=== PATIENT | male | born 1970 | race Caucasian/White ===

== ENCOUNTER 2016-12-10 21:37 | Inpatient (IN) | payer MEDICARE, MEDICAID ==
[~2016-12-10] VITALS: Ht 167.6 cm; Wt 90.7 kg
[~2016-12-10 21:37] MED LIST: BENZ1TAB10 PO; DSS100 PO; FISH1CAP27 PO; GABA-533 PO; HYDR-4031 PO; MV-M1TAB2 PO; OMEP20 PO; QUET200T PO; SIMV-259 PO
[2016-12-10] MEDS ORDERED: LORazepam 2 MG TABLET PO PRN (22:00)
[2016-12-10] MEDS ORDERED: ZOLPIDEM TARTRATE 10 MG TABLET PO PRN (22:00)
[2016-12-10] MEDS ORDERED: QUEtiapine FUMARATE 100 MG TABLET PO PRN (22:00)
[2016-12-10] MEDS ORDERED: HALOPERIDOL 5 MG TABLET PO PRN (22:00)
[2016-12-10 22:36] VITALS: BP 108/78
[2016-12-10 23:49] VITALS: BP 110/68
[2016-12-11] MEDS ORDERED: PNEUMOCOCCAL VACCINE POLYVALENT 0.5 ML VIAL [PPSV23] IM ONE (03:15)
[2016-12-11 08:03] LABS: BASOPHILS % (AUTO) 0.2 % (0.0-2.0); EOSINOPHILS % (AUTO) 3.7 % (1.0-6.0); HEMATOCRIT 46.6 % (41-53); HEMOGLOBIN 15.1 g/dL (13.5-17.5); LYMPHOCYTES # (AUTO) 2.7 K/uL (1.0-4.8); LYMPHOCYTES % (AUTO) 26.2 % (22.0-44.0); MEAN CORPUSCULAR HEMOGLOBIN 28.7 pg (26.0-34.0); MEAN CORPUSCULAR HGB CONC 32.5 G/dL (31.0-37.0); MEAN CORPUSCULAR VOLUME 88 fL (80-100); MONOCYTES # (AUTO) 1.1 K/uL (0.1-1.0); MONOCYTES % (AUTO) 10.4 % (2.0-9.0); NEUTROPHILS # (AUTO) 6.1 K/uL (1.8-7.7); NEUTROPHILS % (AUTO) 59.5 % (40.0-70.0); PLATELET COUNT (AUTO) 307 K/uL (150-450); RED BLOOD CELL COUNT(AUTO) 5.26 MIL/uL (4.50-5.90); RED CELL DISTRIBUTION WIDTH 15.1 % (11.5-14.5); WHITE BLOOD COUNT (AUTO) 10.3 K/uL (4.5-11.0)
[2016-12-11 08:10] VITALS: BP 121/67
[2016-12-11 08:20] LABS: ALANINE AMINOTRANSFERASE 44 U/L (12-78); ALBUMIN 3.5 g/dL (3.4-5.0); ANION GAP 8 mmol/L (8-16); ASPARTATE AMINOTRANSFERASE 28 U/L (15-37); BILIRUBIN,TOTAL 0.3 mg/dL (0.1-1.0); CALCIUM, TOTAL 8.9 mg/dL (8.8-10.5); CARBON DIOXIDE 27 mmol/L (22-29); CHLORIDE 105 mmol/L (98-107); CREATININE 1.04 mg/dL (0.60-1.30); GLOMERULAR FILTR. RATE CALC > 60 mL/min (>60); POTASSIUM 4.7 mmol/L (3.5-5.1); SODIUM SERUM 140 mmol/L (136-145); TOTAL PROTEIN, SERUM 6.7 g/dL (6.4-8.2); UREA NITROGEN, BLOOD 17 mg/dL (7-18)
[2016-12-11] MEDS ORDERED: PETROLATUM,WHITE 71 GM JELLY TP PRN (09:00)
[2016-12-11] MEDS ORDERED: CloNIDine HCL 0.1 MG TABLET PO PRN (09:00)
[2016-12-11] MEDS ORDERED: MAG HYDROX/AL HYDROX/SIMETH ES 30 ML SUSPENSION UDCUP PO PRN (09:00)
[2016-12-11] MEDS ORDERED: ALBUTEROL SULFATE HFA 90 MCG/PUFF 8 GM INHALER IH PRN (09:00)
[2016-12-11] MEDS ORDERED: MAGNESIUM HYDROXIDE SUSPENSION 30 ML UDCUP PO PRN (09:00)
[2016-12-11] MEDS ORDERED: ACETAMINOPHEN 325 MG TABLET PO PRN (09:00)
[2016-12-11] MEDS ORDERED: LOPERAMIDE HCL 2 MG CAPSULE PO PRN (09:00)
[2016-12-11] MEDS ORDERED: BACITRACIN 28.4 GM OINTMENT TP PRN (09:00)
[2016-12-11] MEDS ORDERED: ONDANSETRON HCL 4 MG TABLET PO PRN (09:00)
[2016-12-11] MEDS ORDERED: BENZOCAINE/MENTHOL LOZENGE MM PRN (09:00)
[2016-12-11] MEDS: BENZTROPINE MESYLATE 1 MG TABLET PO SCH ×2 (09:36→20:14)
[2016-12-11] MEDS: FISH OIL/OMEGA-3 FATTY ACIDS 500 MG CAPSULE PO SCH (09:36)
[2016-12-11] MEDS: DOCUSATE SODIUM 250 MG CAPSULE PO SCH ×2 (09:36→16:27)
[2016-12-11] MEDS: GABAPENTIN 400 MG CAPSULE PO SCH ×4 (09:37→20:14)
[2016-12-11] MEDS: HydrOXYzine PAMOATE 25 MG CAPSULE PO SCH ×3 (09:37→20:13)
[2016-12-11] MEDS: MULTIVITAMINS WITH MINERALS, THERAPEUTIC TABLET PO SCH (09:37)
[2016-12-11 16:10] VITALS: BP 119/83
[2016-12-11] MEDS: IBUPROFEN 600 MG TABLET PO PRN (16:52)
[2016-12-11] MEDS: QUEtiapine FUMARATE 200 MG TABLET PO SCH (20:13)
[2016-12-12 01:19] VITALS: BP 121/79
[2016-12-12] MEDS: FISH OIL/OMEGA-3 FATTY ACIDS 500 MG CAPSULE PO SCH (08:36)
[2016-12-12] MEDS: BENZTROPINE MESYLATE 1 MG TABLET PO SCH ×2 (08:36→20:24)
[2016-12-12] MEDS: DOCUSATE SODIUM 250 MG CAPSULE PO SCH ×2 (08:36→17:07)
[2016-12-12] MEDS: HydrOXYzine PAMOATE 25 MG CAPSULE PO SCH ×3 (08:36→20:24)
[2016-12-12] MEDS: GABAPENTIN 400 MG CAPSULE PO SCH ×4 (08:36→20:24)
[2016-12-12] MEDS: MULTIVITAMINS WITH MINERALS, THERAPEUTIC TABLET PO SCH (08:36)
[2016-12-12 08:37] VITALS: BP 102/68
[2016-12-12] MEDS: IBUPROFEN 600 MG TABLET PO PRN ×2 (08:39→21:09)
[2016-12-12 16:13] VITALS: BP 106/63
[2016-12-12] MEDS: QUEtiapine FUMARATE 200 MG TABLET PO SCH (20:24)
[2016-12-12 21:09] VITALS: BP 110/66
[2016-12-13 06:34] VITALS: BP 104/62
[2016-12-13 08:28] VITALS: BP 117/68
[2016-12-13] MEDS: HydrOXYzine PAMOATE 25 MG CAPSULE PO SCH ×3 (09:32→20:38)
[2016-12-13] MEDS: MULTIVITAMINS WITH MINERALS, THERAPEUTIC TABLET PO SCH (09:32)
[2016-12-13] MEDS: FISH OIL/OMEGA-3 FATTY ACIDS 500 MG CAPSULE PO SCH (09:32)
[2016-12-13] MEDS: BENZTROPINE MESYLATE 1 MG TABLET PO SCH ×2 (09:32→20:38)
[2016-12-13] MEDS: DOCUSATE SODIUM 250 MG CAPSULE PO SCH ×2 (09:32→16:37)
[2016-12-13] MEDS: GABAPENTIN 400 MG CAPSULE PO SCH ×4 (09:35→20:38)
[2016-12-13] MEDS: IBUPROFEN 600 MG TABLET PO PRN ×2 (09:53→18:57)
[2016-12-13 09:56] LABS: APPEARANCE,URINE CLEAR (CLEAR); GLUCOSE, URINE (UA) NEGATIVE (NEGATIVE); KETONES,URINE NEGATIVE (NEGATIVE); LEUKOCYTE ESTERASE ,URINE NEGATIVE (NEGATIVE); OCCULT BLOOD,URINE NEGATIVE (NEGATIVE); PH,URINE 6.5 (5.0-8.0); PROTEIN,URINE NEGATIVE (NEGATIVE)
[2016-12-13 09:57] VITALS: BP 121/85
[2016-12-13 10:01] LABS: ADD UA MICROSCOPIC NO
[2016-12-13 16:00] VITALS: BP 119/76
[2016-12-13 18:53] VITALS: BP 124/66
[2016-12-13] MEDS: QUEtiapine FUMARATE 200 MG TABLET PO SCH (20:37)
[2016-12-14 02:29] VITALS: BP 102/71
[2016-12-14] MEDS: DOCUSATE SODIUM 250 MG CAPSULE PO SCH ×2 (08:38→16:27)
[2016-12-14] MEDS: MULTIVITAMINS WITH MINERALS, THERAPEUTIC TABLET PO SCH (08:38)
[2016-12-14] MEDS: BENZTROPINE MESYLATE 1 MG TABLET PO SCH ×2 (08:38→20:40)
[2016-12-14] MEDS: GABAPENTIN 400 MG CAPSULE PO SCH ×3 (08:38→17:07)
[2016-12-14] MEDS: HydrOXYzine PAMOATE 25 MG CAPSULE PO SCH ×3 (08:38→20:41)
[2016-12-14 08:45] VITALS: BP 118/79
[2016-12-14] MEDS: IBUPROFEN 600 MG TABLET PO PRN ×2 (09:01→20:22)
[2016-12-14] MEDS: FISH OIL/OMEGA-3 FATTY ACIDS 500 MG CAPSULE PO SCH (09:01)
[2016-12-14 16:23] VITALS: BP 118/86
[2016-12-14 20:15] VITALS: BP 122/83
[2016-12-14] MEDS: GABAPENTIN 300 MG CAPSULE PO SCH (20:41)
[2016-12-14] MEDS: QUEtiapine FUMARATE 200 MG TABLET PO SCH (20:41)
[2016-12-15 00:06] VITALS: BP 105/70
[2016-12-15] MEDS: GABAPENTIN 300 MG CAPSULE PO SCH ×4 (06:42→20:38)
[2016-12-15] MEDS: HydrOXYzine PAMOATE 25 MG CAPSULE PO SCH ×3 (07:54→20:38)
[2016-12-15] MEDS: MULTIVITAMINS WITH MINERALS, THERAPEUTIC TABLET PO SCH (07:54)
[2016-12-15] MEDS: DOCUSATE SODIUM 250 MG CAPSULE PO SCH ×2 (07:54→18:05)
[2016-12-15] MEDS: BENZTROPINE MESYLATE 1 MG TABLET PO SCH ×2 (07:54→20:39)
[2016-12-15] MEDS: FISH OIL/OMEGA-3 FATTY ACIDS 500 MG CAPSULE PO SCH (08:00)
[2016-12-15 08:13] VITALS: BP 123/84
[2016-12-15 16:00] VITALS: BP 120/86
[2016-12-15] MEDS: IBUPROFEN 600 MG TABLET PO PRN (20:20)
[2016-12-15 20:21] VITALS: BP 119/79
[2016-12-15] MEDS: QUEtiapine FUMARATE 200 MG TABLET PO SCH (20:38)
[2016-12-16 00:03] VITALS: BP 117/71
[2016-12-16] MEDS: GABAPENTIN 300 MG CAPSULE PO SCH ×4 (07:18→20:45)
[2016-12-16] MEDS: DOCUSATE SODIUM 250 MG CAPSULE PO SCH ×2 (08:06→17:10)
[2016-12-16] MEDS: BENZTROPINE MESYLATE 1 MG TABLET PO SCH ×2 (08:06→20:44)
[2016-12-16] MEDS: MULTIVITAMINS WITH MINERALS, THERAPEUTIC TABLET PO SCH (08:06)
[2016-12-16] MEDS: FISH OIL/OMEGA-3 FATTY ACIDS 500 MG CAPSULE PO SCH (08:06)
[2016-12-16] MEDS: HydrOXYzine PAMOATE 25 MG CAPSULE PO SCH ×3 (08:08→20:45)
[2016-12-16 09:07] VITALS: BP 127/98
[2016-12-16] MEDS: IBUPROFEN 600 MG TABLET PO PRN (10:07)
[2016-12-16 10:10] VITALS: BP 108/77
[2016-12-16 16:13] VITALS: BP 115/75
[2016-12-16] MEDS: QUEtiapine FUMARATE 200 MG TABLET PO SCH (20:45)
[2016-12-17 02:43] VITALS: BP 109/79
[2016-12-17] MEDS: IBUPROFEN 600 MG TABLET PO PRN ×3 (03:18→21:41)
[2016-12-17] MEDS: GABAPENTIN 300 MG CAPSULE PO SCH ×4 (06:46→20:41)
[2016-12-17] MEDS: FISH OIL/OMEGA-3 FATTY ACIDS 500 MG CAPSULE PO SCH (08:33)
[2016-12-17] MEDS: DOCUSATE SODIUM 250 MG CAPSULE PO SCH ×2 (08:33→17:12)
[2016-12-17] MEDS: BENZTROPINE MESYLATE 1 MG TABLET PO SCH ×2 (08:34→20:40)
[2016-12-17] MEDS: HydrOXYzine PAMOATE 25 MG CAPSULE PO SCH ×3 (08:34→20:41)
[2016-12-17] MEDS: MULTIVITAMINS WITH MINERALS, THERAPEUTIC TABLET PO SCH (08:34)
[2016-12-17 09:21] VITALS: BP 114/79
[2016-12-17 12:22] VITALS: BP 118/80
[2016-12-17 16:27] VITALS: BP 120/74
[2016-12-17] MEDS: QUEtiapine FUMARATE 200 MG TABLET PO SCH (20:41)
[2016-12-17 21:41] VITALS: BP 116/76
[2016-12-18 02:14] VITALS: BP 120/71
[2016-12-18] MEDS: GABAPENTIN 300 MG CAPSULE PO SCH ×4 (06:25→20:34)
[2016-12-18] MEDS: DOCUSATE SODIUM 250 MG CAPSULE PO SCH ×2 (08:18→16:28)
[2016-12-18] MEDS: MULTIVITAMINS WITH MINERALS, THERAPEUTIC TABLET PO SCH (08:18)
[2016-12-18] MEDS: QUEtiapine FUMARATE 100 MG TABLET PO SCH (08:18)
[2016-12-18] MEDS: HydrOXYzine PAMOATE 25 MG CAPSULE PO SCH ×3 (08:18→20:34)
[2016-12-18] MEDS: BENZTROPINE MESYLATE 1 MG TABLET PO SCH ×2 (08:18→20:34)
[2016-12-18] MEDS: FISH OIL/OMEGA-3 FATTY ACIDS 500 MG CAPSULE PO SCH (08:18)
[2016-12-18 08:22] VITALS: BP 118/79
[2016-12-18 16:14] VITALS: BP 123/72
[2016-12-18] MEDS: IBUPROFEN 600 MG TABLET PO PRN (16:29)
[2016-12-18] MEDS: QUEtiapine FUMARATE 200 MG TABLET PO SCH (20:34)
[2016-12-19 01:15] VITALS: BP 112/78
[2016-12-19] MEDS: IBUPROFEN 600 MG TABLET PO PRN ×2 (06:12→20:55)
[2016-12-19] MEDS: GABAPENTIN 300 MG CAPSULE PO SCH ×4 (06:46→20:16)
[2016-12-19 08:05] VITALS: BP 123/78
[2016-12-19] MEDS: MULTIVITAMINS WITH MINERALS, THERAPEUTIC TABLET PO SCH (08:59)
[2016-12-19] MEDS: HydrOXYzine PAMOATE 25 MG CAPSULE PO SCH ×3 (08:59→20:15)
[2016-12-19] MEDS: DOCUSATE SODIUM 250 MG CAPSULE PO SCH ×2 (08:59→16:15)
[2016-12-19] MEDS: BENZTROPINE MESYLATE 1 MG TABLET PO SCH ×2 (08:59→20:15)
[2016-12-19] MEDS: FISH OIL/OMEGA-3 FATTY ACIDS 500 MG CAPSULE PO SCH (09:00)
[2016-12-19] MEDS: QUEtiapine FUMARATE 100 MG TABLET PO SCH (09:10)
[2016-12-19 16:21] VITALS: BP 105/73
[2016-12-19] MEDS: QUEtiapine FUMARATE 200 MG TABLET PO SCH (20:15)
[2016-12-19 20:57] VITALS: BP 134/84
[2016-12-20 03:17] VITALS: BP 119/68
[2016-12-20] MEDS: GABAPENTIN 300 MG CAPSULE PO SCH (06:35)
[2016-12-20 08:14] VITALS: BP 120/76
[2016-12-20] MEDS: HydrOXYzine PAMOATE 25 MG CAPSULE PO SCH (08:31)
[2016-12-20] MEDS: BENZTROPINE MESYLATE 1 MG TABLET PO SCH (08:31)
[2016-12-20] MEDS: MULTIVITAMINS WITH MINERALS, THERAPEUTIC TABLET PO SCH (08:31)
[2016-12-20] MEDS: QUEtiapine FUMARATE 100 MG TABLET PO SCH (08:31)
[2016-12-20] MEDS: DOCUSATE SODIUM 250 MG CAPSULE PO SCH (08:31)
[2016-12-20] MEDS: FISH OIL/OMEGA-3 FATTY ACIDS 500 MG CAPSULE PO SCH (08:31)
[2016-12-20] MEDS ORDERED: QUET100T PO (08:46)
== END 2016-12-20 09:15 | disposition home or self-care (01) | DRG 885 ==
LOC: B2X 22:24 → EDSTATUS 22:53 → B2X 12-13 14:54
PROVIDERS: ADMIT Psychiatry & Neurology Psychiatry; ATTEND Psychiatry & Neurology Psychiatry
DX: F31.63 Bipolar disorder, current episode mixed, severe, without psychotic features (principal); R45.851 Suicidal ideations; F15.20 Other stimulant dependence, uncomplicated; J44.9 Chronic obstructive pulmonary disease, unspecified; K59.09 Other constipation; E66.9 Obesity, unspecified; F12.10 Cannabis abuse, uncomplicated; E78.5 Hyperlipidemia, unspecified; F41.9 Anxiety disorder, unspecified; F25.9 Schizoaffective disorder, unspecified; K21.9 Gastro-esophageal reflux disease without esophagitis; G47.00 Insomnia, unspecified; F17.210 Nicotine dependence, cigarettes, uncomplicated; Z71.6 Tobacco abuse counseling; Z71.51 Drug abuse counseling and surveillance of drug abuser; Z68.32 Body mass index [BMI] 32.0-32.9, adult; Z90.49 Acquired absence of other specified parts of digestive tract; Z80.0 Family history of malignant neoplasm of digestive organs; Z28.21 Immunization not carried out because of patient refusal
CPT/HCPCS: 80307; 82607; 82746

== ENCOUNTER 2016-12-27 12:43 | Inpatient (IN) | payer MEDICARE, MEDICAID ==
[~2016-12-27] VITALS: Ht 167.6 cm; Wt 93.8 kg
[~2016-12-27 12:43] MED LIST changes: -OMEP20 PO; +QUET100T PO; -SIMV-259 PO
[2016-12-27] MEDS ORDERED: DOCU250C91 PO (13:38)
[2016-12-27] MEDS ORDERED: GABA-531 PO (13:38)
[2016-12-27 16:04] VITALS: BP 118/86
[2016-12-27] MEDS: GABAPENTIN 300 MG CAPSULE PO SCH ×2 (16:30→20:38)
[2016-12-27] MEDS: HydrOXYzine PAMOATE 25 MG CAPSULE PO SCH ×2 (16:30→20:38)
[2016-12-27] MEDS: DOCUSATE SODIUM 250 MG CAPSULE PO SCH (16:30)
[2016-12-27] MEDS ORDERED: PNEUMOCOCCAL VACCINE POLYVALENT 0.5 ML VIAL [PPSV23] IM ONE (17:15)
[2016-12-27] MEDS ORDERED: IBUPROFEN 600 MG TABLET PO PRN (20:30)
[2016-12-27] MEDS: QUEtiapine FUMARATE 300 MG TABLET PO SCH (20:38)
[2016-12-27] MEDS: BENZTROPINE MESYLATE 1 MG TABLET PO SCH (20:38)
[2016-12-28 01:49] VITALS: BP 106/68
[2016-12-28 01:50] VITALS: BP 106/68
[2016-12-28] MEDS ORDERED: MAG HYDROX/AL HYDROX/SIMETH ES 30 ML SUSPENSION UDCUP PO PRN (08:00)
[2016-12-28] MEDS ORDERED: ACETAMINOPHEN 325 MG TABLET PO PRN (08:00)
[2016-12-28] MEDS ORDERED: CloNIDine HCL 0.1 MG TABLET PO PRN (08:00)
[2016-12-28] MEDS ORDERED: BACITRACIN 28.4 GM OINTMENT TP PRN (08:00)
[2016-12-28] MEDS ORDERED: BENZOCAINE/MENTHOL LOZENGE MM PRN (08:00)
[2016-12-28] MEDS ORDERED: PETROLATUM,WHITE 71 GM JELLY TP PRN (08:00)
[2016-12-28] MEDS ORDERED: ALBUTEROL SULFATE HFA 90 MCG/PUFF 8 GM INHALER IH PRN (08:00)
[2016-12-28] MEDS ORDERED: ONDANSETRON HCL 4 MG TABLET PO PRN (08:00)
[2016-12-28] MEDS ORDERED: LOPERAMIDE HCL 2 MG CAPSULE PO PRN (08:00)
[2016-12-28] MEDS ORDERED: MAGNESIUM HYDROXIDE SUSPENSION 30 ML UDCUP PO PRN (08:00)
[2016-12-28 08:14] VITALS: BP 111/69
[2016-12-28] MEDS: HydrOXYzine PAMOATE 25 MG CAPSULE PO SCH ×3 (09:25→20:42)
[2016-12-28] MEDS: GABAPENTIN 300 MG CAPSULE PO SCH ×4 (09:25→20:42)
[2016-12-28] MEDS: FISH OIL/OMEGA-3 FATTY ACIDS 500 MG CAPSULE PO SCH (09:25)
[2016-12-28] MEDS: DOCUSATE SODIUM 250 MG CAPSULE PO SCH ×2 (09:25→16:43)
[2016-12-28] MEDS: BENZTROPINE MESYLATE 1 MG TABLET PO SCH ×2 (09:29→20:42)
[2016-12-28] MEDS: MULTIVITAMINS WITH MINERALS, THERAPEUTIC TABLET PO SCH (09:29)
[2016-12-28] MEDS: OMEPRAZOLE 20 MG CAPSULE PO SCH (09:38)
[2016-12-28 16:00] VITALS: BP 120/75
[2016-12-28] MEDS: IBUPROFEN 600 MG TABLET PO PRN (16:09)
[2016-12-28] MEDS: QUEtiapine FUMARATE 300 MG TABLET PO SCH (21:00)
[2016-12-29 06:15] VITALS: BP 122/70
[2016-12-29] MEDS: IBUPROFEN 600 MG TABLET PO PRN ×2 (06:23→20:53)
[2016-12-29 08:14] VITALS: BP 109/65
[2016-12-29] MEDS: BENZTROPINE MESYLATE 1 MG TABLET PO SCH ×2 (09:08→20:45)
[2016-12-29] MEDS: GABAPENTIN 300 MG CAPSULE PO SCH ×4 (09:09→20:45)
[2016-12-29] MEDS: FISH OIL/OMEGA-3 FATTY ACIDS 500 MG CAPSULE PO SCH (09:09)
[2016-12-29] MEDS: OMEPRAZOLE 20 MG CAPSULE PO SCH (09:09)
[2016-12-29] MEDS: MULTIVITAMINS WITH MINERALS, THERAPEUTIC TABLET PO SCH (09:09)
[2016-12-29] MEDS: DOCUSATE SODIUM 250 MG CAPSULE PO SCH ×2 (09:09→16:39)
[2016-12-29] MEDS: HydrOXYzine PAMOATE 25 MG CAPSULE PO SCH ×3 (09:09→20:45)
[2016-12-29 16:19] VITALS: BP 107/62
[2016-12-29 20:53] VITALS: BP 120/75
[2016-12-29] MEDS: QUEtiapine FUMARATE 300 MG TABLET PO SCH (21:00)
[2016-12-29] MEDS: QUEtiapine FUMARATE 200 MG TABLET PO SCH (22:36)
[2016-12-30 06:23] VITALS: BP 110/70
[2016-12-30 08:15] VITALS: BP 114/83
[2016-12-30] MEDS: BENZTROPINE MESYLATE 1 MG TABLET PO SCH ×2 (09:20→20:47)
[2016-12-30] MEDS: DOCUSATE SODIUM 250 MG CAPSULE PO SCH ×2 (09:20→16:31)
[2016-12-30] MEDS: FISH OIL/OMEGA-3 FATTY ACIDS 500 MG CAPSULE PO SCH (09:20)
[2016-12-30] MEDS: OMEPRAZOLE 20 MG CAPSULE PO SCH (09:20)
[2016-12-30] MEDS: MULTIVITAMINS WITH MINERALS, THERAPEUTIC TABLET PO SCH (09:20)
[2016-12-30] MEDS: HydrOXYzine PAMOATE 25 MG CAPSULE PO SCH ×3 (09:21→20:47)
[2016-12-30] MEDS: GABAPENTIN 300 MG CAPSULE PO SCH ×4 (09:23→20:47)
[2016-12-30] MEDS: IBUPROFEN 600 MG TABLET PO PRN ×2 (10:08→22:11)
[2016-12-30 16:28] VITALS: BP 109/65
[2016-12-30] MEDS: QUEtiapine FUMARATE 200 MG TABLET PO SCH (20:47)
[2016-12-30] MEDS ORDERED: TOPIRAMATE 25 MG TABLET PO SCH (21:00)
[2016-12-30 22:11] VITALS: BP 128/78
[2016-12-31 00:15] VITALS: BP 113/66
[2016-12-31] MEDS: HydrOXYzine PAMOATE 25 MG CAPSULE PO SCH ×3 (08:12→21:27)
[2016-12-31] MEDS: DOCUSATE SODIUM 250 MG CAPSULE PO SCH ×2 (08:12→18:36)
[2016-12-31] MEDS: FISH OIL/OMEGA-3 FATTY ACIDS 500 MG CAPSULE PO SCH (08:12)
[2016-12-31] MEDS: MULTIVITAMINS WITH MINERALS, THERAPEUTIC TABLET PO SCH (08:12)
[2016-12-31] MEDS: BENZTROPINE MESYLATE 1 MG TABLET PO SCH ×2 (08:12→20:54)
[2016-12-31] MEDS: OMEPRAZOLE 20 MG CAPSULE PO SCH (08:12)
[2016-12-31] MEDS: GABAPENTIN 100 MG CAPSULE PO SCH ×2 (08:12→18:36)
[2016-12-31 08:16] VITALS: BP 115/68
[2016-12-31 09:19] VITALS: BP 118/68
[2016-12-31] MEDS: IBUPROFEN 600 MG TABLET PO PRN ×2 (09:19→22:56)
[2016-12-31 16:15] VITALS: BP 139/78
[2016-12-31] MEDS: QUEtiapine FUMARATE 200 MG TABLET PO SCH (20:54)
[2016-12-31] MEDS: TOPIRAMATE 25 MG TABLET PO SCH (21:27)
[2017-01-01 06:59] VITALS: BP 119/81
[2017-01-01] MEDS: BENZTROPINE MESYLATE 1 MG TABLET PO SCH ×2 (09:12→20:37)
[2017-01-01] MEDS: FISH OIL/OMEGA-3 FATTY ACIDS 500 MG CAPSULE PO SCH (09:12)
[2017-01-01] MEDS: HydrOXYzine PAMOATE 25 MG CAPSULE PO SCH ×3 (09:12→20:37)
[2017-01-01] MEDS: MULTIVITAMINS WITH MINERALS, THERAPEUTIC TABLET PO SCH (09:12)
[2017-01-01] MEDS: GABAPENTIN 100 MG CAPSULE PO SCH ×2 (09:12→16:36)
[2017-01-01] MEDS: DOCUSATE SODIUM 250 MG CAPSULE PO SCH ×2 (09:12→16:36)
[2017-01-01] MEDS: OMEPRAZOLE 20 MG CAPSULE PO SCH (09:13)
[2017-01-01 09:17] VITALS: BP 108/63
[2017-01-01] MEDS: IBUPROFEN 600 MG TABLET PO PRN ×2 (09:22→16:09)
[2017-01-01 16:04] VITALS: BP 114/87
[2017-01-01] MEDS: QUEtiapine FUMARATE 200 MG TABLET PO SCH (20:37)
[2017-01-01] MEDS: TOPIRAMATE 25 MG TABLET PO SCH (20:37)
[2017-01-02] MEDS: FISH OIL/OMEGA-3 FATTY ACIDS 500 MG CAPSULE PO SCH (08:59)
[2017-01-02] MEDS: GABAPENTIN 100 MG CAPSULE PO SCH ×2 (09:00→16:41)
[2017-01-02] MEDS: MULTIVITAMINS WITH MINERALS, THERAPEUTIC TABLET PO SCH (09:00)
[2017-01-02] MEDS: BENZTROPINE MESYLATE 1 MG TABLET PO SCH ×2 (09:00→20:48)
[2017-01-02] MEDS: HydrOXYzine PAMOATE 25 MG CAPSULE PO SCH ×3 (09:00→20:48)
[2017-01-02] MEDS: OMEPRAZOLE 20 MG CAPSULE PO SCH (09:00)
[2017-01-02] MEDS: DOCUSATE SODIUM 250 MG CAPSULE PO SCH ×2 (09:00→16:41)
[2017-01-02 09:02] VITALS: BP 103/71
[2017-01-02] MEDS: IBUPROFEN 600 MG TABLET PO PRN ×2 (09:02→16:11)
[2017-01-02 16:11] VITALS: BP 112/78
[2017-01-02] MEDS: QUEtiapine FUMARATE 200 MG TABLET PO SCH (20:48)
[2017-01-02] MEDS: TOPIRAMATE 25 MG TABLET PO SCH (20:48)
[2017-01-03 08:13] VITALS: BP 117/62
[2017-01-03] MEDS: MULTIVITAMINS WITH MINERALS, THERAPEUTIC TABLET PO SCH (09:04)
[2017-01-03] MEDS: HydrOXYzine PAMOATE 25 MG CAPSULE PO SCH ×3 (09:04→20:44)
[2017-01-03] MEDS: DOCUSATE SODIUM 250 MG CAPSULE PO SCH ×2 (09:04→16:52)
[2017-01-03] MEDS: FISH OIL/OMEGA-3 FATTY ACIDS 500 MG CAPSULE PO SCH (09:04)
[2017-01-03] MEDS: BENZTROPINE MESYLATE 1 MG TABLET PO SCH ×2 (09:04→20:44)
[2017-01-03] MEDS: OMEPRAZOLE 20 MG CAPSULE PO SCH (09:04)
[2017-01-03 16:18] VITALS: BP 111/64
[2017-01-03 19:49] VITALS: BP 125/70
[2017-01-03] MEDS: IBUPROFEN 600 MG TABLET PO PRN (19:49)
[2017-01-03] MEDS: QUEtiapine FUMARATE 200 MG TABLET PO SCH (20:44)
[2017-01-03] MEDS ORDERED: TOPIRAMATE 25 MG TABLET PO SCH (21:00)
[2017-01-03] MEDS ORDERED: OMEP20 PO (22:12)
[2017-01-03] MEDS ORDERED: TOPI25 PO (22:12)
[2017-01-03] MEDS ORDERED: OMEG-12 PO (22:12)
[2017-01-04 08:18] VITALS: BP 102/69
[2017-01-04] MEDS: HydrOXYzine PAMOATE 25 MG CAPSULE PO SCH (08:47)
[2017-01-04] MEDS: DOCUSATE SODIUM 250 MG CAPSULE PO SCH (08:47)
[2017-01-04] MEDS: MULTIVITAMINS WITH MINERALS, THERAPEUTIC TABLET PO SCH (08:47)
[2017-01-04] MEDS: FISH OIL/OMEGA-3 FATTY ACIDS 500 MG CAPSULE PO SCH (08:47)
[2017-01-04] MEDS: BENZTROPINE MESYLATE 1 MG TABLET PO SCH (08:47)
[2017-01-04] MEDS: OMEPRAZOLE 20 MG CAPSULE PO SCH (08:47)
== END 2017-01-04 09:45 | disposition home or self-care (01) | DRG 885 ==
LOC: B2X 13:18
PROVIDERS: ADMIT Psychiatry & Neurology Psychiatry; ATTEND Psychiatry & Neurology Psychiatry
DX: F31.63 Bipolar disorder, current episode mixed, severe, without psychotic features (principal); R45.851 Suicidal ideations; K59.00 Constipation, unspecified; R51 Headache; K21.9 Gastro-esophageal reflux disease without esophagitis; J44.9 Chronic obstructive pulmonary disease, unspecified; F12.90 Cannabis use, unspecified, uncomplicated; F17.200 Nicotine dependence, unspecified, uncomplicated; E66.9 Obesity, unspecified; F41.9 Anxiety disorder, unspecified; G47.00 Insomnia, unspecified; Z71.6 Tobacco abuse counseling; Z91.19 Patient's noncompliance with other medical treatment and regimen; Z79.899 Other long term (current) drug therapy; Z68.33 Body mass index [BMI] 33.0-33.9, adult; Z98.890 Other specified postprocedural states; Z91.030 Bee allergy status; Z91.018 Allergy to other foods; Z71.51 Drug abuse counseling and surveillance of drug abuser; Z28.21 Immunization not carried out because of patient refusal; Z80.0 Family history of malignant neoplasm of digestive organs
CPT/HCPCS: 87081

== ENCOUNTER 2017-03-01 14:19 | Inpatient (IN) | payer MEDICARE, MEDICAID ==
[~2017-03-01] VITALS: Ht 170.2 cm; Wt 85.3 kg
[~2017-03-01 14:19] MED LIST changes: +DOCU250C91 PO; -DSS100 PO; -FISH1CAP27 PO; -GABA-533 PO; -MV-M1TAB2 PO; +OMEG-12 PO; +OMEP20 PO; -QUET200T PO; +TOPI25 PO
[2017-03-01 14:40] VITALS: BP 109/52
[2017-03-01] MEDS ORDERED: ChlorproMAZINE HCL 100 MG TABLET PO PRN (14:45)
[2017-03-01] MEDS ORDERED: PNEUMOCOCCAL VACCINE POLYVALENT 0.5 ML VIAL [PPSV23] IM ONE (16:00)
[2017-03-01] MEDS: HydrOXYzine PAMOATE 25 MG CAPSULE PO SCH ×2 (16:49→21:07)
[2017-03-01 20:38] VITALS: BP 125/63
[2017-03-01] MEDS: BENZTROPINE MESYLATE 1 MG TABLET PO SCH (21:06)
[2017-03-01] MEDS: TOPIRAMATE 25 MG TABLET PO SCH (21:07)
[2017-03-01] MEDS ORDERED: BACITRACIN 28.4 GM OINTMENT TP PRN (21:30)
[2017-03-02 00:30] VITALS: BP 130/70
[2017-03-02 08:26] LABS: ALANINE AMINOTRANSFERASE 57 U/L (12-78); ALBUMIN 3.1 g/dL (3.4-5.0); ANION GAP 8 mmol/L (8-16); ASPARTATE AMINOTRANSFERASE 32 U/L (15-37); BILIRUBIN,TOTAL 0.2 mg/dL (0.1-1.0); CALCIUM, TOTAL 9.1 mg/dL (8.8-10.5); CARBON DIOXIDE 26 mmol/L (22-29); CHLORIDE 106 mmol/L (98-107); CREATININE 1.01 mg/dL (0.60-1.30); GLOMERULAR FILTR. RATE CALC > 60 mL/min (>60); POTASSIUM 3.8 mmol/L (3.5-5.1); SODIUM SERUM 140 mmol/L (136-145); TOTAL PROTEIN, SERUM 6.5 g/dL (6.4-8.2); UREA NITROGEN, BLOOD 16 mg/dL (7-18)
[2017-03-02 08:30] LABS: BASOPHILS % (AUTO) 0.3 % (0.0-2.0); EOSINOPHILS % (AUTO) 4.5 % (1.0-6.0); HEMATOCRIT 46.5 % (41-53); HEMOGLOBIN 14.7 g/dL (13.5-17.5); LYMPHOCYTES # (AUTO) 2.4 K/uL (1.0-4.8); LYMPHOCYTES % (AUTO) 30.9 % (22.0-44.0); MEAN CORPUSCULAR HEMOGLOBIN 28.6 pg (26.0-34.0); MEAN CORPUSCULAR HGB CONC 31.7 G/dL (31.0-37.0); MEAN CORPUSCULAR VOLUME 90 fL (80-100); MONOCYTES # (AUTO) 0.8 K/uL (0.1-1.0); MONOCYTES % (AUTO) 10.5 % (2.0-9.0); NEUTROPHILS # (AUTO) 4.2 K/uL (1.8-7.7); NEUTROPHILS % (AUTO) 53.8 % (40.0-70.0); PLATELET COUNT (AUTO) 317 K/uL (150-450); RED BLOOD CELL COUNT(AUTO) 5.15 MIL/uL (4.50-5.90); RED CELL DISTRIBUTION WIDTH 14.8 % (11.5-14.5); WHITE BLOOD COUNT (AUTO) 7.8 K/uL (4.5-11.0)
[2017-03-02 08:34] VITALS: BP 100/65
[2017-03-02] MEDS: OMEPRAZOLE 20 MG CAPSULE PO SCH (09:29)
[2017-03-02] MEDS: QUEtiapine FUMARATE 200 MG TABLET PO SCH (09:29)
[2017-03-02] MEDS: HydrOXYzine PAMOATE 25 MG CAPSULE PO SCH ×3 (09:29→20:23)
[2017-03-02] MEDS: FISH OIL/OMEGA-3 FATTY ACIDS 500 MG CAPSULE PO SCH (09:29)
[2017-03-02] MEDS: DOCUSATE SODIUM 250 MG CAPSULE PO SCH ×2 (09:29→17:25)
[2017-03-02] MEDS: BENZTROPINE MESYLATE 1 MG TABLET PO SCH ×2 (09:29→20:23)
[2017-03-02 16:26] VITALS: BP 118/75
[2017-03-02] MEDS: TOPIRAMATE 25 MG TABLET PO SCH (20:23)
[2017-03-03 08:19] VITALS: BP 102/67
[2017-03-03] MEDS: DOCUSATE SODIUM 250 MG CAPSULE PO SCH ×2 (08:40→17:04)
[2017-03-03] MEDS: FISH OIL/OMEGA-3 FATTY ACIDS 500 MG CAPSULE PO SCH (08:40)
[2017-03-03] MEDS: OMEPRAZOLE 20 MG CAPSULE PO SCH (08:40)
[2017-03-03] MEDS: QUEtiapine FUMARATE 200 MG TABLET PO SCH (08:40)
[2017-03-03] MEDS: HydrOXYzine PAMOATE 25 MG CAPSULE PO SCH ×3 (08:41→20:57)
[2017-03-03] MEDS: BENZTROPINE MESYLATE 1 MG TABLET PO SCH ×2 (08:41→20:57)
[2017-03-03 16:24] VITALS: BP 126/71
[2017-03-03] MEDS: TOPIRAMATE 25 MG TABLET PO SCH (20:57)
[2017-03-04] MEDS: OMEPRAZOLE 20 MG CAPSULE PO SCH (08:21)
[2017-03-04] MEDS: QUEtiapine FUMARATE 200 MG TABLET PO SCH (08:21)
[2017-03-04] MEDS: FISH OIL/OMEGA-3 FATTY ACIDS 500 MG CAPSULE PO SCH (08:21)
[2017-03-04] MEDS: DOCUSATE SODIUM 250 MG CAPSULE PO SCH ×2 (08:21→16:19)
[2017-03-04] MEDS: BENZTROPINE MESYLATE 1 MG TABLET PO SCH ×2 (08:21→20:21)
[2017-03-04] MEDS: HydrOXYzine PAMOATE 25 MG CAPSULE PO SCH ×3 (08:21→20:21)
[2017-03-04 08:38] VITALS: BP 106/63
[2017-03-04 16:17] VITALS: BP 112/66
[2017-03-04] MEDS: TOPIRAMATE 25 MG TABLET PO SCH (20:21)
[2017-03-05] MEDS: BENZTROPINE MESYLATE 1 MG TABLET PO SCH ×2 (08:07→20:39)
[2017-03-05] MEDS: HydrOXYzine PAMOATE 25 MG CAPSULE PO SCH ×3 (08:07→20:39)
[2017-03-05] MEDS: FISH OIL/OMEGA-3 FATTY ACIDS 500 MG CAPSULE PO SCH (08:07)
[2017-03-05] MEDS: OMEPRAZOLE 20 MG CAPSULE PO SCH (08:07)
[2017-03-05] MEDS: QUEtiapine FUMARATE 200 MG TABLET PO SCH (08:07)
[2017-03-05] MEDS: DOCUSATE SODIUM 250 MG CAPSULE PO SCH ×2 (08:08→16:12)
[2017-03-05] MEDS ORDERED: BENZOCAINE/MENTHOL LOZENGE MM PRN (08:45)
[2017-03-05 08:46] VITALS: BP 128/72
[2017-03-05] MEDS: LORazepam 1 MG TABLET PO PRN (16:13)
[2017-03-05 16:39] VITALS: BP 103/60
[2017-03-05] MEDS: TOPIRAMATE 25 MG TABLET PO SCH (20:39)
[2017-03-06 08:20] VITALS: BP 109/62
[2017-03-06] MEDS: DOCUSATE SODIUM 250 MG CAPSULE PO SCH ×2 (08:56→16:33)
[2017-03-06] MEDS: FISH OIL/OMEGA-3 FATTY ACIDS 500 MG CAPSULE PO SCH (08:56)
[2017-03-06] MEDS: OMEPRAZOLE 20 MG CAPSULE PO SCH (08:56)
[2017-03-06] MEDS: QUEtiapine FUMARATE 200 MG TABLET PO SCH (08:56)
[2017-03-06] MEDS: BENZTROPINE MESYLATE 1 MG TABLET PO SCH ×2 (09:09→20:22)
[2017-03-06] MEDS: HydrOXYzine PAMOATE 25 MG CAPSULE PO SCH ×3 (09:09→20:22)
[2017-03-06] MEDS: LORazepam 1 MG TABLET PO PRN (10:17)
[2017-03-06 16:00] VITALS: BP 113/71
[2017-03-06] MEDS: TOPIRAMATE 25 MG TABLET PO SCH (20:22)
[2017-03-07 08:09] LABS: APPEARANCE,URINE CLEAR (CLEAR); GLUCOSE, URINE (UA) NEGATIVE (NEGATIVE); KETONES,URINE NEGATIVE (NEGATIVE); LEUKOCYTE ESTERASE ,URINE NEGATIVE (NEGATIVE); OCCULT BLOOD,URINE NEGATIVE (NEGATIVE); PH,URINE 5.5 (5.0-8.0); PROTEIN,URINE NEGATIVE (NEGATIVE)
[2017-03-07 08:10] LABS: ADD UA MICROSCOPIC NO
[2017-03-07 08:12] VITALS: BP 117/62
[2017-03-07] MEDS: HydrOXYzine PAMOATE 25 MG CAPSULE PO SCH ×3 (08:49→21:05)
[2017-03-07] MEDS: DOCUSATE SODIUM 250 MG CAPSULE PO SCH ×2 (08:49→16:28)
[2017-03-07] MEDS: FISH OIL/OMEGA-3 FATTY ACIDS 500 MG CAPSULE PO SCH (08:49)
[2017-03-07] MEDS: QUEtiapine FUMARATE 200 MG TABLET PO SCH (08:49)
[2017-03-07] MEDS: BENZTROPINE MESYLATE 1 MG TABLET PO SCH ×2 (08:49→21:04)
[2017-03-07] MEDS: OMEPRAZOLE 20 MG CAPSULE PO SCH (08:49)
[2017-03-07] MEDS: MULTIVITAMINS WITH MINERALS, THERAPEUTIC TABLET PO SCH (08:51)
[2017-03-07 16:13] VITALS: BP 103/71
[2017-03-07] MEDS ORDERED: QUET200T PO (19:49)
[2017-03-07] MEDS: TOPIRAMATE 25 MG TABLET PO SCH (21:04)
[2017-03-07] MEDS: ZOLPIDEM TARTRATE 5 MG TABLET PO PRN (22:28)
[2017-03-08 06:58] VITALS: BP 110/68
[2017-03-08] MEDS: DOCUSATE SODIUM 250 MG CAPSULE PO SCH ×2 (08:25→16:10)
[2017-03-08] MEDS: FISH OIL/OMEGA-3 FATTY ACIDS 500 MG CAPSULE PO SCH (08:25)
[2017-03-08] MEDS: BENZTROPINE MESYLATE 1 MG TABLET PO SCH ×2 (08:25→20:19)
[2017-03-08] MEDS: HydrOXYzine PAMOATE 25 MG CAPSULE PO SCH ×3 (08:25→20:19)
[2017-03-08] MEDS: OMEPRAZOLE 20 MG CAPSULE PO SCH (08:25)
[2017-03-08] MEDS: MULTIVITAMINS WITH MINERALS, THERAPEUTIC TABLET PO SCH (08:26)
[2017-03-08 08:39] VITALS: BP 104/67
[2017-03-08 16:00] VITALS: BP 130/79
[2017-03-08] MEDS: TOPIRAMATE 25 MG TABLET PO SCH (20:19)
[2017-03-08] MEDS ORDERED: QUEtiapine FUMARATE 300 MG TABLET PO SCH (21:00)
[2017-03-08] MEDS: ZOLPIDEM TARTRATE 5 MG TABLET PO PRN (21:26)
[2017-03-09] MEDS ORDERED: QUET300T2 PO (04:56)
[2017-03-09] MEDS ORDERED: TOPI100 PO (04:56)
[2017-03-09] MEDS ORDERED: MV-M1TAB2 PO (04:56)
[2017-03-09 06:26] VITALS: BP 133/69
== END 2017-03-09 07:15 | disposition home or self-care (01) | DRG 885 ==
LOC: B2S 15:10
PROVIDERS: ADMIT Psychiatry & Neurology Psychiatry; ATTEND Psychiatry & Neurology Psychiatry
DX: F31.9 Bipolar disorder, unspecified (principal); R45.851 Suicidal ideations; F15.20 Other stimulant dependence, uncomplicated; K21.9 Gastro-esophageal reflux disease without esophagitis; K59.09 Other constipation; J44.9 Chronic obstructive pulmonary disease, unspecified; E78.5 Hyperlipidemia, unspecified; G47.00 Insomnia, unspecified; R53.83 Other fatigue; F17.200 Nicotine dependence, unspecified, uncomplicated; F22 Delusional disorders; F12.20 Cannabis dependence, uncomplicated; Z56.0 Unemployment, unspecified; Z91.030 Bee allergy status; Z91.02 Food additives allergy status; Z90.89 Acquired absence of other organs; Z71.6 Tobacco abuse counseling; Z71.51 Drug abuse counseling and surveillance of drug abuser; Z79.899 Other long term (current) drug therapy; Z91.19 Patient's noncompliance with other medical treatment and regimen; Z28.21 Immunization not carried out because of patient refusal; Z80.0 Family history of malignant neoplasm of digestive organs
CPT/HCPCS: 80307; 90471

== ENCOUNTER 2017-04-09 13:29 | Inpatient (IN) | payer MEDICARE, MEDICAID ==
[~2017-04-09] VITALS: Ht 167.6 cm; Wt 85.5 kg
[~2017-04-09 13:29] MED LIST changes: -HYDR-4031 PO; +MV-M1TAB2 PO; -QUET100T PO; +QUET300T2 PO; +TOPI100 PO; -TOPI25 PO
[2017-04-09 16:31] LABS: BASOPHILS % (AUTO) 0.4 % (0.0-2.0); EOSINOPHILS % (AUTO) 2.4 % (1.0-6.0); HEMATOCRIT 48.6 % (41-53); HEMOGLOBIN 16.3 g/dL (13.5-17.5); LYMPHOCYTES # (AUTO) 2.3 K/uL (1.0-4.8); LYMPHOCYTES % (AUTO) 25.8 % (22.0-44.0); MEAN CORPUSCULAR HEMOGLOBIN 29.8 pg (26.0-34.0); MEAN CORPUSCULAR HGB CONC 33.7 G/dL (31.0-37.0); MEAN CORPUSCULAR VOLUME 89 fL (80-100); MONOCYTES # (AUTO) 0.6 K/uL (0.1-1.0); MONOCYTES % (AUTO) 6.4 % (2.0-9.0); NEUTROPHILS # (AUTO) 5.7 K/uL (1.8-7.7); PLATELET COUNT (AUTO) 392 K/uL (150-450); RED BLOOD CELL COUNT(AUTO) 5.49 MIL/uL (4.50-5.90); RED CELL DISTRIBUTION WIDTH 14.2 % (11.5-14.5); WHITE BLOOD COUNT (AUTO) 8.7 K/uL (4.5-11.0)
[2017-04-09 16:38] LABS: ANION GAP 15 mmol/L (8-16); CALCIUM, TOTAL 8.9 mg/dL (8.8-10.5); CARBON DIOXIDE 22 mmol/L (22-29); CHLORIDE 104 mmol/L (98-107); CREATININE 1.28 mg/dL (0.60-1.30); GLOMERULAR FILTR. RATE CALC > 60 mL/min (>60); POTASSIUM 3.8 mmol/L (3.5-5.1); SODIUM SERUM 141 mmol/L (136-145); UREA NITROGEN, BLOOD 16 mg/dL (7-18)
[2017-04-09 16:57] LABS: ALBUMIN 4.2 g/dL (3.4-5.0); ASPARTATE AMINOTRANSFERASE 30 U/L (15-37); BILIRUBIN,TOTAL 0.3 mg/dL (0.1-1.0); TOTAL PROTEIN, SERUM 8.2 g/dL (6.4-8.2)
[2017-04-09 17:08] LABS: ALANINE AMINOTRANSFERASE 60 U/L (12-78)
[2017-04-09] MEDS ORDERED: LORazepam 2 MG TABLET PO PRN (17:45)
[2017-04-09] MEDS ORDERED: ZOLPIDEM TARTRATE 10 MG TABLET PO PRN (17:45)
[2017-04-09] MEDS ORDERED: QUEtiapine FUMARATE 100 MG TABLET PO PRN (17:45)
[2017-04-09 19:10] VITALS: BP 121/94
[2017-04-09] MEDS ORDERED: PNEUMOCOCCAL VACCINE POLYVALENT 0.5 ML VIAL [PPSV23] IM ONE (20:15)
[2017-04-09] MEDS ORDERED: QUEtiapine FUMARATE 200 MG TABLET PO SCH (21:00)
[2017-04-09] MEDS ORDERED: BENZTROPINE MESYLATE 0.5 MG TABLET PO ONE (21:15)
[2017-04-10 04:07] VITALS: BP 113/69
[2017-04-10 08:12] LABS: CHOL/HDL RATIO 4.7 (4.2-7.3)
[2017-04-10] MEDS ORDERED: CloNIDine HCL 0.1 MG TABLET PO PRN (08:15)
[2017-04-10] MEDS ORDERED: ACETAMINOPHEN 325 MG TABLET PO PRN (08:15)
[2017-04-10] MEDS ORDERED: LOPERAMIDE HCL 2 MG CAPSULE PO PRN (08:15)
[2017-04-10] MEDS ORDERED: IBUPROFEN 600 MG TABLET PO PRN (08:15)
[2017-04-10] MEDS ORDERED: MAG HYDROX/AL HYDROX/SIMETH ES 30 ML SUSPENSION UDCUP PO PRN (08:15)
[2017-04-10] MEDS ORDERED: BACITRACIN 28.4 GM OINTMENT TP PRN (08:15)
[2017-04-10] MEDS ORDERED: PETROLATUM,WHITE 71 GM JELLY TP PRN (08:15)
[2017-04-10] MEDS ORDERED: ALBUTEROL SULFATE HFA 90 MCG/PUFF 8 GM INHALER IH PRN (08:15)
[2017-04-10] MEDS ORDERED: BENZOCAINE/MENTHOL LOZENGE MM PRN (08:15)
[2017-04-10] MEDS ORDERED: ONDANSETRON HCL 4 MG TABLET PO PRN (08:15)
[2017-04-10] MEDS ORDERED: MAGNESIUM HYDROXIDE SUSPENSION 30 ML UDCUP PO PRN (08:15)
[2017-04-10 08:21] LABS: GLUCOSE, URINE (UA) NEGATIVE (NEGATIVE); KETONES,URINE NEGATIVE (NEGATIVE); LEUKOCYTE ESTERASE ,URINE NEGATIVE (NEGATIVE); OCCULT BLOOD,URINE NEGATIVE (NEGATIVE); PH,URINE 5.5 (5.0-8.0); PROTEIN,URINE NEGATIVE (NEGATIVE)
[2017-04-10 08:22] VITALS: BP 123/72
[2017-04-10 08:28] LABS: APPEARANCE,URINE CLEAR (CLEAR); RBC,URINE None Seen /HPF (0-2); WBC,URINE None Seen /HPF (0-5)
[2017-04-10] MEDS: MULTIVITAMINS WITH MINERALS, THERAPEUTIC TABLET PO SCH (08:28)
[2017-04-10] MEDS: OMEPRAZOLE 20 MG CAPSULE PO SCH (08:29)
[2017-04-10] MEDS: FISH OIL/OMEGA-3 FATTY ACIDS 500 MG CAPSULE PO SCH (08:29)
[2017-04-10] MEDS: DOCUSATE SODIUM 100 MG CAPSULE PO SCH (08:29)
[2017-04-10] MEDS ORDERED: BENZTROPINE MESYLATE 0.5 MG TABLET PO SCH ×2 (09:00)
[2017-04-10] MEDS ORDERED: LORATADINE 10 MG TABLET PO PRN (12:30)
[2017-04-10] MEDS: LORATADINE 10 MG TABLET PO PRN (14:43)
[2017-04-10] MEDS ORDERED: ROPINIRole HCL 0.25 MG TABLET PO SCH (16:00)
[2017-04-10 16:15] VITALS: BP 118/73
[2017-04-10] MEDS: MICONAZOLE NITRATE 2% 30 GM CREAM TP SCH (16:30)
[2017-04-10] MEDS: HydrOXYzine PAMOATE 25 MG CAPSULE PO SCH (18:37)
[2017-04-10] MEDS: SIMVASTATIN 10 MG TABLET PO SCH (20:36)
[2017-04-10] MEDS: BENZTROPINE MESYLATE 1 MG TABLET PO SCH (20:36)
[2017-04-10] MEDS: QUEtiapine FUMARATE 300 MG TABLET PO SCH (20:36)
[2017-04-11 01:47] VITALS: BP 109/61
[2017-04-11 08:42] VITALS: BP 111/69
[2017-04-11] MEDS: DOCUSATE SODIUM 100 MG CAPSULE PO SCH (09:17)
[2017-04-11] MEDS: MULTIVITAMINS WITH MINERALS, THERAPEUTIC TABLET PO SCH (09:17)
[2017-04-11] MEDS: FISH OIL/OMEGA-3 FATTY ACIDS 500 MG CAPSULE PO SCH (09:17)
[2017-04-11] MEDS: BENZTROPINE MESYLATE 1 MG TABLET PO SCH ×2 (09:17→20:32)
[2017-04-11] MEDS: OMEPRAZOLE 20 MG CAPSULE PO SCH (09:17)
[2017-04-11] MEDS: HydrOXYzine PAMOATE 25 MG CAPSULE PO SCH ×2 (09:17→16:34)
[2017-04-11] MEDS: MICONAZOLE NITRATE 2% 30 GM CREAM TP SCH ×2 (09:18→16:34)
[2017-04-11 16:06] VITALS: BP 114/74
[2017-04-11] MEDS: SIMVASTATIN 10 MG TABLET PO SCH (20:32)
[2017-04-11] MEDS: QUEtiapine FUMARATE 300 MG TABLET PO SCH (20:32)
[2017-04-12 00:03] VITALS: BP 106/64
[2017-04-12 08:00] VITALS: BP 108/71
[2017-04-12] MEDS: MICONAZOLE NITRATE 2% 30 GM CREAM TP SCH ×2 (09:00→16:40)
[2017-04-12] MEDS: FISH OIL/OMEGA-3 FATTY ACIDS 500 MG CAPSULE PO SCH (09:22)
[2017-04-12] MEDS: OMEPRAZOLE 20 MG CAPSULE PO SCH (09:22)
[2017-04-12] MEDS: DOCUSATE SODIUM 100 MG CAPSULE PO SCH (09:22)
[2017-04-12] MEDS: BENZTROPINE MESYLATE 1 MG TABLET PO SCH ×2 (09:22→20:36)
[2017-04-12] MEDS: MULTIVITAMINS WITH MINERALS, THERAPEUTIC TABLET PO SCH (09:22)
[2017-04-12] MEDS: HydrOXYzine PAMOATE 25 MG CAPSULE PO SCH ×2 (09:22→16:40)
[2017-04-12 16:00] VITALS: BP 115/67
[2017-04-12] MEDS: SIMVASTATIN 10 MG TABLET PO SCH (20:36)
[2017-04-12] MEDS: QUEtiapine FUMARATE 300 MG TABLET PO SCH (20:36)
[2017-04-13 00:59] VITALS: BP 122/81
[2017-04-13 08:06] VITALS: BP 105/70
[2017-04-13] MEDS: DOCUSATE SODIUM 100 MG CAPSULE PO SCH (08:46)
[2017-04-13] MEDS: BENZTROPINE MESYLATE 1 MG TABLET PO SCH ×2 (08:46→20:17)
[2017-04-13] MEDS: MULTIVITAMINS WITH MINERALS, THERAPEUTIC TABLET PO SCH (08:46)
[2017-04-13] MEDS: HydrOXYzine PAMOATE 25 MG CAPSULE PO SCH ×2 (08:46→16:13)
[2017-04-13] MEDS: FISH OIL/OMEGA-3 FATTY ACIDS 500 MG CAPSULE PO SCH (08:46)
[2017-04-13] MEDS: OMEPRAZOLE 20 MG CAPSULE PO SCH (08:46)
[2017-04-13] MEDS: MICONAZOLE NITRATE 2% 30 GM CREAM TP SCH ×2 (08:47→16:13)
[2017-04-13 16:10] VITALS: BP 112/72
[2017-04-13] MEDS: ROPINIRole HCL 1 MG TABLET PO SCH (20:17)
[2017-04-13] MEDS: SIMVASTATIN 10 MG TABLET PO SCH (20:17)
[2017-04-13] MEDS: QUEtiapine FUMARATE 300 MG TABLET PO SCH (20:17)
[2017-04-14 01:08] VITALS: BP 110/62
[2017-04-14 08:25] VITALS: BP 114/73
[2017-04-14] MEDS: DOCUSATE SODIUM 100 MG CAPSULE PO SCH (08:51)
[2017-04-14] MEDS: FISH OIL/OMEGA-3 FATTY ACIDS 500 MG CAPSULE PO SCH (08:51)
[2017-04-14] MEDS: BENZTROPINE MESYLATE 1 MG TABLET PO SCH ×2 (08:51→20:35)
[2017-04-14] MEDS: OMEPRAZOLE 20 MG CAPSULE PO SCH (08:51)
[2017-04-14] MEDS: MULTIVITAMINS WITH MINERALS, THERAPEUTIC TABLET PO SCH (08:51)
[2017-04-14] MEDS: HydrOXYzine PAMOATE 25 MG CAPSULE PO SCH ×2 (08:51→16:41)
[2017-04-14] MEDS: MICONAZOLE NITRATE 2% 30 GM CREAM TP SCH ×2 (08:53→16:42)
[2017-04-14] MEDS ORDERED: OMEG-116 PO (10:49)
[2017-04-14] MEDS ORDERED: QUET300T18 PO (10:49)
[2017-04-14] MEDS ORDERED: ROPI1TAB38 PO (10:49)
[2017-04-14] MEDS ORDERED: HYD25 PO (10:49)
[2017-04-14] MEDS ORDERED: NALT50 PO (10:49)
[2017-04-14] MEDS ORDERED: BENZ1TAB10 PO (10:49)
[2017-04-14 16:10] VITALS: BP 113/68
[2017-04-14] MEDS: LORATADINE 10 MG TABLET PO PRN (18:40)
[2017-04-14] MEDS: SIMVASTATIN 10 MG TABLET PO SCH (20:35)
[2017-04-14] MEDS: QUEtiapine FUMARATE 300 MG TABLET PO SCH (20:35)
[2017-04-14] MEDS: ROPINIRole HCL 1 MG TABLET PO SCH (20:35)
[2017-04-15 00:01] VITALS: BP 122/73
[2017-04-15] MEDS ORDERED: SIMV-259 PO (08:07)
[2017-04-15] MEDS: HydrOXYzine PAMOATE 25 MG CAPSULE PO SCH (08:07)
[2017-04-15] MEDS ORDERED: HYD25 PO (08:07)
[2017-04-15] MEDS ORDERED: ROPI1TAB11 PO (08:07)
[2017-04-15] MEDS ORDERED: NALT50 PO (08:07)
[2017-04-15] MEDS: MULTIVITAMINS WITH MINERALS, THERAPEUTIC TABLET PO SCH (08:07)
[2017-04-15] MEDS: DOCUSATE SODIUM 100 MG CAPSULE PO SCH (08:07)
[2017-04-15] MEDS ORDERED: LORA10TA7 PO (08:07)
[2017-04-15] MEDS: OMEPRAZOLE 20 MG CAPSULE PO SCH (08:07)
[2017-04-15] MEDS: BENZTROPINE MESYLATE 1 MG TABLET PO SCH (08:07)
[2017-04-15] MEDS: FISH OIL/OMEGA-3 FATTY ACIDS 500 MG CAPSULE PO SCH (08:07)
[2017-04-15] MEDS: MICONAZOLE NITRATE 2% 30 GM CREAM TP SCH (08:08)
[2017-04-15 08:25] VITALS: BP 109/76
[2017-04-15] MEDS ORDERED: NALTREXONE HCL 50 MG TABLET PO SCH (09:00)
== END 2017-04-15 09:35 | disposition home or self-care (01) | DRG 885 ==
LOC: EMS 13:33 → B2S 17:22 → B2X 19:02
PROVIDERS: ADMIT Psychiatry & Neurology Psychiatry; ATTEND Psychiatry & Neurology Psychiatry
DX: F31.63 Bipolar disorder, current episode mixed, severe, without psychotic features (principal); R45.851 Suicidal ideations; F41.9 Anxiety disorder, unspecified; K21.9 Gastro-esophageal reflux disease without esophagitis; J44.9 Chronic obstructive pulmonary disease, unspecified; Z72.0 Tobacco use; F15.10 Other stimulant abuse, uncomplicated; G47.00 Insomnia, unspecified; E78.5 Hyperlipidemia, unspecified; K59.00 Constipation, unspecified; G25.81 Restless legs syndrome; B35.6 Tinea cruris
CPT/HCPCS: 87081; 99285; G0480

== ENCOUNTER 2017-07-18 21:11 | Inpatient (IN) | payer MEDICARE, MEDICAID ==
[~2017-07-18] VITALS: Ht 165.1 cm; Wt 85.3 kg
[~2017-07-18 21:11] MED LIST changes: -DOCU250C91 PO; +HYD25 PO; -MV-M1TAB2 PO; +NALT50TA6 PO; +OMEG-116 PO; -OMEG-12 PO; -OMEP20 PO; +QUET200T29 PO; -QUET300T2 PO; +ROPI1TAB38 PO; -TOPI100 PO
[2017-07-18 22:02] LABS: BASOPHILS # (AUTO) 0.01 K/uL (0.00-0.20); BASOPHILS % (AUTO) 0.1 % (0.0-2.0); EOSINOPHILS # (AUTO) 0.44 K/uL (0.00-0.70); EOSINOPHILS % (AUTO) 3.89 % (1.0-6.0); HEMATOCRIT 46.7 % (41-53); HEMOGLOBIN 15.7 g/dL (13.5-17.5); LYMPHOCYTES # (AUTO) 2.9 K/uL (1.0-4.8); MEAN CORPUSCULAR HEMOGLOBIN 29.8 pg (26.0-34.0); MEAN CORPUSCULAR HGB CONC 33.6 G/dL (31.0-37.0); MEAN CORPUSCULAR VOLUME 89 fL (80-100); MONOCYTES # (AUTO) 0.9 K/uL (0.1-1.0); PLATELET COUNT (AUTO) 337 K/uL (150-450); RED BLOOD CELL COUNT(AUTO) 5.28 MIL/uL (4.50-5.90); RED CELL DISTRIBUTION WIDTH 14.3 % (11.5-14.5); WHITE BLOOD COUNT (AUTO) 11.2 K/uL (4.5-11.0)
[2017-07-18 22:13] LABS: CARBON DIOXIDE 29 mmol/L (22-29); CHLORIDE 104 mmol/L (98-107); POTASSIUM 4.2 mmol/L (3.5-5.1); SODIUM SERUM 139 mmol/L (136-145)
[2017-07-18 22:14] LABS: ANION GAP 6 mmol/L (8-16); CREATININE 1.02 mg/dL (0.60-1.30); GLOMERULAR FILTR. RATE CALC > 60 mL/min (>60); UREA NITROGEN, BLOOD 20 mg/dL (7-18)
[2017-07-18 22:21] LABS: ALANINE AMINOTRANSFERASE 67 U/L (12-78); ALBUMIN 3.8 g/dL (3.4-5.0); ASPARTATE AMINOTRANSFERASE 40 U/L (15-37); BILIRUBIN,TOTAL 0.3 mg/dL (0.1-1.0); TOTAL PROTEIN, SERUM 7.7 g/dL (6.4-8.2)
[2017-07-18] MEDS ORDERED: LORazepam 2 MG TABLET PO ONE (22:45)
[2017-07-19 01:14] LABS: APPEARANCE,URINE CLEAR (CLEAR); GLUCOSE, URINE (UA) NEGATIVE (NEGATIVE); KETONES,URINE NEGATIVE (NEGATIVE); LEUKOCYTE ESTERASE ,URINE NEGATIVE (NEGATIVE); OCCULT BLOOD,URINE NEGATIVE (NEGATIVE); PROTEIN,URINE NEGATIVE (NEGATIVE)
[2017-07-19 01:15] LABS: ADD UA MICROSCOPIC NO
[2017-07-19 01:16] LABS: CHOL/HDL RATIO 4.5 (4.2-7.3)
[2017-07-19 02:01] VITALS: BP 113/68
[2017-07-19] MEDS ORDERED: INFLUENZA VIRUS VACCINE QVS 2017-18 (3YR+)/PF 60 MCG/0.5 ML SYRINGE IM ONE (05:15)
[2017-07-19 08:41] VITALS: BP 107/61
[2017-07-19 16:48] VITALS: BP 113/77
[2017-07-20 08:33] VITALS: BP 109/62
[2017-07-20] MEDS: OMEGA-3/DHA/EPA/FISH OIL 500 MG CAPSULE PO SCH (09:12)
[2017-07-20] MEDS: VITAMIN E 400 UNITS CAPSULE PO SCH (09:12)
[2017-07-20] MEDS: QUEtiapine FUMARATE 100 MG TABLET PO PRN (09:30)
[2017-07-20] MEDS: LORazepam 2 MG TABLET PO PRN (09:30)
[2017-07-20 16:00] VITALS: BP 112/70
[2017-07-20] MEDS: QUEtiapine FUMARATE 200 MG TABLET PO SCH (20:55)
[2017-07-20] MEDS: BENZTROPINE MESYLATE 1 MG TABLET PO SCH (20:55)
[2017-07-21 08:04] VITALS: BP 104/65
[2017-07-21] MEDS: QUEtiapine FUMARATE 100 MG TABLET PO PRN (09:12)
[2017-07-21] MEDS: VITAMIN E 400 UNITS CAPSULE PO SCH (09:12)
[2017-07-21] MEDS: LORazepam 2 MG TABLET PO PRN ×2 (09:12→20:35)
[2017-07-21] MEDS: OMEGA-3/DHA/EPA/FISH OIL 500 MG CAPSULE PO SCH (09:12)
[2017-07-21 16:25] VITALS: BP 124/80
[2017-07-21] MEDS: QUEtiapine FUMARATE 200 MG TABLET PO SCH (20:35)
[2017-07-21] MEDS: BENZTROPINE MESYLATE 1 MG TABLET PO SCH (20:35)
[2017-07-21] MEDS: ZOLPIDEM TARTRATE 10 MG TABLET PO PRN (22:25)
[2017-07-22 08:11] VITALS: BP 102/61
[2017-07-22] MEDS: VITAMIN E 400 UNITS CAPSULE PO SCH (09:04)
[2017-07-22] MEDS: OMEGA-3/DHA/EPA/FISH OIL 500 MG CAPSULE PO SCH (09:04)
[2017-07-22 16:02] VITALS: BP 116/87
[2017-07-22] MEDS: QUEtiapine FUMARATE 200 MG TABLET PO SCH (20:26)
[2017-07-22] MEDS: BENZTROPINE MESYLATE 1 MG TABLET PO SCH (20:26)
[2017-07-22] MEDS: ZOLPIDEM TARTRATE 10 MG TABLET PO PRN (22:14)
[2017-07-23 07:22] VITALS: BP 118/69
[2017-07-23 08:39] VITALS: BP 114/62
[2017-07-23] MEDS: OMEGA-3/DHA/EPA/FISH OIL 500 MG CAPSULE PO SCH (09:38)
[2017-07-23] MEDS: LORazepam 2 MG TABLET PO PRN ×2 (09:38→20:25)
[2017-07-23] MEDS: VITAMIN E 400 UNITS CAPSULE PO SCH (09:38)
[2017-07-23 16:00] VITALS: BP 121/68
[2017-07-23] MEDS: BENZTROPINE MESYLATE 1 MG TABLET PO SCH (20:25)
[2017-07-23] MEDS: QUEtiapine FUMARATE 200 MG TABLET PO SCH (20:25)
[2017-07-23] MEDS: ZOLPIDEM TARTRATE 10 MG TABLET PO PRN (21:37)
[2017-07-24 06:13] VITALS: BP 133/72
[2017-07-24 08:00] VITALS: BP 117/72
[2017-07-24] MEDS: VITAMIN E 400 UNITS CAPSULE PO SCH (08:54)
[2017-07-24] MEDS: OMEGA-3/DHA/EPA/FISH OIL 500 MG CAPSULE PO SCH (08:54)
[2017-07-24] MEDS: HydrOXYzine PAMOATE 25 MG CAPSULE PO SCH ×3 (08:54→16:12)
[2017-07-24] MEDS: LORazepam 2 MG TABLET PO PRN (08:55)
[2017-07-24 16:40] VITALS: BP 120/81
[2017-07-24] MEDS: QUEtiapine FUMARATE 200 MG TABLET PO SCH ×2 (19:56→20:02)
[2017-07-24] MEDS: BENZTROPINE MESYLATE 1 MG TABLET PO SCH ×2 (19:56→20:02)
[2017-07-24] MEDS: ZOLPIDEM TARTRATE 10 MG TABLET PO PRN (22:30)
[2017-07-25 09:09] VITALS: BP 129/83
[2017-07-25] MEDS: HydrOXYzine PAMOATE 25 MG CAPSULE PO SCH ×3 (09:46→16:16)
[2017-07-25] MEDS: OMEGA-3/DHA/EPA/FISH OIL 500 MG CAPSULE PO SCH (09:46)
[2017-07-25] MEDS: VITAMIN E 400 UNITS CAPSULE PO SCH (09:46)
[2017-07-25 16:10] VITALS: BP 120/78
[2017-07-25] MEDS: QUEtiapine FUMARATE 200 MG TABLET PO SCH (20:22)
[2017-07-25] MEDS: BENZTROPINE MESYLATE 1 MG TABLET PO SCH (20:22)
[2017-07-26 01:29] VITALS: BP 122/89
[2017-07-26 08:09] LABS: BASOPHILS % (AUTO) 0.2 % (0.0-2.0); EOSINOPHILS % (AUTO) 5.5 % (1.0-6.0); HEMATOCRIT 47.1 % (41-53); HEMOGLOBIN 15.9 g/dL (13.5-17.5); LYMPHOCYTES # (AUTO) 3.1 K/uL (1.0-4.8); LYMPHOCYTES % (AUTO) 37.3 % (22.0-44.0); MEAN CORPUSCULAR HEMOGLOBIN 29.8 pg (26.0-34.0); MEAN CORPUSCULAR HGB CONC 33.8 G/dL (31.0-37.0); MEAN CORPUSCULAR VOLUME 88 fL (80-100); MONOCYTES # (AUTO) 0.8 K/uL (0.1-1.0); MONOCYTES % (AUTO) 9.6 % (2.0-9.0); NEUTROPHILS % (AUTO) 47.4 % (40.0-70.0); PLATELET COUNT (AUTO) 336 K/uL (150-450); RED BLOOD CELL COUNT(AUTO) 5.34 MIL/uL (4.50-5.90); RED CELL DISTRIBUTION WIDTH 14.2 % (11.5-14.5); WHITE BLOOD COUNT (AUTO) 8.4 K/uL (4.5-11.0)
[2017-07-26] MEDS: OMEGA-3/DHA/EPA/FISH OIL 500 MG CAPSULE PO SCH (08:27)
[2017-07-26] MEDS: VITAMIN E 400 UNITS CAPSULE PO SCH (08:28)
[2017-07-26] MEDS: HydrOXYzine PAMOATE 25 MG CAPSULE PO SCH ×3 (08:28→17:12)
[2017-07-26] MEDS: GABAPENTIN 300 MG CAPSULE PO SCH ×3 (08:28→17:12)
[2017-07-26 08:54] LABS: ALANINE AMINOTRANSFERASE 68 U/L (12-78); ALBUMIN 3.6 g/dL (3.4-5.0); ANION GAP 5 mmol/L (8-16); ASPARTATE AMINOTRANSFERASE 44 U/L (15-37); BILIRUBIN,TOTAL 0.5 mg/dL (0.1-1.0); CALCIUM, TOTAL 9.1 mg/dL (8.8-10.5); CARBON DIOXIDE 31 mmol/L (22-29); CHLORIDE 105 mmol/L (98-107); CREATINE KINASE MB 2.1 ng/mL (0-5); CREATINE KINASE, TOTAL 201 U/L (39-308); CREATININE 1.04 mg/dL (0.60-1.30); GLOMERULAR FILTR. RATE CALC > 60 mL/min (>60); POTASSIUM 4.3 mmol/L (3.5-5.1); SODIUM SERUM 141 mmol/L (136-145); TOTAL PROTEIN, SERUM 7.5 g/dL (6.4-8.2); UREA NITROGEN, BLOOD 22 mg/dL (7-18)
[2017-07-26] MEDS ORDERED: GABAPENTIN 400 MG CAPSULE PO SCH (09:00)
[2017-07-26 09:10] VITALS: BP 128/84
[2017-07-26 16:58] VITALS: BP 133/85
[2017-07-26] MEDS: DOCUSATE SODIUM 100 MG CAPSULE PO SCH (17:12)
[2017-07-26] MEDS: BENZTROPINE MESYLATE 1 MG TABLET PO SCH (20:30)
[2017-07-26] MEDS: QUEtiapine FUMARATE 200 MG TABLET PO SCH (20:30)
[2017-07-26] MEDS: GEMFIBROZIL 600 MG TABLET PO SCH (20:30)
[2017-07-27 09:09] VITALS: BP 104/59
[2017-07-27] MEDS: DOCUSATE SODIUM 100 MG CAPSULE PO SCH ×2 (09:27→17:02)
[2017-07-27] MEDS: GABAPENTIN 400 MG CAPSULE PO SCH ×3 (09:27→17:02)
[2017-07-27] MEDS: HydrOXYzine PAMOATE 25 MG CAPSULE PO SCH ×3 (09:27→17:02)
[2017-07-27] MEDS: VITAMIN E 400 UNITS CAPSULE PO SCH (09:27)
[2017-07-27] MEDS: MULTIVITAMINS, THERAPEUTIC TABLET PO SCH (09:28)
[2017-07-27] MEDS: OMEGA-3/DHA/EPA/FISH OIL 500 MG CAPSULE PO SCH (09:28)
[2017-07-27 16:59] VITALS: BP 113/72
[2017-07-27] MEDS: BENZTROPINE MESYLATE 1 MG TABLET PO SCH (20:50)
[2017-07-27] MEDS: GEMFIBROZIL 600 MG TABLET PO SCH (20:50)
[2017-07-27] MEDS: QUEtiapine FUMARATE 200 MG TABLET PO SCH (20:50)
[2017-07-28 01:33] VITALS: BP 119/81
[2017-07-28 08:32] VITALS: BP 124/80
[2017-07-28] MEDS ORDERED: VITA400C19 PO (09:07)
[2017-07-28] MEDS ORDERED: MULT1CAP32 PO (09:07)
[2017-07-28] MEDS ORDERED: GEMF600T3 PO (09:07)
[2017-07-28] MEDS ORDERED: DSS100 PO (09:07)
[2017-07-28] MEDS ORDERED: HYDR-4031 PO (09:07)
[2017-07-28] MEDS ORDERED: GABA-533 PO (09:07)
[2017-07-28] MEDS: HydrOXYzine PAMOATE 25 MG CAPSULE PO SCH (09:48)
[2017-07-28] MEDS: MULTIVITAMINS, THERAPEUTIC TABLET PO SCH (09:48)
[2017-07-28] MEDS: VITAMIN E 400 UNITS CAPSULE PO SCH (09:48)
[2017-07-28] MEDS: DOCUSATE SODIUM 100 MG CAPSULE PO SCH (09:48)
[2017-07-28] MEDS: OMEGA-3/DHA/EPA/FISH OIL 500 MG CAPSULE PO SCH (09:48)
[2017-07-28] MEDS: GABAPENTIN 400 MG CAPSULE PO SCH (09:48)
== END 2017-07-28 10:00 | disposition home or self-care (01) | DRG 885 ==
LOC: EMS 21:13 → B3A 07-19 01:00 → B2S 07-24 10:18
PROVIDERS: ADMIT Psychiatry & Neurology Psychiatry; ATTEND Psychiatry & Neurology Psychiatry
DX: F31.63 Bipolar disorder, current episode mixed, severe, without psychotic features (principal); F70 Mild intellectual disabilities; R45.851 Suicidal ideations; F15.20 Other stimulant dependence, uncomplicated; F20.9 Schizophrenia, unspecified; F41.9 Anxiety disorder, unspecified; J44.9 Chronic obstructive pulmonary disease, unspecified; F10.20 Alcohol dependence, uncomplicated; F17.210 Nicotine dependence, cigarettes, uncomplicated; K59.09 Other constipation; K21.9 Gastro-esophageal reflux disease without esophagitis; E78.5 Hyperlipidemia, unspecified; F12.20 Cannabis dependence, uncomplicated; G25.81 Restless legs syndrome; E55.9 Vitamin D deficiency, unspecified; G47.00 Insomnia, unspecified; R79.89 Other specified abnormal findings of blood chemistry; D72.829 Elevated white blood cell count, unspecified; E66.9 Obesity, unspecified; Z91.030 Bee allergy status; Z91.018 Allergy to other foods; Z79.899 Other long term (current) drug therapy; Z68.31 Body mass index [BMI] 31.0-31.9, adult; Z59.0 Homelessness; Z91.14 Patient's other noncompliance with medication regimen; Z81.8 Family history of other mental and behavioral disorders; Z81.1 Family history of alcohol abuse and dependence; Z80.0 Family history of malignant neoplasm of digestive organs; Z28.21 Immunization not carried out because of patient refusal
CPT/HCPCS: 83735; 87081; 90471; 99285; G0480

== ENCOUNTER 2017-09-06 11:20 | Inpatient (IN) | payer MEDICARE, MEDICAID ==
[~2017-09-06] VITALS: Ht 167.6 cm; Wt 85.3 kg
[~2017-09-06 11:20] MED LIST changes: +DSS100 PO; +GABA-533 PO; +GEMF600T3 PO; -HYD25 PO; +HYDR-4031 PO; +MULT1CAP32 PO; -NALT50TA6 PO; -ROPI1TAB38 PO; +VITA400C19 PO
[2017-09-06 12:29] VITALS: BP 112/79
[2017-09-06] MEDS ORDERED: PNEUMOCOCCAL VACCINE POLYVALENT 0.5 ML VIAL [PPSV23] IM ONE (15:00)
[2017-09-06] MEDS ORDERED: BENZ1TAB10 PO (15:47)
[2017-09-06] MEDS ORDERED: QUET200T PO (15:47)
[2017-09-06] MEDS ORDERED: OMEG-135 PO (15:47)
[2017-09-06 16:00] VITALS: BP 100/64
[2017-09-06] MEDS: DOCUSATE SODIUM 100 MG CAPSULE PO SCH (16:18)
[2017-09-06] MEDS ORDERED: GABAPENTIN 400 MG CAPSULE PO SCH (17:00)
[2017-09-06] MEDS ORDERED: HydrOXYzine PAMOATE 25 MG CAPSULE PO SCH (17:00)
[2017-09-06] MEDS ORDERED: ChlorproMAZINE HCL 100 MG TABLET PO PRN (18:15)
[2017-09-06] MEDS ORDERED: HydrOXYzine PAMOATE 50 MG CAPSULE PO PRN (18:15)
[2017-09-06] MEDS: QUEtiapine FUMARATE 200 MG TABLET PO SCH (20:32)
[2017-09-06] MEDS: BENZTROPINE MESYLATE 1 MG TABLET PO SCH (20:32)
[2017-09-06] MEDS: GEMFIBROZIL 600 MG TABLET PO SCH (20:32)
[2017-09-07 06:05] VITALS: BP 107/68
[2017-09-07 08:36] LABS: BASOPHILS # (AUTO) 0.03 K/uL (0.00-0.20); BASOPHILS % (AUTO) 0.4 % (0.0-2.0); EOSINOPHILS # (AUTO) 0.53 K/uL (0.00-0.70); EOSINOPHILS % (AUTO) 6.81 % (1.0-6.0); HEMATOCRIT 48.4 % (41-53); HEMOGLOBIN 16.2 g/dL (13.5-17.5); LYMPHOCYTES # (AUTO) 2.5 K/uL (1.0-4.8); LYMPHOCYTES % (AUTO) 32.3 % (22.0-44.0); MEAN CORPUSCULAR HEMOGLOBIN 29.4 pg (26.0-34.0); MEAN CORPUSCULAR HGB CONC 33.4 G/dL (31.0-37.0); MEAN CORPUSCULAR VOLUME 88 fL (80-100); MONOCYTES # (AUTO) 0.9 K/uL (0.1-1.0); NEUTROPHILS # (AUTO) 3.9 K/uL (1.8-7.7); NEUTROPHILS % (AUTO) 49.5 % (40.0-70.0); PLATELET COUNT (AUTO) 363 K/uL (150-450); RED BLOOD CELL COUNT(AUTO) 5.51 MIL/uL (4.50-5.90); WHITE BLOOD COUNT (AUTO) 7.8 K/uL (4.5-11.0)
[2017-09-07 08:54] LABS: ALANINE AMINOTRANSFERASE 58 U/L (12-78); ALBUMIN 3.5 g/dL (3.4-5.0); ANION GAP 6 mmol/L (8-16); ASPARTATE AMINOTRANSFERASE 37 U/L (15-37); BILIRUBIN,TOTAL 0.3 mg/dL (0.1-1.0); CALCIUM, TOTAL 9.1 mg/dL (8.8-10.5); CARBON DIOXIDE 30 mmol/L (22-29); CHLORIDE 102 mmol/L (98-107); CHOL/HDL RATIO 5.9 (4.2-7.3); CREATININE 1.21 mg/dL (0.60-1.30); GLOMERULAR FILTR. RATE CALC > 60 mL/min (>60); HEMOGLOBIN A1C 5.6 % (4.5-6.2); POTASSIUM 5.2 mmol/L (3.5-5.1); SODIUM SERUM 138 mmol/L (136-145); THYROID STIMULATING HORMONE 1.56 uIU/mL (0.36-3.74); TOTAL PROTEIN, SERUM 7.1 g/dL (6.4-8.2); UREA NITROGEN, BLOOD 23 mg/dL (7-18)
[2017-09-07 09:19] LABS: APPEARANCE,URINE CLEAR (CLEAR); GLUCOSE, URINE (UA) NEGATIVE (NEGATIVE); KETONES,URINE NEGATIVE (NEGATIVE); LEUKOCYTE ESTERASE ,URINE NEGATIVE (NEGATIVE); OCCULT BLOOD,URINE NEGATIVE (NEGATIVE); PROTEIN,URINE NEGATIVE (NEGATIVE)
[2017-09-07 09:31] VITALS: BP 47/78
[2017-09-07] MEDS: GABAPENTIN 400 MG CAPSULE PO SCH ×3 (09:59→17:05)
[2017-09-07] MEDS: DOCUSATE SODIUM 100 MG CAPSULE PO SCH ×2 (09:59→17:05)
[2017-09-07] MEDS: VITAMIN E 400 UNITS CAPSULE PO SCH (09:59)
[2017-09-07] MEDS: HydrOXYzine PAMOATE 25 MG CAPSULE PO SCH ×2 (10:00→17:05)
[2017-09-07] MEDS: OMEGA-3/DHA/EPA/FISH OIL 1,000 MG CAPSULE PO SCH (10:00)
[2017-09-07] MEDS: MULTIVITAMINS WITH MINERALS, THERAPEUTIC TABLET PO SCH (10:00)
[2017-09-07 10:17] LABS: CALCIUM OXALATE CRYSTALS,UR Few /LPF (None Seen); RBC,URINE None Seen /HPF (0-2); SQUAMOUS EPITHELIAL CELL,UR Rare /LPF (None Seen); WBC,URINE 0-2 /HPF (0-5)
[2017-09-07 16:16] VITALS: BP 116/81
[2017-09-07] MEDS: QUEtiapine FUMARATE 200 MG TABLET PO SCH (20:37)
[2017-09-07] MEDS: BENZTROPINE MESYLATE 1 MG TABLET PO SCH (20:37)
[2017-09-07] MEDS: GEMFIBROZIL 600 MG TABLET PO SCH (20:37)
[2017-09-08 06:15] VITALS: BP 105/62
[2017-09-08 08:26] VITALS: BP 117/81
[2017-09-08] MEDS: DOCUSATE SODIUM 100 MG CAPSULE PO SCH ×2 (08:41→16:17)
[2017-09-08] MEDS: VITAMIN E 400 UNITS CAPSULE PO SCH (08:42)
[2017-09-08] MEDS: HydrOXYzine PAMOATE 25 MG CAPSULE PO SCH ×2 (08:42→16:17)
[2017-09-08] MEDS: GABAPENTIN 400 MG CAPSULE PO SCH ×3 (08:42→16:17)
[2017-09-08] MEDS: MULTIVITAMINS WITH MINERALS, THERAPEUTIC TABLET PO SCH (08:42)
[2017-09-08] MEDS: OMEGA-3/DHA/EPA/FISH OIL 1,000 MG CAPSULE PO SCH (08:42)
[2017-09-08] MEDS: MULTIVITAMINS, THERAPEUTIC TABLET PO SCH (10:14)
[2017-09-08 16:11] VITALS: BP 107/82
[2017-09-08] MEDS: QUEtiapine FUMARATE 200 MG TABLET PO SCH (20:37)
[2017-09-08] MEDS: GEMFIBROZIL 600 MG TABLET PO SCH (20:37)
[2017-09-08] MEDS: BENZTROPINE MESYLATE 1 MG TABLET PO SCH (20:37)
[2017-09-09 06:19] VITALS: BP 110/68
[2017-09-09] MEDS: OMEGA-3/DHA/EPA/FISH OIL 1,000 MG CAPSULE PO SCH (08:58)
[2017-09-09] MEDS: HydrOXYzine PAMOATE 25 MG CAPSULE PO SCH ×2 (08:58→16:12)
[2017-09-09] MEDS: VITAMIN E 400 UNITS CAPSULE PO SCH (08:58)
[2017-09-09] MEDS: GABAPENTIN 400 MG CAPSULE PO SCH ×3 (08:58→16:12)
[2017-09-09] MEDS: DOCUSATE SODIUM 100 MG CAPSULE PO SCH ×2 (08:58→16:12)
[2017-09-09] MEDS: MULTIVITAMINS, THERAPEUTIC TABLET PO SCH (09:00)
[2017-09-09 09:14] VITALS: BP 121/71
[2017-09-09 17:05] VITALS: BP 121/83
[2017-09-09] MEDS: QUEtiapine FUMARATE 200 MG TABLET PO SCH (20:32)
[2017-09-09] MEDS: BENZTROPINE MESYLATE 1 MG TABLET PO SCH (20:32)
[2017-09-09] MEDS: ROSUVASTATIN CALCIUM 10 MG TABLET PO SCH (21:00)
[2017-09-10 06:46] VITALS: BP 110/65
[2017-09-10] MEDS: VITAMIN E 400 UNITS CAPSULE PO SCH (08:24)
[2017-09-10] MEDS: HydrOXYzine PAMOATE 25 MG CAPSULE PO SCH ×2 (08:24→16:12)
[2017-09-10] MEDS: MULTIVITAMINS, THERAPEUTIC TABLET PO SCH (08:24)
[2017-09-10] MEDS: GABAPENTIN 400 MG CAPSULE PO SCH ×3 (08:24→16:12)
[2017-09-10] MEDS: DOCUSATE SODIUM 100 MG CAPSULE PO SCH ×2 (08:24→16:12)
[2017-09-10] MEDS: OMEGA-3/DHA/EPA/FISH OIL 1,000 MG CAPSULE PO SCH (08:24)
[2017-09-10 09:17] VITALS: BP 116/77
[2017-09-10 17:43] VITALS: BP 120/68
[2017-09-10] MEDS: BENZTROPINE MESYLATE 1 MG TABLET PO SCH (20:09)
[2017-09-10] MEDS: ROSUVASTATIN CALCIUM 10 MG TABLET PO SCH (20:09)
[2017-09-10] MEDS: QUEtiapine FUMARATE 200 MG TABLET PO SCH (20:09)
[2017-09-11 06:32] VITALS: BP 103/62
[2017-09-11] MEDS: VITAMIN E 400 UNITS CAPSULE PO SCH (08:17)
[2017-09-11] MEDS: GABAPENTIN 400 MG CAPSULE PO SCH ×2 (08:17→12:11)
[2017-09-11] MEDS: OMEGA-3/DHA/EPA/FISH OIL 1,000 MG CAPSULE PO SCH (08:17)
[2017-09-11] MEDS: MULTIVITAMINS, THERAPEUTIC TABLET PO SCH (08:17)
[2017-09-11] MEDS: DOCUSATE SODIUM 100 MG CAPSULE PO SCH ×2 (08:17→16:31)
[2017-09-11] MEDS: HydrOXYzine PAMOATE 25 MG CAPSULE PO SCH ×2 (08:17→16:31)
[2017-09-11 08:58] VITALS: BP 111/68
[2017-09-11] MEDS: GABAPENTIN 300 MG CAPSULE PO SCH (16:31)
[2017-09-11 16:35] VITALS: BP 114/78
[2017-09-11] MEDS: QUEtiapine FUMARATE 200 MG TABLET PO SCH (20:07)
[2017-09-11] MEDS: BENZTROPINE MESYLATE 1 MG TABLET PO SCH (20:07)
[2017-09-11] MEDS: ROSUVASTATIN CALCIUM 10 MG TABLET PO SCH (20:07)
[2017-09-12 00:30] VITALS: BP 127/70
[2017-09-12 08:49] VITALS: BP 120/80
[2017-09-12] MEDS: DOCUSATE SODIUM 100 MG CAPSULE PO SCH ×2 (09:07→16:03)
[2017-09-12] MEDS: HydrOXYzine PAMOATE 25 MG CAPSULE PO SCH ×2 (09:07→16:04)
[2017-09-12] MEDS: VITAMIN E 400 UNITS CAPSULE PO SCH (09:07)
[2017-09-12] MEDS: OMEGA-3/DHA/EPA/FISH OIL 1,000 MG CAPSULE PO SCH (09:07)
[2017-09-12] MEDS: MULTIVITAMINS, THERAPEUTIC TABLET PO SCH (09:07)
[2017-09-12] MEDS: GABAPENTIN 300 MG CAPSULE PO SCH ×3 (09:07→16:03)
[2017-09-12 09:12] LABS: ALANINE AMINOTRANSFERASE 63 U/L (12-78); ALBUMIN 3.5 g/dL (3.4-5.0); ANION GAP 7 mmol/L (8-16); ASPARTATE AMINOTRANSFERASE 40 U/L (15-37); BILIRUBIN,TOTAL 0.4 mg/dL (0.1-1.0); CALCIUM, TOTAL 8.9 mg/dL (8.8-10.5); CARBON DIOXIDE 30 mmol/L (22-29); CHLORIDE 104 mmol/L (98-107); CREATINE KINASE MB 5.3 ng/mL (0-5); CREATINE KINASE, TOTAL 413 U/L (39-308); CREATININE 0.94 mg/dL (0.60-1.30); GLOMERULAR FILTR. RATE CALC > 60 mL/min (>60); POTASSIUM 4.1 mmol/L (3.5-5.1); SODIUM SERUM 141 mmol/L (136-145); TOTAL PROTEIN, SERUM 7.3 g/dL (6.4-8.2); UREA NITROGEN, BLOOD 16 mg/dL (7-18)
[2017-09-12 16:34] VITALS: BP 132/81
[2017-09-12] MEDS: ROSUVASTATIN CALCIUM 10 MG TABLET PO SCH (20:34)
[2017-09-12] MEDS: QUEtiapine FUMARATE 200 MG TABLET PO SCH (20:34)
[2017-09-12] MEDS: BENZTROPINE MESYLATE 1 MG TABLET PO SCH (20:34)
[2017-09-13 05:56] VITALS: BP 106/59
[2017-09-13 08:23] VITALS: BP 127/85
[2017-09-13] MEDS: OMEGA-3/DHA/EPA/FISH OIL 1,000 MG CAPSULE PO SCH (08:31)
[2017-09-13] MEDS: MULTIVITAMINS, THERAPEUTIC TABLET PO SCH (08:31)
[2017-09-13] MEDS: GABAPENTIN 300 MG CAPSULE PO SCH ×3 (08:31→16:51)
[2017-09-13] MEDS: DOCUSATE SODIUM 100 MG CAPSULE PO SCH ×2 (08:31→16:51)
[2017-09-13] MEDS: VITAMIN E 400 UNITS CAPSULE PO SCH (08:31)
[2017-09-13] MEDS: HydrOXYzine PAMOATE 25 MG CAPSULE PO SCH ×2 (08:31→16:51)
[2017-09-13 16:00] VITALS: BP 117/81
[2017-09-13] MEDS: BENZTROPINE MESYLATE 1 MG TABLET PO SCH (21:28)
[2017-09-13] MEDS: ROSUVASTATIN CALCIUM 10 MG TABLET PO SCH (21:29)
[2017-09-13] MEDS: QUEtiapine FUMARATE 200 MG TABLET PO SCH (21:29)
[2017-09-14] VITALS (8 sets, daily range): BP systolic 106–123; BP diastolic 60–89
[2017-09-14] MEDS: VITAMIN E 400 UNITS CAPSULE PO SCH (08:42)
[2017-09-14] MEDS: GABAPENTIN 300 MG CAPSULE PO SCH ×3 (08:42→16:06)
[2017-09-14] MEDS: OMEGA-3/DHA/EPA/FISH OIL 1,000 MG CAPSULE PO SCH (08:42)
[2017-09-14] MEDS: HydrOXYzine PAMOATE 25 MG CAPSULE PO SCH ×2 (08:42→16:06)
[2017-09-14] MEDS: DOCUSATE SODIUM 100 MG CAPSULE PO SCH ×2 (08:42→16:06)
[2017-09-14] MEDS: MULTIVITAMINS, THERAPEUTIC TABLET PO SCH (08:42)
[2017-09-14 09:31] LABS: CREATINE KINASE MB 1.8 ng/mL (0-5); CREATINE KINASE, TOTAL 216 U/L (39-308)
[2017-09-14] MEDS: BENZTROPINE MESYLATE 1 MG TABLET PO SCH (20:40)
[2017-09-14] MEDS: QUEtiapine FUMARATE 200 MG TABLET PO SCH (20:40)
[2017-09-14] MEDS: ROSUVASTATIN CALCIUM 10 MG TABLET PO SCH (20:40)
[2017-09-14] MEDS ORDERED: ACETAMINOPHEN 325 MG TABLET PO PRN (21:00)
[2017-09-14] MEDS ORDERED: IBUPROFEN 600 MG TABLET PO PRN (21:00)
[2017-09-15 00:01] VITALS: BP 100/66
[2017-09-15 00:55] VITALS: BP 100/66
[2017-09-15 01:00] VITALS: BP 104/68
[2017-09-15 08:00] VITALS: BP 143/86
[2017-09-15] MEDS: HydrOXYzine PAMOATE 25 MG CAPSULE PO SCH ×2 (09:14→16:03)
[2017-09-15] MEDS: VITAMIN E 400 UNITS CAPSULE PO SCH (09:14)
[2017-09-15] MEDS: OMEGA-3/DHA/EPA/FISH OIL 1,000 MG CAPSULE PO SCH (09:14)
[2017-09-15] MEDS: MULTIVITAMINS, THERAPEUTIC TABLET PO SCH (09:14)
[2017-09-15] MEDS: DOCUSATE SODIUM 100 MG CAPSULE PO SCH ×2 (09:15→16:03)
[2017-09-15] MEDS: GABAPENTIN 300 MG CAPSULE PO SCH ×3 (09:15→16:03)
[2017-09-15 16:00] VITALS: BP 126/83
[2017-09-15] MEDS: QUEtiapine FUMARATE 200 MG TABLET PO SCH (20:33)
[2017-09-15] MEDS: ROSUVASTATIN CALCIUM 10 MG TABLET PO SCH (20:33)
[2017-09-15] MEDS: BENZTROPINE MESYLATE 1 MG TABLET PO SCH (20:33)
[2017-09-16 01:22] VITALS: BP 100/64
[2017-09-16 08:50] VITALS: BP 111/50
[2017-09-16] MEDS: MULTIVITAMINS, THERAPEUTIC TABLET PO SCH (08:52)
[2017-09-16] MEDS: HydrOXYzine PAMOATE 25 MG CAPSULE PO SCH ×2 (08:52→16:02)
[2017-09-16] MEDS: DOCUSATE SODIUM 100 MG CAPSULE PO SCH ×2 (08:52→16:02)
[2017-09-16] MEDS: GABAPENTIN 300 MG CAPSULE PO SCH ×3 (08:52→16:02)
[2017-09-16] MEDS: VITAMIN E 400 UNITS CAPSULE PO SCH (08:52)
[2017-09-16] MEDS: OMEGA-3/DHA/EPA/FISH OIL 1,000 MG CAPSULE PO SCH (08:53)
[2017-09-16 09:53] VITALS: BP 122/84
[2017-09-16 16:00] VITALS: BP 118/83
[2017-09-16] MEDS: ROSUVASTATIN CALCIUM 10 MG TABLET PO SCH (20:52)
[2017-09-16] MEDS: BENZTROPINE MESYLATE 1 MG TABLET PO SCH (20:52)
[2017-09-16] MEDS: QUEtiapine FUMARATE 200 MG TABLET PO SCH (20:52)
[2017-09-17 00:44] VITALS: BP 106/67
[2017-09-17 08:43] VITALS: BP 114/68
[2017-09-17] MEDS: VITAMIN E 400 UNITS CAPSULE PO SCH (09:24)
[2017-09-17] MEDS: OMEGA-3/DHA/EPA/FISH OIL 1,000 MG CAPSULE PO SCH (09:25)
[2017-09-17] MEDS: GABAPENTIN 300 MG CAPSULE PO SCH ×3 (09:25→16:07)
[2017-09-17] MEDS: DOCUSATE SODIUM 100 MG CAPSULE PO SCH ×2 (09:25→16:07)
[2017-09-17] MEDS: HydrOXYzine PAMOATE 25 MG CAPSULE PO SCH ×2 (09:25→16:07)
[2017-09-17] MEDS: MULTIVITAMINS, THERAPEUTIC TABLET PO SCH (09:25)
[2017-09-17 16:00] VITALS: BP 124/90
[2017-09-17] MEDS: QUEtiapine FUMARATE 200 MG TABLET PO SCH (20:01)
[2017-09-17] MEDS: ROSUVASTATIN CALCIUM 10 MG TABLET PO SCH (20:01)
[2017-09-17] MEDS: BENZTROPINE MESYLATE 1 MG TABLET PO SCH (20:01)
[2017-09-18 01:15] VITALS: BP 110/70
[2017-09-18 09:03] VITALS: BP 113/64
[2017-09-18] MEDS: GABAPENTIN 300 MG CAPSULE PO SCH ×3 (09:17→16:10)
[2017-09-18] MEDS: HydrOXYzine PAMOATE 25 MG CAPSULE PO SCH ×2 (09:17→16:10)
[2017-09-18] MEDS: VITAMIN E 400 UNITS CAPSULE PO SCH (09:17)
[2017-09-18] MEDS: OMEGA-3/DHA/EPA/FISH OIL 1,000 MG CAPSULE PO SCH (09:17)
[2017-09-18] MEDS: MULTIVITAMINS, THERAPEUTIC TABLET PO SCH (09:17)
[2017-09-18] MEDS: DOCUSATE SODIUM 100 MG CAPSULE PO SCH ×2 (09:17→16:10)
[2017-09-18 10:22] VITALS: BP 113/64
[2017-09-18 17:28] VITALS: BP 127/90
[2017-09-18] MEDS: QUEtiapine FUMARATE 200 MG TABLET PO SCH (20:27)
[2017-09-18] MEDS: ROSUVASTATIN CALCIUM 10 MG TABLET PO SCH (20:27)
[2017-09-18] MEDS: BENZTROPINE MESYLATE 1 MG TABLET PO SCH (20:27)
[2017-09-18] MEDS: ZOLPIDEM TARTRATE 10 MG TABLET PO PRN (22:10)
[2017-09-19 06:34] VITALS: BP 130/71
[2017-09-19] MEDS: VITAMIN E 400 UNITS CAPSULE PO SCH (08:41)
[2017-09-19] MEDS: HydrOXYzine PAMOATE 25 MG CAPSULE PO SCH ×2 (08:41→16:08)
[2017-09-19] MEDS: GABAPENTIN 300 MG CAPSULE PO SCH ×3 (08:41→16:08)
[2017-09-19] MEDS: OMEGA-3/DHA/EPA/FISH OIL 1,000 MG CAPSULE PO SCH (08:41)
[2017-09-19] MEDS: MULTIVITAMINS, THERAPEUTIC TABLET PO SCH (08:41)
[2017-09-19] MEDS: DOCUSATE SODIUM 100 MG CAPSULE PO SCH ×2 (08:42→16:08)
[2017-09-19 10:14] VITALS: BP 123/81
[2017-09-19 14:12] VITALS: BP 123/81
[2017-09-19 16:19] VITALS: BP 122/77
[2017-09-19] MEDS: ROSUVASTATIN CALCIUM 10 MG TABLET PO SCH (20:35)
[2017-09-19] MEDS: BENZTROPINE MESYLATE 1 MG TABLET PO SCH (20:35)
[2017-09-19] MEDS: QUEtiapine FUMARATE 200 MG TABLET PO SCH (20:35)
[2017-09-20 00:30] VITALS: BP 107/80
[2017-09-20 07:20] VITALS: BP 128/78
[2017-09-20 08:55] VITALS: BP 114/85
[2017-09-20] MEDS: GABAPENTIN 300 MG CAPSULE PO SCH ×3 (09:16→16:21)
[2017-09-20] MEDS: DOCUSATE SODIUM 100 MG CAPSULE PO SCH ×2 (09:16→16:21)
[2017-09-20] MEDS: OMEGA-3/DHA/EPA/FISH OIL 1,000 MG CAPSULE PO SCH (09:16)
[2017-09-20] MEDS: HydrOXYzine PAMOATE 25 MG CAPSULE PO SCH ×2 (09:16→16:21)
[2017-09-20] MEDS: MULTIVITAMINS, THERAPEUTIC TABLET PO SCH (09:16)
[2017-09-20] MEDS: VITAMIN E 400 UNITS CAPSULE PO SCH (09:17)
[2017-09-20 16:30] VITALS: BP 126/87
[2017-09-20] MEDS: BENZTROPINE MESYLATE 1 MG TABLET PO SCH (20:17)
[2017-09-20] MEDS: QUEtiapine FUMARATE 200 MG TABLET PO SCH (20:17)
[2017-09-20] MEDS: ROSUVASTATIN CALCIUM 10 MG TABLET PO SCH (20:17)
[2017-09-20] MEDS: ZOLPIDEM TARTRATE 10 MG TABLET PO PRN (20:56)
[2017-09-21 00:45] VITALS: BP 110/73
[2017-09-21] MEDS ORDERED: ROSU10 PO (08:08)
[2017-09-21] MEDS: GABAPENTIN 300 MG CAPSULE PO SCH ×2 (08:14→12:47)
[2017-09-21] MEDS: HydrOXYzine PAMOATE 25 MG CAPSULE PO SCH (08:14)
[2017-09-21] MEDS: OMEGA-3/DHA/EPA/FISH OIL 1,000 MG CAPSULE PO SCH (08:14)
[2017-09-21] MEDS: MULTIVITAMINS, THERAPEUTIC TABLET PO SCH (08:14)
[2017-09-21] MEDS: DOCUSATE SODIUM 100 MG CAPSULE PO SCH (08:14)
[2017-09-21] MEDS: VITAMIN E 400 UNITS CAPSULE PO SCH (08:15)
[2017-09-21 08:53] VITALS: BP 128/91
== END 2017-09-21 13:00 | DRG 885 ==
LOC: B2S 13:44
PROVIDERS: ADMIT Psychiatry & Neurology Psychiatry; ATTEND Psychiatry & Neurology Psychiatry
DX: F31.63 Bipolar disorder, current episode mixed, severe, without psychotic features (principal); R45.851 Suicidal ideations; E87.5 Hyperkalemia; M62.82 Rhabdomyolysis; E78.5 Hyperlipidemia, unspecified; R79.89 Other specified abnormal findings of blood chemistry; X58.XXXA Exposure to other specified factors, initial encounter; Z28.21 Immunization not carried out because of patient refusal; Z56.0 Unemployment, unspecified; J44.9 Chronic obstructive pulmonary disease, unspecified; K21.9 Gastro-esophageal reflux disease without esophagitis; K59.09 Other constipation; E66.9 Obesity, unspecified; F12.90 Cannabis use, unspecified, uncomplicated; F41.9 Anxiety disorder, unspecified; F17.200 Nicotine dependence, unspecified, uncomplicated; G25.81 Restless legs syndrome; G47.00 Insomnia, unspecified; S80.01XA Contusion of right knee, initial encounter; Z80.0 Family history of malignant neoplasm of digestive organs; Z91.14 Patient's other noncompliance with medication regimen; Z91.19 Patient's noncompliance with other medical treatment and regimen; Z79.899 Other long term (current) drug therapy; Y93.89 Activity, other specified; Y92.89 Other specified places as the place of occurrence of the external cause; Y99.8 Other external cause status
CPT/HCPCS: 80307; 83036; 83735; 84439; 84443; 87081

== ENCOUNTER 2017-12-13 22:56 | Inpatient (IN) | payer MEDICARE, MEDICAID ==
[~2017-12-13] VITALS: Ht 167.6 cm; Wt 83.6 kg
[~2017-12-13 22:56] MED LIST changes: -GEMF600T3 PO; -OMEG-116 PO; +OMEG-135 PO; +OMEP20 PO; +QUET200T PO; -QUET200T29 PO; +ROSU10 PO
[2017-12-13] MEDS ORDERED: HydrOXYzine PAMOATE 25 MG CAPSULE PO PRN (23:15)
[2017-12-13] MEDS ORDERED: ZOLPIDEM TARTRATE 10 MG TABLET PO PRN (23:15)
[2017-12-13] MEDS ORDERED: QUEtiapine FUMARATE 100 MG TABLET PO PRN (23:15)
[2017-12-13 23:40] VITALS: BP 112/77
[2017-12-13] MEDS ORDERED: PNEUMOCOCCAL VACCINE POLYVALENT 0.5 ML VIAL [PPSV23] IM ONE (23:45)
[2017-12-14 00:40] VITALS: BP 130/70
[2017-12-14 08:31] LABS: BASOPHILS % (AUTO) 0.2 % (0.0-2.0); EOSINOPHILS % (AUTO) 4.7 % (1.0-6.0); HEMATOCRIT 44.8 % (41-53); HEMOGLOBIN 15.1 g/dL (13.5-17.5); LYMPHOCYTES # (AUTO) 3.6 K/uL (1.0-4.8); LYMPHOCYTES % (AUTO) 31.9 % (22.0-44.0); MEAN CORPUSCULAR HEMOGLOBIN 29.4 pg (26.0-34.0); MEAN CORPUSCULAR HGB CONC 33.8 G/dL (31.0-37.0); MEAN CORPUSCULAR VOLUME 87 fL (80-100); MONOCYTES # (AUTO) 1.2 K/uL (0.1-1.0); MONOCYTES % (AUTO) 10.3 % (2.0-9.0); NEUTROPHILS % (AUTO) 52.9 % (40.0-70.0); PLATELET COUNT (AUTO) 323 K/uL (150-450); RED BLOOD CELL COUNT(AUTO) 5.14 MIL/uL (4.50-5.90); RED CELL DISTRIBUTION WIDTH 13.8 % (11.5-14.5)
[2017-12-14 08:35] VITALS: BP 120/78
[2017-12-14] MEDS: HydrOXYzine PAMOATE 25 MG CAPSULE PO SCH ×3 (08:42→16:37)
[2017-12-14 08:43] LABS: HEMOGLOBIN A1C 5.6 % (4.5-6.2)
[2017-12-14] MEDS: BENZTROPINE MESYLATE 1 MG TABLET PO SCH ×2 (08:43→20:34)
[2017-12-14] MEDS: GABAPENTIN 300 MG CAPSULE PO SCH ×3 (08:43→16:37)
[2017-12-14 09:15] LABS: ALANINE AMINOTRANSFERASE 59 U/L (12-78); ALBUMIN 3.5 g/dL (3.4-5.0); ALKALINE PHOSPHATASE 85 U/L (46-116); ANION GAP 7 mmol/L (8-16); ASPARTATE AMINOTRANSFERASE 33 U/L (15-37); BILIRUBIN,TOTAL 0.2 mg/dL (0.1-1.0); CALCIUM, TOTAL 8.7 mg/dL (8.8-10.5); CARBON DIOXIDE 29 mmol/L (22-29); CHLORIDE 104 mmol/L (98-107); CHOL/HDL RATIO 2.9 (4.2-7.3); CHOLESTEROL 138 mg/dL (131-200); CREATININE 0.89 mg/dL (0.60-1.30); FREE T4 (FREE THYROXINE) 0.82 ng/dL (0.76-1.46); GLOMERULAR FILTR. RATE CALC > 60 mL/min (>60); GLUCOSE,RANDOM 90 mg/dL (70-110); HDL CHOLESTEROL 47 mg/dL (40-60); LDL CHOL (CALC.) 71 mg/dL (0-130); POTASSIUM 4.7 mmol/L (3.5-5.1); SODIUM SERUM 140 mmol/L (136-145); THYROID STIMULATING HORMONE 2.17 uIU/mL (0.36-3.74); TOTAL PROTEIN, SERUM 6.6 g/dL (6.4-8.2); TRIGLYCERIDES 100 mg/dL (15-150); UREA NITROGEN, BLOOD 16 mg/dL (7-18)
[2017-12-14 16:07] VITALS: BP 104/60
[2017-12-14] MEDS: DOCUSATE SODIUM 100 MG CAPSULE PO SCH (16:37)
[2017-12-14] MEDS: ROSUVASTATIN CALCIUM 10 MG TABLET PO SCH (20:34)
[2017-12-14] MEDS: QUEtiapine FUMARATE 200 MG TABLET PO SCH (20:34)
[2017-12-15 00:01] VITALS: BP 110/63
[2017-12-15] MEDS: DOCUSATE SODIUM 100 MG CAPSULE PO SCH ×2 (08:30→16:34)
[2017-12-15] MEDS: HydrOXYzine PAMOATE 25 MG CAPSULE PO SCH ×3 (08:30→16:34)
[2017-12-15] MEDS: BENZTROPINE MESYLATE 1 MG TABLET PO SCH ×2 (08:30→20:39)
[2017-12-15] MEDS: OMEPRAZOLE 20 MG CAPSULE PO SCH (08:30)
[2017-12-15] MEDS: GABAPENTIN 300 MG CAPSULE PO SCH ×3 (08:30→16:35)
[2017-12-15 08:57] LABS: AMPHET/METH SCREEN,URINE NEGATIVE (NEGATIVE); BARBITURATE SCREEN, URINE NEGATIVE (NEGATIVE); BENZODIAZEPINES SCREEN,URINE NEGATIVE (NEGATIVE); CANNABINOID SCREEN,URINE POSITIVE (NEGATIVE); COCAINE SCREEN,URINE NEGATIVE (NEGATIVE); METHADONE SCREEN, URINE NEGATIVE (NEGATIVE); OPIATE SCREEN,URINE NEGATIVE (NEGATIVE)
[2017-12-15 09:01] LABS: PHENCYCLIDINE SCREEN,URINE NEGATIVE (NEGATIVE)
[2017-12-15 09:18] LABS: APPEARANCE,URINE CLEAR (CLEAR); BILIRUBIN,URINE NEGATIVE (NEGATIVE); GLUCOSE, URINE (UA) NEGATIVE (NEGATIVE); KETONES,URINE NEGATIVE (NEGATIVE); LEUKOCYTE ESTERASE ,URINE NEGATIVE (NEGATIVE); NITRATE,URINE NEGATIVE (NEGATIVE); OCCULT BLOOD,URINE NEGATIVE (NEGATIVE); PROTEIN,URINE NEGATIVE (NEGATIVE); UROBILINOGEN,URINE 0.2 mg/dL (<=1.0)
[2017-12-15 09:23] VITALS: BP 118/79
[2017-12-15 16:08] VITALS: BP 109/65
[2017-12-15] MEDS: ROSUVASTATIN CALCIUM 10 MG TABLET PO SCH (20:39)
[2017-12-15] MEDS: QUEtiapine FUMARATE 200 MG TABLET PO SCH (20:39)
[2017-12-16 00:09] VITALS: BP 118/70
[2017-12-16 08:37] VITALS: BP 102/60
[2017-12-16] MEDS: GABAPENTIN 300 MG CAPSULE PO SCH ×3 (08:54→16:56)
[2017-12-16] MEDS: DOCUSATE SODIUM 100 MG CAPSULE PO SCH ×2 (08:54→16:56)
[2017-12-16] MEDS: BENZTROPINE MESYLATE 1 MG TABLET PO SCH ×2 (08:54→20:25)
[2017-12-16] MEDS: HydrOXYzine PAMOATE 25 MG CAPSULE PO SCH ×3 (08:55→16:56)
[2017-12-16] MEDS: OMEPRAZOLE 20 MG CAPSULE PO SCH (08:55)
[2017-12-16 16:12] VITALS: BP 128/76
[2017-12-16] MEDS: ROSUVASTATIN CALCIUM 10 MG TABLET PO SCH (20:25)
[2017-12-16] MEDS: QUEtiapine FUMARATE 200 MG TABLET PO SCH (20:25)
[2017-12-17 06:33] VITALS: BP 105/65
[2017-12-17 08:27] VITALS: BP 107/65
[2017-12-17] MEDS: GABAPENTIN 300 MG CAPSULE PO SCH ×3 (08:39→16:41)
[2017-12-17] MEDS: BENZTROPINE MESYLATE 1 MG TABLET PO SCH ×2 (08:39→20:39)
[2017-12-17] MEDS: HydrOXYzine PAMOATE 25 MG CAPSULE PO SCH ×3 (08:39→16:41)
[2017-12-17] MEDS: DOCUSATE SODIUM 100 MG CAPSULE PO SCH ×2 (08:39→16:41)
[2017-12-17] MEDS: MULTIVITAMINS, THERAPEUTIC TABLET PO SCH (08:39)
[2017-12-17] MEDS: OMEPRAZOLE 20 MG CAPSULE PO SCH (08:39)
[2017-12-17] MEDS: VITAMIN E 400 UNITS CAPSULE PO SCH (08:40)
[2017-12-17 16:28] VITALS: BP 111/71
[2017-12-17] MEDS: QUEtiapine FUMARATE 200 MG TABLET PO SCH (20:39)
[2017-12-17] MEDS: ROSUVASTATIN CALCIUM 10 MG TABLET PO SCH (20:39)
[2017-12-18] VITALS: BP 119/75
[2017-12-18 08:31] VITALS: BP 117/75
[2017-12-18] MEDS: HydrOXYzine PAMOATE 25 MG CAPSULE PO SCH ×3 (08:39→16:37)
[2017-12-18] MEDS: OMEPRAZOLE 20 MG CAPSULE PO SCH (08:39)
[2017-12-18] MEDS: DOCUSATE SODIUM 100 MG CAPSULE PO SCH ×2 (08:39→16:37)
[2017-12-18] MEDS: QUEtiapine FUMARATE 25 MG TABLET PO SCH ×2 (08:39→16:53)
[2017-12-18] MEDS: GABAPENTIN 300 MG CAPSULE PO SCH ×3 (08:39→16:38)
[2017-12-18] MEDS: BENZTROPINE MESYLATE 1 MG TABLET PO SCH ×2 (08:39→20:34)
[2017-12-18] MEDS: MULTIVITAMINS, THERAPEUTIC TABLET PO SCH (08:39)
[2017-12-18] MEDS: VITAMIN E 400 UNITS CAPSULE PO SCH (08:39)
[2017-12-18 16:35] VITALS: BP 126/71
[2017-12-18] MEDS: QUEtiapine FUMARATE 200 MG TABLET PO SCH (20:34)
[2017-12-18] MEDS: ROSUVASTATIN CALCIUM 10 MG TABLET PO SCH (20:34)
[2017-12-19] VITALS: BP 119/77
[2017-12-19] MEDS ORDERED: QUET25TA PO (03:57)
[2017-12-19] MEDS: HydrOXYzine PAMOATE 25 MG CAPSULE PO SCH (08:34)
[2017-12-19] MEDS: GABAPENTIN 300 MG CAPSULE PO SCH (08:34)
[2017-12-19] MEDS: BENZTROPINE MESYLATE 1 MG TABLET PO SCH (08:34)
[2017-12-19] MEDS: OMEPRAZOLE 20 MG CAPSULE PO SCH (08:34)
[2017-12-19] MEDS: MULTIVITAMINS, THERAPEUTIC TABLET PO SCH (08:34)
[2017-12-19] MEDS: QUEtiapine FUMARATE 25 MG TABLET PO SCH (08:34)
[2017-12-19] MEDS: DOCUSATE SODIUM 100 MG CAPSULE PO SCH (08:34)
[2017-12-19] MEDS: VITAMIN E 400 UNITS CAPSULE PO SCH (08:35)
[2017-12-19 08:39] VITALS: BP 107/72
== END 2017-12-19 10:15 | disposition home or self-care (01) | DRG 885 ==
LOC: B2X 23:18 → EDSTATUS 23:22
PROVIDERS: ADMIT Psychiatry & Neurology Psychiatry; ATTEND Psychiatry & Neurology Psychiatry
DX: F31.63 Bipolar disorder, current episode mixed, severe, without psychotic features (principal); F79 Unspecified intellectual disabilities; R45.851 Suicidal ideations; D72.828 Other elevated white blood cell count; E78.5 Hyperlipidemia, unspecified; F12.10 Cannabis abuse, uncomplicated; F41.9 Anxiety disorder, unspecified; J44.9 Chronic obstructive pulmonary disease, unspecified; K21.9 Gastro-esophageal reflux disease without esophagitis; K59.00 Constipation, unspecified; Z87.891 Personal history of nicotine dependence; Z81.8 Family history of other mental and behavioral disorders
CPT/HCPCS: 80307; 83036; 84439; 84443; 90471

== ENCOUNTER 2017-12-22 17:59 | Inpatient (IN) | payer MEDICARE, MEDICAID ==
[~2017-12-22] VITALS: Ht 170.2 cm; Wt 79.4 kg
[~2017-12-22 17:59] MED LIST changes: -OMEG-135 PO; +QUET25TA PO
[2017-12-22] MEDS ORDERED: LORazepam 2 MG TABLET PO PRN (18:45)
[2017-12-22] MEDS ORDERED: ZOLPIDEM TARTRATE 10 MG TABLET PO PRN (18:45)
[2017-12-22] MEDS ORDERED: QUEtiapine FUMARATE 100 MG TABLET PO PRN (18:45)
[2017-12-22 19:15] VITALS: BP 127/90
[2017-12-22] MEDS: GABAPENTIN 300 MG CAPSULE PO SCH (19:41)
[2017-12-22] MEDS: BENZTROPINE MESYLATE 1 MG TABLET PO SCH (20:45)
[2017-12-22] MEDS: QUEtiapine FUMARATE 200 MG TABLET PO SCH (20:45)
[2017-12-22] MEDS: ROSUVASTATIN CALCIUM 10 MG TABLET PO SCH (21:40)
[2017-12-23] VITALS: BP 132/73
[2017-12-23] MEDS: QUEtiapine FUMARATE 25 MG TABLET PO SCH ×2 (08:21→16:41)
[2017-12-23] MEDS: GABAPENTIN 300 MG CAPSULE PO SCH ×3 (08:21→16:41)
[2017-12-23] MEDS: MULTIVITAMINS, THERAPEUTIC TABLET PO SCH (08:21)
[2017-12-23] MEDS: BENZTROPINE MESYLATE 1 MG TABLET PO SCH ×2 (08:21→20:30)
[2017-12-23] MEDS: OMEPRAZOLE 20 MG CAPSULE PO SCH (08:21)
[2017-12-23] MEDS: DOCUSATE SODIUM 100 MG CAPSULE PO SCH ×2 (08:21→16:41)
[2017-12-23 08:28] LABS: BASOPHILS % (AUTO) 0.2 % (0.0-2.0); HEMATOCRIT 45.6 % (41-53); HEMOGLOBIN 15.8 g/dL (13.5-17.5); LYMPHOCYTES # (AUTO) 3.1 K/uL (1.0-4.8); LYMPHOCYTES % (AUTO) 31.8 % (22.0-44.0); MEAN CORPUSCULAR HGB CONC 34.6 G/dL (31.0-37.0); MEAN CORPUSCULAR VOLUME 87 fL (80-100); MONOCYTES # (AUTO) 0.8 K/uL (0.1-1.0); MONOCYTES % (AUTO) 8.5 % (2.0-9.0); NEUTROPHILS # (AUTO) 5.4 K/uL (1.8-7.7); NEUTROPHILS % (AUTO) 54.5 % (40.0-70.0); PLATELET COUNT (AUTO) 339 K/uL (150-450); RED BLOOD CELL COUNT(AUTO) 5.26 MIL/uL (4.50-5.90); RED CELL DISTRIBUTION WIDTH 13.8 % (11.5-14.5)
[2017-12-23 08:39] VITALS: BP 109/68
[2017-12-23 08:43] LABS: HEMOGLOBIN A1C 5.2 % (4.5-6.2)
[2017-12-23 09:08] LABS: ALANINE AMINOTRANSFERASE 64 U/L (12-78); ALBUMIN 3.5 g/dL (3.4-5.0); ALKALINE PHOSPHATASE 90 U/L (46-116); ANION GAP 9 mmol/L (8-16); ASPARTATE AMINOTRANSFERASE 35 U/L (15-37); BILIRUBIN,TOTAL 0.3 mg/dL (0.1-1.0); CALCIUM, TOTAL 9.1 mg/dL (8.8-10.5); CARBON DIOXIDE 28 mmol/L (22-29); CHLORIDE 103 mmol/L (98-107); CHOL/HDL RATIO 3.5 (4.2-7.3); CHOLESTEROL 166 mg/dL (131-200); CREATININE 0.94 mg/dL (0.60-1.30); FREE T4 (FREE THYROXINE) 0.74 ng/dL (0.76-1.46); GLOMERULAR FILTR. RATE CALC > 60 mL/min (>60); GLUCOSE,RANDOM 88 mg/dL (70-110); HDL CHOLESTEROL 47 mg/dL (40-60); LDL CHOL (CALC.) 90 mg/dL (0-130); POTASSIUM 4.4 mmol/L (3.5-5.1); SODIUM SERUM 140 mmol/L (136-145); THYROID STIMULATING HORMONE 2.13 uIU/mL (0.36-3.74); TOTAL PROTEIN, SERUM 6.7 g/dL (6.4-8.2); TRIGLYCERIDES 145 mg/dL (15-150); UREA NITROGEN, BLOOD 20 mg/dL (7-18)
[2017-12-23 10:04] LABS: APPEARANCE,URINE CLEAR (CLEAR); BILIRUBIN,URINE NEGATIVE (NEGATIVE); GLUCOSE, URINE (UA) NEGATIVE (NEGATIVE); KETONES,URINE NEGATIVE (NEGATIVE); LEUKOCYTE ESTERASE ,URINE NEGATIVE (NEGATIVE); NITRATE,URINE NEGATIVE (NEGATIVE); OCCULT BLOOD,URINE NEGATIVE (NEGATIVE); PH,URINE 5.5 (5.0-8.0); PROTEIN,URINE NEGATIVE (NEGATIVE); UROBILINOGEN,URINE 0.2 mg/dL (<=1.0)
[2017-12-23 10:38] LABS: AMPHET/METH SCREEN,URINE NEGATIVE (NEGATIVE); BARBITURATE SCREEN, URINE NEGATIVE (NEGATIVE); BENZODIAZEPINES SCREEN,URINE NEGATIVE (NEGATIVE); CANNABINOID SCREEN,URINE POSITIVE (NEGATIVE); COCAINE SCREEN,URINE NEGATIVE (NEGATIVE); METHADONE SCREEN, URINE NEGATIVE (NEGATIVE); OPIATE SCREEN,URINE NEGATIVE (NEGATIVE)
[2017-12-23 10:39] LABS: PHENCYCLIDINE SCREEN,URINE NEGATIVE (NEGATIVE)
[2017-12-23 17:50] VITALS: BP 119/84
[2017-12-23] MEDS: VITAMIN E 400 UNITS CAPSULE PO SCH ×2 (20:30→21:20)
[2017-12-23] MEDS: ROSUVASTATIN CALCIUM 10 MG TABLET PO SCH (20:30)
[2017-12-23] MEDS: QUEtiapine FUMARATE 200 MG TABLET PO SCH (20:30)
[2017-12-24 00:59] VITALS: BP 117/61
[2017-12-24] MEDS: BENZTROPINE MESYLATE 1 MG TABLET PO SCH ×2 (08:20→20:10)
[2017-12-24] MEDS: VITAMIN E 400 UNITS CAPSULE PO SCH (08:20)
[2017-12-24] MEDS: OMEPRAZOLE 20 MG CAPSULE PO SCH (08:20)
[2017-12-24] MEDS: GABAPENTIN 300 MG CAPSULE PO SCH ×3 (08:20→17:05)
[2017-12-24] MEDS: QUEtiapine FUMARATE 25 MG TABLET PO SCH ×2 (08:20→17:05)
[2017-12-24] MEDS: MULTIVITAMINS, THERAPEUTIC TABLET PO SCH (08:20)
[2017-12-24] MEDS: DOCUSATE SODIUM 100 MG CAPSULE PO SCH ×2 (08:20→17:05)
[2017-12-24 08:26] VITALS: BP 106/60
[2017-12-24 16:09] VITALS: BP 100/63
[2017-12-24] MEDS: ROSUVASTATIN CALCIUM 10 MG TABLET PO SCH (20:11)
[2017-12-24] MEDS: QUEtiapine FUMARATE 200 MG TABLET PO SCH (20:11)
[2017-12-25 00:05] VITALS: BP 118/74
[2017-12-25 08:33] VITALS: BP 100/61
[2017-12-25] MEDS: DOCUSATE SODIUM 100 MG CAPSULE PO SCH ×2 (09:13→16:52)
[2017-12-25] MEDS: BENZTROPINE MESYLATE 1 MG TABLET PO SCH ×2 (09:13→20:35)
[2017-12-25] MEDS: MULTIVITAMINS, THERAPEUTIC TABLET PO SCH (09:13)
[2017-12-25] MEDS: OMEPRAZOLE 20 MG CAPSULE PO SCH (09:13)
[2017-12-25] MEDS: GABAPENTIN 300 MG CAPSULE PO SCH ×3 (09:13→16:52)
[2017-12-25] MEDS: QUEtiapine FUMARATE 25 MG TABLET PO SCH ×2 (09:13→16:52)
[2017-12-25] MEDS: VITAMIN E 400 UNITS CAPSULE PO SCH (09:14)
[2017-12-25 16:00] VITALS: BP 139/88
[2017-12-25] MEDS: ROSUVASTATIN CALCIUM 10 MG TABLET PO SCH (20:35)
[2017-12-25] MEDS: QUEtiapine FUMARATE 200 MG TABLET PO SCH (20:35)
[2017-12-26 01:44] VITALS: BP 125/60
[2017-12-26] MEDS: OMEPRAZOLE 20 MG CAPSULE PO SCH (08:03)
[2017-12-26] MEDS: DOCUSATE SODIUM 100 MG CAPSULE PO SCH ×2 (08:04→16:33)
[2017-12-26] MEDS: BENZTROPINE MESYLATE 1 MG TABLET PO SCH ×2 (08:04→20:31)
[2017-12-26] MEDS: GABAPENTIN 300 MG CAPSULE PO SCH ×3 (08:04→16:33)
[2017-12-26] MEDS: MULTIVITAMINS, THERAPEUTIC TABLET PO SCH (08:04)
[2017-12-26] MEDS: QUEtiapine FUMARATE 25 MG TABLET PO SCH ×2 (08:04→16:33)
[2017-12-26] MEDS: VITAMIN E 400 UNITS CAPSULE PO SCH (08:04)
[2017-12-26 08:24] VITALS: BP 103/60
[2017-12-26 16:14] VITALS: BP 117/68
[2017-12-26] MEDS: QUEtiapine FUMARATE 200 MG TABLET PO SCH (20:31)
[2017-12-26] MEDS: ROSUVASTATIN CALCIUM 10 MG TABLET PO SCH (20:31)
[2017-12-27 00:40] VITALS: BP 101/65
[2017-12-27 08:29] VITALS: BP 128/69
[2017-12-27] MEDS: GABAPENTIN 300 MG CAPSULE PO SCH ×3 (08:47→16:43)
[2017-12-27] MEDS: DOCUSATE SODIUM 100 MG CAPSULE PO SCH ×2 (08:47→16:42)
[2017-12-27] MEDS: MULTIVITAMINS, THERAPEUTIC TABLET PO SCH (08:47)
[2017-12-27] MEDS: BENZTROPINE MESYLATE 1 MG TABLET PO SCH ×2 (08:47→20:32)
[2017-12-27] MEDS: VITAMIN E 400 UNITS CAPSULE PO SCH (08:48)
[2017-12-27] MEDS: OMEPRAZOLE 20 MG CAPSULE PO SCH (08:48)
[2017-12-27] MEDS: QUEtiapine FUMARATE 25 MG TABLET PO SCH ×2 (08:48→16:42)
[2017-12-27 16:11] VITALS: BP 123/72
[2017-12-27] MEDS: QUEtiapine FUMARATE 200 MG TABLET PO SCH (20:32)
[2017-12-27] MEDS: ROSUVASTATIN CALCIUM 10 MG TABLET PO SCH (20:32)
[2017-12-28 06:12] VITALS: BP 110/73
[2017-12-28] MEDS: VITAMIN E 400 UNITS CAPSULE PO SCH (08:03)
[2017-12-28] MEDS: MULTIVITAMINS, THERAPEUTIC TABLET PO SCH (08:04)
[2017-12-28] MEDS: OMEPRAZOLE 20 MG CAPSULE PO SCH (08:04)
[2017-12-28] MEDS: DOCUSATE SODIUM 100 MG CAPSULE PO SCH (08:04)
[2017-12-28] MEDS: GABAPENTIN 300 MG CAPSULE PO SCH (08:04)
[2017-12-28] MEDS: BENZTROPINE MESYLATE 1 MG TABLET PO SCH (08:04)
[2017-12-28] MEDS: QUEtiapine FUMARATE 25 MG TABLET PO SCH (08:04)
[2017-12-28 08:48] VITALS: BP 113/72
== END 2017-12-28 09:55 | disposition home or self-care (01) | DRG 885 ==
LOC: B2X 18:49
PROVIDERS: ADMIT Psychiatry & Neurology Psychiatry; ATTEND Psychiatry & Neurology Psychiatry
DX: F31.63 Bipolar disorder, current episode mixed, severe, without psychotic features (principal); R45.851 Suicidal ideations; Z91.14 Patient's other noncompliance with medication regimen; E78.00 Pure hypercholesterolemia, unspecified; E78.5 Hyperlipidemia, unspecified; F12.20 Cannabis dependence, uncomplicated; F41.9 Anxiety disorder, unspecified; J44.9 Chronic obstructive pulmonary disease, unspecified; K21.9 Gastro-esophageal reflux disease without esophagitis; K59.00 Constipation, unspecified; Z80.0 Family history of malignant neoplasm of digestive organs; Z81.8 Family history of other mental and behavioral disorders; Z87.891 Personal history of nicotine dependence; Z91.030 Bee allergy status; Z91.018 Allergy to other foods
CPT/HCPCS: 80307; 83036; 84439; 84443; 87081

== ENCOUNTER 2017-12-31 14:22 | Inpatient (IN) | payer MEDICARE, MEDICAID ==
[~2017-12-31] VITALS: Ht 170.2 cm; Wt 81.2 kg
[~2017-12-31 14:22] MED LIST changes: -HYDR-4031 PO
[2017-12-31] MEDS ORDERED: ONDANSETRON HCL 4 MG TABLET PO ONE (15:30)
[2017-12-31 15:57] LABS: BASOPHILS % (AUTO) 0.2 % (0.0-2.0); EOSINOPHILS % (AUTO) 0.6 % (1.0-6.0); HEMATOCRIT 47.9 % (41-53); HEMOGLOBIN 16.4 g/dL (13.5-17.5); LYMPHOCYTES # (AUTO) 2.3 K/uL (1.0-4.8); LYMPHOCYTES % (AUTO) 20.9 % (22.0-44.0); MEAN CORPUSCULAR HEMOGLOBIN 29.6 pg (26.0-34.0); MEAN CORPUSCULAR HGB CONC 34.2 G/dL (31.0-37.0); MEAN CORPUSCULAR VOLUME 87 fL (80-100); MONOCYTES # (AUTO) 1.1 K/uL (0.1-1.0); MONOCYTES % (AUTO) 9.7 % (2.0-9.0); NEUTROPHILS # (AUTO) 7.6 K/uL (1.8-7.7); NEUTROPHILS % (AUTO) 68.6 % (40.0-70.0); PLATELET COUNT (AUTO) 339 K/uL (150-450); RED BLOOD CELL COUNT(AUTO) 5.53 MIL/uL (4.50-5.90); RED CELL DISTRIBUTION WIDTH 14.2 % (11.5-14.5)
[2017-12-31] MEDS ORDERED: ZOLPIDEM TARTRATE 10 MG TABLET PO PRN (16:00)
[2017-12-31] MEDS ORDERED: QUEtiapine FUMARATE 100 MG TABLET PO PRN (16:00)
[2017-12-31] MEDS ORDERED: LORazepam 2 MG TABLET PO PRN (16:00)
[2017-12-31 16:12] LABS: ANION GAP 8 mmol/L (8-16); CALCIUM, TOTAL 9.9 mg/dL (8.8-10.5); CARBON DIOXIDE 31 mmol/L (22-29); CHLORIDE 102 mmol/L (98-107); CREATININE 0.86 mg/dL (0.60-1.30); GLOMERULAR FILTR. RATE CALC > 60 mL/min (>60); GLUCOSE,RANDOM 107 mg/dL (70-110); POTASSIUM 4.2 mmol/L (3.5-5.1); SODIUM SERUM 141 mmol/L (136-145); UREA NITROGEN, BLOOD 14 mg/dL (7-18)
[2017-12-31 16:26] LABS: ALANINE AMINOTRANSFERASE 47 U/L (12-78); ALBUMIN 4.3 g/dL (3.4-5.0); ALKALINE PHOSPHATASE 102 U/L (46-116); ASPARTATE AMINOTRANSFERASE 32 U/L (15-37); BILIRUBIN,TOTAL 0.7 mg/dL (0.1-1.0); CHOL/HDL RATIO 2.8 (4.2-7.3); CHOLESTEROL 189 mg/dL (131-200); FREE T4 (FREE THYROXINE) 1.28 ng/dL (0.76-1.46); HDL CHOLESTEROL 67 mg/dL (40-60); LDL CHOL (CALC.) 113 mg/dL (0-130); THYROID STIMULATING HORMONE 1.18 uIU/mL (0.36-3.74); TOTAL PROTEIN, SERUM 8.4 g/dL (6.4-8.2); TRIGLYCERIDES 45 mg/dL (15-150)
[2017-12-31] MEDS: QUEtiapine FUMARATE 25 MG TABLET PO SCH ×2 (17:00→18:33)
[2017-12-31 18:06] VITALS: BP 137/91
[2017-12-31] MEDS ORDERED: INFLUENZA VIRUS VACCINE QVS 2017-18 (3YR+)/PF 60 MCG/0.5 ML SYRINGE IM ONE (18:15)
[2017-12-31] MEDS ORDERED: PNEUMOCOCCAL VACCINE POLYVALENT 0.5 ML VIAL [PPSV23] IM ONE (18:15)
[2017-12-31] MEDS: GABAPENTIN 300 MG CAPSULE PO SCH ×2 (18:29→18:33)
[2017-12-31] MEDS: ROSUVASTATIN CALCIUM 10 MG TABLET PO SCH (21:25)
[2017-12-31] MEDS: BENZTROPINE MESYLATE 1 MG TABLET PO SCH (21:25)
[2017-12-31] MEDS: QUEtiapine FUMARATE 200 MG TABLET PO SCH (21:25)
[2018-01-01 00:21] VITALS: BP 109/63
[2018-01-01 08:26] VITALS: BP 104/61
[2018-01-01] MEDS: GABAPENTIN 300 MG CAPSULE PO SCH ×3 (08:52→16:29)
[2018-01-01] MEDS: QUEtiapine FUMARATE 25 MG TABLET PO SCH ×2 (08:52→16:29)
[2018-01-01] MEDS: DOCUSATE SODIUM 100 MG CAPSULE PO SCH ×2 (08:52→16:29)
[2018-01-01] MEDS: MULTIVITAMINS WITH MINERALS, THERAPEUTIC TABLET PO SCH (08:52)
[2018-01-01] MEDS: OMEPRAZOLE 20 MG CAPSULE PO SCH (08:52)
[2018-01-01] MEDS: OMEGA-3/DHA/EPA/FISH OIL 1,000 MG CAPSULE PO SCH (08:52)
[2018-01-01] MEDS: BENZTROPINE MESYLATE 1 MG TABLET PO SCH ×2 (08:52→20:37)
[2018-01-01] MEDS: VITAMIN E 400 UNITS CAPSULE PO SCH (08:53)
[2018-01-01] MEDS ORDERED: MULTIVITAMINS WITH IRON TABLET PO SCH (09:00)
[2018-01-01] MEDS ORDERED: DOCUSATE SODIUM 250 MG CAPSULE PO SCH (09:00)
[2018-01-01 09:10] LABS: AMPHET/METH SCREEN,URINE POSITIVE (NEGATIVE); APPEARANCE,URINE CLOUDY (CLEAR); BARBITURATE SCREEN, URINE NEGATIVE (NEGATIVE); BENZODIAZEPINES SCREEN,URINE NEGATIVE (NEGATIVE); BILIRUBIN,URINE NEGATIVE (NEGATIVE); CANNABINOID SCREEN,URINE POSITIVE (NEGATIVE); COCAINE SCREEN,URINE NEGATIVE (NEGATIVE); GLUCOSE, URINE (UA) NEGATIVE (NEGATIVE); KETONES,URINE 40 mg/dL (NEGATIVE); LEUKOCYTE ESTERASE ,URINE SMALL (NEGATIVE); METHADONE SCREEN, URINE NEGATIVE (NEGATIVE); NITRATE,URINE NEGATIVE (NEGATIVE); OCCULT BLOOD,URINE NEGATIVE (NEGATIVE); OPIATE SCREEN,URINE NEGATIVE (NEGATIVE); PROTEIN,URINE POS 1+ (NEGATIVE)
[2018-01-01 09:12] LABS: PHENCYCLIDINE SCREEN,URINE NEGATIVE (NEGATIVE)
[2018-01-01 10:18] LABS: RBC,URINE None Seen /HPF (0-2)
[2018-01-01 10:19] LABS: BACTERIA,URINE Few /HPF (None Seen)
[2018-01-01 10:20] LABS: AMORPHOUS SEDIMENT,UR Moderate /LPF (None Seen); SQUAMOUS EPITHELIAL CELL,UR Rare /LPF (None Seen)
[2018-01-01 16:07] VITALS: BP 108/72
[2018-01-01] MEDS: QUEtiapine FUMARATE 200 MG TABLET PO SCH (20:37)
[2018-01-01] MEDS: ROSUVASTATIN CALCIUM 10 MG TABLET PO SCH (20:37)
[2018-01-02 05:52] VITALS: BP 102/68
[2018-01-02] MEDS: QUEtiapine FUMARATE 25 MG TABLET PO SCH ×2 (08:23→16:53)
[2018-01-02] MEDS: VITAMIN E 400 UNITS CAPSULE PO SCH (08:23)
[2018-01-02] MEDS: MULTIVITAMINS WITH MINERALS, THERAPEUTIC TABLET PO SCH (08:23)
[2018-01-02] MEDS: DOCUSATE SODIUM 100 MG CAPSULE PO SCH ×2 (08:23→16:53)
[2018-01-02] MEDS: OMEPRAZOLE 20 MG CAPSULE PO SCH (08:23)
[2018-01-02] MEDS: BENZTROPINE MESYLATE 1 MG TABLET PO SCH ×2 (08:23→21:24)
[2018-01-02] MEDS: GABAPENTIN 300 MG CAPSULE PO SCH ×3 (08:23→16:53)
[2018-01-02] MEDS: OMEGA-3/DHA/EPA/FISH OIL 1,000 MG CAPSULE PO SCH (08:23)
[2018-01-02 08:52] VITALS: BP 100/64
[2018-01-02 16:26] VITALS: BP 135/85
[2018-01-02] MEDS: QUEtiapine FUMARATE 200 MG TABLET PO SCH (21:24)
[2018-01-02] MEDS: ROSUVASTATIN CALCIUM 10 MG TABLET PO SCH (21:24)
[2018-01-03 00:10] VITALS: BP 118/75
[2018-01-03] MEDS: MULTIVITAMINS WITH MINERALS, THERAPEUTIC TABLET PO SCH (08:35)
[2018-01-03] MEDS: OMEGA-3/DHA/EPA/FISH OIL 1,000 MG CAPSULE PO SCH (08:35)
[2018-01-03] MEDS: VITAMIN E 400 UNITS CAPSULE PO SCH (08:35)
[2018-01-03] MEDS: GABAPENTIN 300 MG CAPSULE PO SCH ×3 (08:35→16:40)
[2018-01-03] MEDS: QUEtiapine FUMARATE 25 MG TABLET PO SCH ×2 (08:35→16:40)
[2018-01-03] MEDS: OMEPRAZOLE 20 MG CAPSULE PO SCH (08:35)
[2018-01-03] MEDS: BENZTROPINE MESYLATE 1 MG TABLET PO SCH ×2 (08:35→20:35)
[2018-01-03] MEDS: DOCUSATE SODIUM 100 MG CAPSULE PO SCH ×2 (08:35→16:39)
[2018-01-03 08:40] VITALS: BP 105/66
[2018-01-03 16:16] VITALS: BP 115/83
[2018-01-03] MEDS: ROSUVASTATIN CALCIUM 10 MG TABLET PO SCH (20:35)
[2018-01-03] MEDS: QUEtiapine FUMARATE 200 MG TABLET PO SCH (20:35)
[2018-01-04 01:42] VITALS: BP 139/65
[2018-01-04 08:16] VITALS: BP 100/55
[2018-01-04] MEDS: BENZTROPINE MESYLATE 1 MG TABLET PO SCH ×2 (08:57→20:36)
[2018-01-04] MEDS: OMEGA-3/DHA/EPA/FISH OIL 1,000 MG CAPSULE PO SCH (08:57)
[2018-01-04] MEDS: OMEPRAZOLE 20 MG CAPSULE PO SCH (08:57)
[2018-01-04] MEDS: GABAPENTIN 300 MG CAPSULE PO SCH ×3 (08:57→16:29)
[2018-01-04] MEDS: MULTIVITAMINS WITH MINERALS, THERAPEUTIC TABLET PO SCH (08:57)
[2018-01-04] MEDS: DOCUSATE SODIUM 100 MG CAPSULE PO SCH ×2 (08:57→16:29)
[2018-01-04] MEDS: CIPROFLOXACIN HCL 250 MG TABLET PO SCH (08:57)
[2018-01-04] MEDS: QUEtiapine FUMARATE 25 MG TABLET PO SCH ×2 (08:57→16:29)
[2018-01-04] MEDS: VITAMIN E 400 UNITS CAPSULE PO SCH (09:00)
[2018-01-04] MEDS ORDERED: CIPR-279 PO (13:03)
[2018-01-04 16:30] VITALS: BP 121/73
[2018-01-04] MEDS: QUEtiapine FUMARATE 200 MG TABLET PO SCH (20:36)
[2018-01-04] MEDS: ROSUVASTATIN CALCIUM 10 MG TABLET PO SCH (20:36)
[2018-01-05 02:04] VITALS: BP 127/72
[2018-01-05 08:00] VITALS: BP 120/73
[2018-01-05 08:08] LABS: BASOPHILS % (AUTO) 0.2 % (0.0-2.0); EOSINOPHILS % (AUTO) 6.7 % (1.0-6.0); HEMATOCRIT 45.5 % (41-53); HEMOGLOBIN 15.7 g/dL (13.5-17.5); LYMPHOCYTES % (AUTO) 32.3 % (22.0-44.0); MEAN CORPUSCULAR HEMOGLOBIN 29.9 pg (26.0-34.0); MEAN CORPUSCULAR HGB CONC 34.5 G/dL (31.0-37.0); MEAN CORPUSCULAR VOLUME 87 fL (80-100); MONOCYTES # (AUTO) 0.9 K/uL (0.1-1.0); MONOCYTES % (AUTO) 9.3 % (2.0-9.0); NEUTROPHILS # (AUTO) 4.8 K/uL (1.8-7.7); NEUTROPHILS % (AUTO) 51.5 % (40.0-70.0); PLATELET COUNT (AUTO) 332 K/uL (150-450); RED BLOOD CELL COUNT(AUTO) 5.26 MIL/uL (4.50-5.90); RED CELL DISTRIBUTION WIDTH 13.4 % (11.5-14.5)
[2018-01-05] MEDS: CIPROFLOXACIN HCL 250 MG TABLET PO SCH (08:30)
[2018-01-05] MEDS: DOCUSATE SODIUM 100 MG CAPSULE PO SCH ×2 (08:30→16:41)
[2018-01-05] MEDS: GABAPENTIN 300 MG CAPSULE PO SCH ×3 (08:30→16:41)
[2018-01-05] MEDS: OMEGA-3/DHA/EPA/FISH OIL 1,000 MG CAPSULE PO SCH (08:30)
[2018-01-05] MEDS: QUEtiapine FUMARATE 25 MG TABLET PO SCH ×2 (08:30→16:41)
[2018-01-05] MEDS: BENZTROPINE MESYLATE 1 MG TABLET PO SCH ×2 (08:30→20:37)
[2018-01-05] MEDS: MULTIVITAMINS WITH MINERALS, THERAPEUTIC TABLET PO SCH (08:30)
[2018-01-05] MEDS: VITAMIN E 400 UNITS CAPSULE PO SCH (08:30)
[2018-01-05] MEDS: OMEPRAZOLE 20 MG CAPSULE PO SCH (08:32)
[2018-01-05 16:20] VITALS: BP 132/83
[2018-01-05] MEDS: ROSUVASTATIN CALCIUM 10 MG TABLET PO SCH (20:37)
[2018-01-05] MEDS: QUEtiapine FUMARATE 200 MG TABLET PO SCH (20:37)
[2018-01-06 01:03] VITALS: BP 116/72
[2018-01-06] MEDS: MULTIVITAMINS WITH MINERALS, THERAPEUTIC TABLET PO SCH (08:22)
[2018-01-06] MEDS: GABAPENTIN 300 MG CAPSULE PO SCH ×2 (08:22→12:21)
[2018-01-06] MEDS: BENZTROPINE MESYLATE 1 MG TABLET PO SCH (08:22)
[2018-01-06] MEDS: OMEGA-3/DHA/EPA/FISH OIL 1,000 MG CAPSULE PO SCH (08:22)
[2018-01-06] MEDS: OMEPRAZOLE 20 MG CAPSULE PO SCH (08:22)
[2018-01-06] MEDS: DOCUSATE SODIUM 100 MG CAPSULE PO SCH (08:22)
[2018-01-06] MEDS: QUEtiapine FUMARATE 25 MG TABLET PO SCH (08:22)
[2018-01-06] MEDS: CIPROFLOXACIN HCL 250 MG TABLET PO SCH (08:23)
[2018-01-06] MEDS: VITAMIN E 400 UNITS CAPSULE PO SCH (08:23)
[2018-01-06 08:46] VITALS: BP 110/71
[2018-01-06 09:15] LABS: BASOPHILS % (AUTO) 0.1 % (0.0-2.0); EOSINOPHILS % (AUTO) 7.6 % (1.0-6.0); HEMATOCRIT 46.1 % (41-53); HEMOGLOBIN 15.9 g/dL (13.5-17.5); LYMPHOCYTES # (AUTO) 3.2 K/uL (1.0-4.8); LYMPHOCYTES % (AUTO) 35.5 % (22.0-44.0); MEAN CORPUSCULAR HEMOGLOBIN 30.2 pg (26.0-34.0); MEAN CORPUSCULAR HGB CONC 34.5 G/dL (31.0-37.0); MEAN CORPUSCULAR VOLUME 88 fL (80-100); MONOCYTES # (AUTO) 0.8 K/uL (0.1-1.0); MONOCYTES % (AUTO) 9.4 % (2.0-9.0); NEUTROPHILS # (AUTO) 4.2 K/uL (1.8-7.7); NEUTROPHILS % (AUTO) 47.4 % (40.0-70.0); PLATELET COUNT (AUTO) 331 K/uL (150-450); RED BLOOD CELL COUNT(AUTO) 5.26 MIL/uL (4.50-5.90); RED CELL DISTRIBUTION WIDTH 13.9 % (11.5-14.5)
[2018-01-06] MEDS ORDERED: OMEG-135 PO (13:02)
== END 2018-01-06 13:25 | disposition home or self-care (01) | DRG 885 ==
LOC: EMS 14:24 → B2X 16:44
PROVIDERS: ADMIT Psychiatry & Neurology Psychiatry; ATTEND Psychiatry & Neurology Psychiatry
DX: F31.64 Bipolar disorder, current episode mixed, severe, with psychotic features (principal); R45.851 Suicidal ideations; R45.850 Homicidal ideations; N39.0 Urinary tract infection, site not specified; F70 Mild intellectual disabilities; E55.9 Vitamin D deficiency, unspecified; E78.5 Hyperlipidemia, unspecified; F15.10 Other stimulant abuse, uncomplicated; F41.9 Anxiety disorder, unspecified; J44.9 Chronic obstructive pulmonary disease, unspecified; K21.9 Gastro-esophageal reflux disease without esophagitis; F17.210 Nicotine dependence, cigarettes, uncomplicated; E66.9 Obesity, unspecified; F10.20 Alcohol dependence, uncomplicated; F12.20 Cannabis dependence, uncomplicated; G47.00 Insomnia, unspecified; K59.09 Other constipation; Z59.0 Homelessness; Z79.899 Other long term (current) drug therapy; Z91.14 Patient's other noncompliance with medication regimen; Z91.19 Patient's noncompliance with other medical treatment and regimen; Z68.28 Body mass index [BMI] 28.0-28.9, adult; Z91.030 Bee allergy status
CPT/HCPCS: 80307; 84439; 84443; 87081; 99285; G0480; Q0162

== ENCOUNTER 2018-01-26 19:46 | Inpatient (IN) | payer MEDICARE, MEDICAID ==
[~2018-01-26] VITALS: Ht 167.6 cm; Wt 83.9 kg
[~2018-01-26 19:46] MED LIST changes: +CIPR-279 PO; +OMEG-135 PO
[2018-01-26] MEDS ORDERED: LORazepam 1 MG TABLET PO PRN (22:00)
[2018-01-26] MEDS ORDERED: QUEtiapine FUMARATE 100 MG TABLET PO PRN (22:00)
[2018-01-26 23:11] VITALS: BP 124/72
[2018-01-27 00:30] VITALS: BP 137/78
[2018-01-27] MEDS: HydrOXYzine PAMOATE 25 MG CAPSULE PO SCH ×2 (08:13→16:04)
[2018-01-27] MEDS: GABAPENTIN 400 MG CAPSULE PO SCH ×3 (08:13→16:04)
[2018-01-27 08:21] VITALS: BP 131/62
[2018-01-27 08:29] LABS: BASOPHILS % (AUTO) 0.3 % (0.0-2.0); EOSINOPHILS % (AUTO) 6.7 % (1.0-6.0); HEMATOCRIT 46.6 % (41-53); LYMPHOCYTES # (AUTO) 3.2 K/uL (1.0-4.8); MEAN CORPUSCULAR HEMOGLOBIN 30.2 pg (26.0-34.0); MEAN CORPUSCULAR HGB CONC 34.3 G/dL (31.0-37.0); MEAN CORPUSCULAR VOLUME 88 fL (80-100); MONOCYTES # (AUTO) 0.8 K/uL (0.1-1.0); NEUTROPHILS # (AUTO) 3.9 K/uL (1.8-7.7); PLATELET COUNT (AUTO) 325 K/uL (150-450); RED CELL DISTRIBUTION WIDTH 13.9 % (11.5-14.5)
[2018-01-27 09:13] LABS: APPEARANCE,URINE CLOUDY (CLEAR); BILIRUBIN,URINE NEGATIVE (NEGATIVE); GLUCOSE, URINE (UA) NEGATIVE (NEGATIVE); KETONES,URINE NEGATIVE (NEGATIVE); LEUKOCYTE ESTERASE ,URINE NEGATIVE (NEGATIVE); NITRATE,URINE NEGATIVE (NEGATIVE); OCCULT BLOOD,URINE NEGATIVE (NEGATIVE); PH,URINE 6.5 (5.0-8.0); PROTEIN,URINE NEGATIVE (NEGATIVE); UROBILINOGEN,URINE 0.2 mg/dL (<=1.0)
[2018-01-27 09:14] LABS: HEMOGLOBIN A1C 5.5 % (4.5-6.2)
[2018-01-27 09:30] LABS: ALANINE AMINOTRANSFERASE 45 U/L (12-78); ALBUMIN 3.6 g/dL (3.4-5.0); ALKALINE PHOSPHATASE 83 U/L (46-116); ANION GAP 7 mmol/L (8-16); ASPARTATE AMINOTRANSFERASE 25 U/L (15-37); BILIRUBIN,TOTAL 0.2 mg/dL (0.1-1.0); CALCIUM, TOTAL 9.2 mg/dL (8.8-10.5); CARBON DIOXIDE 28 mmol/L (22-29); CHLORIDE 104 mmol/L (98-107); CHOL/HDL RATIO 2.7 (4.2-7.3); CHOLESTEROL 129 mg/dL (131-200); CREATININE 0.92 mg/dL (0.60-1.30); FREE T4 (FREE THYROXINE) 0.88 ng/dL (0.76-1.46); GLOMERULAR FILTR. RATE CALC > 60 mL/min (>60); GLUCOSE,RANDOM 90 mg/dL (70-110); HDL CHOLESTEROL 48 mg/dL (40-60); LDL CHOL (CALC.) 61 mg/dL (0-130); POTASSIUM 4.8 mmol/L (3.5-5.1); SODIUM SERUM 139 mmol/L (136-145); THYROID STIMULATING HORMONE 1.14 uIU/mL (0.36-3.74); TOTAL PROTEIN, SERUM 6.8 g/dL (6.4-8.2); TRIGLYCERIDES 101 mg/dL (15-150); UREA NITROGEN, BLOOD 19 mg/dL (7-18)
[2018-01-27 09:45] LABS: RBC,URINE None Seen /HPF (0-2)
[2018-01-27 09:46] LABS: BACTERIA,URINE Few /HPF (None Seen); WBC,URINE 0-2 /HPF (0-5)
[2018-01-27 09:49] LABS: AMORPHOUS SEDIMENT,UR Moderate /LPF (None Seen); SQUAMOUS EPITHELIAL CELL,UR None Seen /LPF (None Seen)
[2018-01-27] MEDS: DOCUSATE SODIUM 100 MG CAPSULE PO SCH (16:04)
[2018-01-27 16:13] VITALS: BP 120/60
[2018-01-27] MEDS: BENZTROPINE MESYLATE 1 MG TABLET PO SCH (21:27)
[2018-01-27] MEDS: ROSUVASTATIN CALCIUM 10 MG TABLET PO SCH (21:27)
[2018-01-27] MEDS: QUEtiapine FUMARATE 100 MG TABLET PO SCH (21:27)
[2018-01-28 01:27] VITALS: BP 118/76
[2018-01-28 08:36] VITALS: BP 108/60
[2018-01-28] MEDS: DOCUSATE SODIUM 100 MG CAPSULE PO SCH ×2 (08:40→16:40)
[2018-01-28] MEDS: OMEGA-3/DHA/EPA/FISH OIL 1,000 MG CAPSULE PO SCH (08:40)
[2018-01-28] MEDS: MULTIVITAMINS, THERAPEUTIC TABLET PO SCH (08:40)
[2018-01-28] MEDS: OMEPRAZOLE 20 MG CAPSULE PO SCH (08:40)
[2018-01-28] MEDS: VITAMIN E 400 UNITS CAPSULE PO SCH (08:40)
[2018-01-28] MEDS: HydrOXYzine PAMOATE 25 MG CAPSULE PO SCH ×2 (08:40→16:40)
[2018-01-28] MEDS: GABAPENTIN 400 MG CAPSULE PO SCH ×3 (08:40→16:40)
[2018-01-28 16:17] VITALS: BP 101/65
[2018-01-28] MEDS: ROSUVASTATIN CALCIUM 10 MG TABLET PO SCH (20:00)
[2018-01-28] MEDS: QUEtiapine FUMARATE 100 MG TABLET PO SCH (20:00)
[2018-01-28] MEDS: BENZTROPINE MESYLATE 1 MG TABLET PO SCH (20:00)
[2018-01-29 00:45] VITALS: BP 115/77
[2018-01-29] MEDS: DOCUSATE SODIUM 100 MG CAPSULE PO SCH ×2 (08:48→16:17)
[2018-01-29] MEDS: OMEGA-3/DHA/EPA/FISH OIL 1,000 MG CAPSULE PO SCH (08:49)
[2018-01-29] MEDS: HydrOXYzine PAMOATE 25 MG CAPSULE PO SCH ×2 (08:49→16:16)
[2018-01-29] MEDS: GABAPENTIN 400 MG CAPSULE PO SCH ×3 (08:49→16:16)
[2018-01-29] MEDS: MULTIVITAMINS, THERAPEUTIC TABLET PO SCH (08:49)
[2018-01-29] MEDS: OMEPRAZOLE 20 MG CAPSULE PO SCH (08:49)
[2018-01-29] MEDS: VITAMIN E 400 UNITS CAPSULE PO SCH (08:49)
[2018-01-29 09:18] VITALS: BP 138/71
[2018-01-29 16:51] VITALS: BP 121/72
[2018-01-29] MEDS: BENZTROPINE MESYLATE 1 MG TABLET PO SCH (20:13)
[2018-01-29] MEDS: ROSUVASTATIN CALCIUM 10 MG TABLET PO SCH (20:13)
[2018-01-29] MEDS: QUEtiapine FUMARATE 100 MG TABLET PO SCH (20:13)
[2018-01-30 01:26] VITALS: BP 102/62
[2018-01-30] MEDS: OMEPRAZOLE 20 MG CAPSULE PO SCH (08:48)
[2018-01-30] MEDS: DOCUSATE SODIUM 100 MG CAPSULE PO SCH ×2 (08:48→16:13)
[2018-01-30] MEDS: OMEGA-3/DHA/EPA/FISH OIL 1,000 MG CAPSULE PO SCH (08:48)
[2018-01-30] MEDS: VITAMIN E 400 UNITS CAPSULE PO SCH (08:48)
[2018-01-30] MEDS: GABAPENTIN 400 MG CAPSULE PO SCH ×3 (08:48→16:13)
[2018-01-30] MEDS: HydrOXYzine PAMOATE 25 MG CAPSULE PO SCH ×2 (08:48→16:13)
[2018-01-30] MEDS: MULTIVITAMINS, THERAPEUTIC TABLET PO SCH (08:48)
[2018-01-30 08:49] VITALS: BP 106/62
[2018-01-30] MEDS: MUPIROCIN CALCIUM 2% 22 GM OINTMENT NASAL SCH (16:15)
[2018-01-30 16:20] VITALS: BP 113/69
[2018-01-30] MEDS: QUEtiapine FUMARATE 100 MG TABLET PO SCH (20:12)
[2018-01-30] MEDS: BENZTROPINE MESYLATE 1 MG TABLET PO SCH (20:12)
[2018-01-30] MEDS: ROSUVASTATIN CALCIUM 10 MG TABLET PO SCH (20:12)
[2018-01-31] MEDS ORDERED: PNEUMOCOCCAL VACCINE POLYVALENT 0.5 ML VIAL [PPSV23] IM ONE (03:15)
[2018-01-31 03:30] VITALS: BP 101/60
[2018-01-31 08:33] VITALS: BP 105/70
[2018-01-31] MEDS: VITAMIN E 400 UNITS CAPSULE PO SCH (09:18)
[2018-01-31] MEDS: OMEGA-3/DHA/EPA/FISH OIL 1,000 MG CAPSULE PO SCH (09:18)
[2018-01-31] MEDS: OMEPRAZOLE 20 MG CAPSULE PO SCH (09:19)
[2018-01-31] MEDS: MULTIVITAMINS, THERAPEUTIC TABLET PO SCH (09:19)
[2018-01-31] MEDS: HydrOXYzine PAMOATE 25 MG CAPSULE PO SCH ×2 (09:19→16:46)
[2018-01-31] MEDS: GABAPENTIN 400 MG CAPSULE PO SCH ×3 (09:19→16:46)
[2018-01-31] MEDS: DOCUSATE SODIUM 100 MG CAPSULE PO SCH ×2 (09:19→16:45)
[2018-01-31] MEDS: MUPIROCIN CALCIUM 2% 22 GM OINTMENT NASAL SCH ×2 (09:20→16:46)
[2018-01-31 16:07] VITALS: BP 116/82
[2018-01-31] MEDS: QUEtiapine FUMARATE 100 MG TABLET PO SCH (20:48)
[2018-01-31] MEDS: BENZTROPINE MESYLATE 1 MG TABLET PO SCH (20:48)
[2018-01-31] MEDS: ROSUVASTATIN CALCIUM 10 MG TABLET PO SCH (20:48)
[2018-02-01 04:16] VITALS: BP 124/75
[2018-02-01 08:22] VITALS: BP 121/76
[2018-02-01 08:33] LABS: AMPHET/METH SCREEN,URINE NEGATIVE (NEGATIVE); BARBITURATE SCREEN, URINE NEGATIVE (NEGATIVE); BENZODIAZEPINES SCREEN,URINE NEGATIVE (NEGATIVE); CANNABINOID SCREEN,URINE NEGATIVE (NEGATIVE); COCAINE SCREEN,URINE NEGATIVE (NEGATIVE); METHADONE SCREEN, URINE NEGATIVE (NEGATIVE); OPIATE SCREEN,URINE NEGATIVE (NEGATIVE)
[2018-02-01 08:34] LABS: PHENCYCLIDINE SCREEN,URINE NEGATIVE (NEGATIVE)
[2018-02-01] MEDS: OMEPRAZOLE 20 MG CAPSULE PO SCH (09:04)
[2018-02-01] MEDS: OMEGA-3/DHA/EPA/FISH OIL 1,000 MG CAPSULE PO SCH (09:04)
[2018-02-01] MEDS: VITAMIN E 400 UNITS CAPSULE PO SCH (09:04)
[2018-02-01] MEDS: DOCUSATE SODIUM 100 MG CAPSULE PO SCH ×2 (09:04→16:39)
[2018-02-01] MEDS: MULTIVITAMINS, THERAPEUTIC TABLET PO SCH (09:04)
[2018-02-01] MEDS: HydrOXYzine PAMOATE 25 MG CAPSULE PO SCH ×2 (09:04→16:39)
[2018-02-01] MEDS: GABAPENTIN 400 MG CAPSULE PO SCH ×3 (09:04→16:39)
[2018-02-01] MEDS: MUPIROCIN CALCIUM 2% 22 GM OINTMENT NASAL SCH ×2 (09:05→16:39)
[2018-02-01 16:40] VITALS: BP 128/62
[2018-02-01] MEDS: BENZTROPINE MESYLATE 1 MG TABLET PO SCH (20:41)
[2018-02-01] MEDS: ROSUVASTATIN CALCIUM 10 MG TABLET PO SCH (20:41)
[2018-02-01] MEDS: QUEtiapine FUMARATE 100 MG TABLET PO SCH (20:41)
[2018-02-02 06:12] VITALS: BP 120/81
[2018-02-02] MEDS: OMEPRAZOLE 20 MG CAPSULE PO SCH (08:11)
[2018-02-02] MEDS: DOCUSATE SODIUM 100 MG CAPSULE PO SCH ×2 (08:11→16:36)
[2018-02-02] MEDS: GABAPENTIN 300 MG CAPSULE PO SCH ×3 (08:11→16:36)
[2018-02-02] MEDS: OMEGA-3/DHA/EPA/FISH OIL 1,000 MG CAPSULE PO SCH (08:11)
[2018-02-02] MEDS: HydrOXYzine PAMOATE 25 MG CAPSULE PO SCH ×2 (08:11→16:36)
[2018-02-02] MEDS: VITAMIN E 400 UNITS CAPSULE PO SCH (08:11)
[2018-02-02] MEDS: MUPIROCIN CALCIUM 2% 22 GM OINTMENT NASAL SCH ×2 (08:13→16:36)
[2018-02-02] MEDS: MULTIVITAMINS, THERAPEUTIC TABLET PO SCH (08:14)
[2018-02-02 08:25] VITALS: BP 123/70
[2018-02-02 16:03] VITALS: BP 132/69
[2018-02-02] MEDS: QUEtiapine FUMARATE 100 MG TABLET PO SCH (20:34)
[2018-02-02] MEDS: ROSUVASTATIN CALCIUM 10 MG TABLET PO SCH (20:34)
[2018-02-02] MEDS: BENZTROPINE MESYLATE 1 MG TABLET PO SCH (20:34)
[2018-02-03 01:39] VITALS: BP 119/76
[2018-02-03] MEDS ORDERED: GABA-531 PO (04:58)
[2018-02-03] MEDS ORDERED: HYDR-4031 PO (05:01)
[2018-02-03] MEDS ORDERED: QUET200T PO (05:01)
[2018-02-03] MEDS ORDERED: OMEG-135 PO (05:03)
[2018-02-03] MEDS ORDERED: OMEP20 PO (05:03)
[2018-02-03] MEDS ORDERED: MULT-1239 PO (05:07)
[2018-02-03] MEDS ORDERED: VITA400C70 PO (05:07)
[2018-02-03] MEDS ORDERED: BENZ1TAB10 PO (05:08)
[2018-02-03] MEDS ORDERED: ROSU10 PO (05:09)
[2018-02-03] MEDS ORDERED: DSS100 PO (05:12)
[2018-02-03] MEDS: OMEGA-3/DHA/EPA/FISH OIL 1,000 MG CAPSULE PO SCH (08:17)
[2018-02-03] MEDS: MULTIVITAMINS, THERAPEUTIC TABLET PO SCH (08:17)
[2018-02-03] MEDS: OMEPRAZOLE 20 MG CAPSULE PO SCH (08:17)
[2018-02-03] MEDS: VITAMIN E 400 UNITS CAPSULE PO SCH (08:17)
[2018-02-03] MEDS: HydrOXYzine PAMOATE 25 MG CAPSULE PO SCH ×2 (08:17→16:29)
[2018-02-03] MEDS: DOCUSATE SODIUM 100 MG CAPSULE PO SCH ×2 (08:17→16:29)
[2018-02-03] MEDS: GABAPENTIN 300 MG CAPSULE PO SCH ×3 (08:17→16:29)
[2018-02-03] MEDS: MUPIROCIN CALCIUM 2% 22 GM OINTMENT NASAL SCH ×2 (08:17→16:29)
[2018-02-03 08:36] VITALS: BP 119/60
== END 2018-02-03 20:01 | disposition home or self-care (01) | DRG 885 ==
LOC: EDSTATUS 20:04 → B2X 20:50
PROVIDERS: ADMIT Psychiatry & Neurology Psychiatry; ATTEND Psychiatry & Neurology Psychiatry
DX: F31.64 Bipolar disorder, current episode mixed, severe, with psychotic features (principal); R45.851 Suicidal ideations; F70 Mild intellectual disabilities; Z91.14 Patient's other noncompliance with medication regimen; E66.9 Obesity, unspecified; E78.5 Hyperlipidemia, unspecified; Z80.0 Family history of malignant neoplasm of digestive organs; F17.200 Nicotine dependence, unspecified, uncomplicated; R79.89 Other specified abnormal findings of blood chemistry; B95.62 Methicillin resistant Staphylococcus aureus infection as the cause of diseases classified elsewhere; F12.90 Cannabis use, unspecified, uncomplicated; J44.9 Chronic obstructive pulmonary disease, unspecified; K21.9 Gastro-esophageal reflux disease without esophagitis; K59.00 Constipation, unspecified; Z56.0 Unemployment, unspecified; Z91.19 Patient's noncompliance with other medical treatment and regimen; F15.90 Other stimulant use, unspecified, uncomplicated; Z28.21 Immunization not carried out because of patient refusal; Z91.030 Bee allergy status; Z68.29 Body mass index [BMI] 29.0-29.9, adult
CPT/HCPCS: 80307; 83036; 84439; 84443; 87081; 90471; 99285

== ENCOUNTER 2018-02-11 19:50 | Inpatient (IN) | payer MEDICARE, MEDICAID ==
[~2018-02-11] VITALS: Ht 167.6 cm; Wt 88.6 kg
[~2018-02-11 19:50] MED LIST changes: -CIPR-279 PO; +GABA-531 PO; -GABA-533 PO; +HYDR-4031 PO; +MULT-1239 PO; -MULT1CAP32 PO; -QUET25TA PO; -VITA400C19 PO; +VITA400C70 PO
[2018-02-11] MEDS ORDERED: QUEtiapine FUMARATE 100 MG TABLET PO PRN (20:30)
[2018-02-11] MEDS ORDERED: ZOLPIDEM TARTRATE 10 MG TABLET PO PRN (20:30)
[2018-02-11] MEDS ORDERED: LORazepam 1 MG TABLET PO PRN (20:30)
[2018-02-11 20:40] VITALS: BP 112/80
[2018-02-11] MEDS ORDERED: PNEUMOCOCCAL VACCINE POLYVALENT 0.5 ML VIAL [PPSV23] IM ONE (20:45)
[2018-02-11] MEDS: QUEtiapine FUMARATE 200 MG TABLET PO SCH (21:00)
[2018-02-11] MEDS: BENZTROPINE MESYLATE 1 MG TABLET PO SCH (21:00)
[2018-02-12 01:45] VITALS: BP 120/91
[2018-02-12 06:40] LABS: BASOPHILS % (AUTO) 0.2 % (0.0-2.0); EOSINOPHILS % (AUTO) 2.7 % (1.0-6.0); HEMOGLOBIN 14.8 g/dL (13.5-17.5); LYMPHOCYTES % (AUTO) 14.2 % (22.0-44.0); MEAN CORPUSCULAR HEMOGLOBIN 30.5 pg (26.0-34.0); MEAN CORPUSCULAR HGB CONC 35.3 G/dL (31.0-37.0); MEAN CORPUSCULAR VOLUME 86 fL (80-100); MONOCYTES # (AUTO) 1.2 K/uL (0.1-1.0); MONOCYTES % (AUTO) 8.6 % (2.0-9.0); NEUTROPHILS # (AUTO) 10.7 K/uL (1.8-7.7); NEUTROPHILS % (AUTO) 74.3 % (40.0-70.0); PLATELET COUNT (AUTO) 313 K/uL (150-450); RED BLOOD CELL COUNT(AUTO) 4.86 MIL/uL (4.50-5.90)
[2018-02-12 06:54] LABS: HEMOGLOBIN A1C 5.5 % (4.5-6.2)
[2018-02-12 07:14] LABS: ALANINE AMINOTRANSFERASE 55 U/L (12-78); ALBUMIN 3.5 g/dL (3.4-5.0); ALKALINE PHOSPHATASE 92 U/L (46-116); ANION GAP 6 mmol/L (8-16); ASPARTATE AMINOTRANSFERASE 30 U/L (15-37); BILIRUBIN,TOTAL 0.5 mg/dL (0.1-1.0); CALCIUM, TOTAL 8.7 mg/dL (8.8-10.5); CARBON DIOXIDE 28 mmol/L (22-29); CHLORIDE 104 mmol/L (98-107); CHOL/HDL RATIO 3.5 (4.2-7.3); CHOLESTEROL 164 mg/dL (131-200); CREATININE 0.98 mg/dL (0.60-1.30); FREE T4 (FREE THYROXINE) 0.79 ng/dL (0.76-1.46); GLOMERULAR FILTR. RATE CALC > 60 mL/min (>60); GLUCOSE,RANDOM 105 mg/dL (70-110); HDL CHOLESTEROL 47 mg/dL (40-60); LDL CHOL (CALC.) 99 mg/dL (0-130); POTASSIUM 4.4 mmol/L (3.5-5.1); SODIUM SERUM 138 mmol/L (136-145); THYROID STIMULATING HORMONE 2.08 uIU/mL (0.36-3.74); TOTAL PROTEIN, SERUM 7.2 g/dL (6.4-8.2); TRIGLYCERIDES 91 mg/dL (15-150); UREA NITROGEN, BLOOD 19 mg/dL (7-18)
[2018-02-12 08:05] VITALS: BP 110/60
[2018-02-12] MEDS: DOCUSATE SODIUM 100 MG CAPSULE PO SCH ×2 (08:20→16:40)
[2018-02-12] MEDS: MULTIVITAMINS WITH MINERALS, THERAPEUTIC TABLET PO SCH (08:21)
[2018-02-12] MEDS: HydrOXYzine PAMOATE 25 MG CAPSULE PO SCH ×2 (08:21→16:39)
[2018-02-12] MEDS: OMEGA-3/DHA/EPA/FISH OIL 1,000 MG CAPSULE PO SCH (08:21)
[2018-02-12] MEDS: OMEPRAZOLE 20 MG CAPSULE PO SCH (08:21)
[2018-02-12] MEDS: GABAPENTIN 300 MG CAPSULE PO SCH ×3 (08:21→16:40)
[2018-02-12] MEDS: VITAMIN E 400 UNITS CAPSULE PO SCH (08:22)
[2018-02-12] MEDS: BENZTROPINE MESYLATE 1 MG TABLET PO SCH (20:16)
[2018-02-12] MEDS: QUEtiapine FUMARATE 200 MG TABLET PO SCH (20:16)
[2018-02-12] MEDS: ROSUVASTATIN CALCIUM 10 MG TABLET PO SCH (21:12)
[2018-02-12 22:58] VITALS: BP 107/65
[2018-02-13 00:29] VITALS: BP 109/72
[2018-02-13 08:00] VITALS: BP 110/75
[2018-02-13] MEDS: OMEPRAZOLE 20 MG CAPSULE PO SCH (08:26)
[2018-02-13] MEDS: DOCUSATE SODIUM 100 MG CAPSULE PO SCH ×2 (08:26→16:11)
[2018-02-13] MEDS: HydrOXYzine PAMOATE 25 MG CAPSULE PO SCH ×2 (08:26→16:11)
[2018-02-13] MEDS: MULTIVITAMINS WITH MINERALS, THERAPEUTIC TABLET PO SCH (08:26)
[2018-02-13] MEDS: GABAPENTIN 300 MG CAPSULE PO SCH ×3 (08:26→16:11)
[2018-02-13] MEDS: OMEGA-3/DHA/EPA/FISH OIL 1,000 MG CAPSULE PO SCH (08:26)
[2018-02-13] MEDS: VITAMIN E 400 UNITS CAPSULE PO SCH (08:27)
[2018-02-13 11:06] LABS: AMPHET/METH SCREEN,URINE NEGATIVE (NEGATIVE); BARBITURATE SCREEN, URINE NEGATIVE (NEGATIVE); BENZODIAZEPINES SCREEN,URINE NEGATIVE (NEGATIVE); CANNABINOID SCREEN,URINE POSITIVE (NEGATIVE); COCAINE SCREEN,URINE NEGATIVE (NEGATIVE); METHADONE SCREEN, URINE NEGATIVE (NEGATIVE); OPIATE SCREEN,URINE NEGATIVE (NEGATIVE)
[2018-02-13 11:07] LABS: PHENCYCLIDINE SCREEN,URINE NEGATIVE (NEGATIVE)
[2018-02-13 11:14] LABS: APPEARANCE,URINE CLEAR (CLEAR); BILIRUBIN,URINE NEGATIVE (NEGATIVE); GLUCOSE, URINE (UA) NEGATIVE (NEGATIVE); KETONES,URINE NEGATIVE (NEGATIVE); LEUKOCYTE ESTERASE ,URINE NEGATIVE (NEGATIVE); NITRATE,URINE NEGATIVE (NEGATIVE); OCCULT BLOOD,URINE NEGATIVE (NEGATIVE); PROTEIN,URINE NEGATIVE (NEGATIVE); UROBILINOGEN,URINE 0.2 mg/dL (<=1.0)
[2018-02-13 16:42] VITALS: BP 132/73
[2018-02-13] MEDS: BENZTROPINE MESYLATE 1 MG TABLET PO SCH (20:15)
[2018-02-13] MEDS: ROSUVASTATIN CALCIUM 10 MG TABLET PO SCH (20:16)
[2018-02-13] MEDS: QUEtiapine FUMARATE 200 MG TABLET PO SCH (20:16)
[2018-02-14] MEDS: OMEPRAZOLE 20 MG CAPSULE PO SCH (09:56)
[2018-02-14] MEDS: OMEGA-3/DHA/EPA/FISH OIL 1,000 MG CAPSULE PO SCH (09:56)
[2018-02-14] MEDS: GABAPENTIN 300 MG CAPSULE PO SCH ×3 (09:56→17:48)
[2018-02-14] MEDS: MULTIVITAMINS WITH MINERALS, THERAPEUTIC TABLET PO SCH (09:56)
[2018-02-14] MEDS: VITAMIN E 400 UNITS CAPSULE PO SCH (09:56)
[2018-02-14] MEDS: HydrOXYzine PAMOATE 25 MG CAPSULE PO SCH ×2 (09:56→17:49)
[2018-02-14] MEDS: DOCUSATE SODIUM 100 MG CAPSULE PO SCH ×2 (09:56→17:48)
[2018-02-14 10:21] VITALS: BP 112/69
[2018-02-14] MEDS: QUEtiapine FUMARATE 200 MG TABLET PO SCH (20:18)
[2018-02-14] MEDS: BENZTROPINE MESYLATE 1 MG TABLET PO SCH (20:18)
[2018-02-14] MEDS: ROSUVASTATIN CALCIUM 10 MG TABLET PO SCH (20:18)
[2018-02-14 22:43] VITALS: BP 126/70
[2018-02-15 02:55] VITALS: BP 120/77
[2018-02-15 06:44] LABS: BASOPHILS % (AUTO) 0.2 % (0.0-2.0); EOSINOPHILS % (AUTO) 5.9 % (1.0-6.0); HEMATOCRIT 45.7 % (41-53); HEMOGLOBIN 16.1 g/dL (13.5-17.5); LYMPHOCYTES # (AUTO) 2.9 K/uL (1.0-4.8); LYMPHOCYTES % (AUTO) 29.9 % (22.0-44.0); MEAN CORPUSCULAR HEMOGLOBIN 30.5 pg (26.0-34.0); MEAN CORPUSCULAR HGB CONC 35.2 G/dL (31.0-37.0); MEAN CORPUSCULAR VOLUME 87 fL (80-100); MONOCYTES # (AUTO) 1.1 K/uL (0.1-1.0); MONOCYTES % (AUTO) 10.9 % (2.0-9.0); NEUTROPHILS # (AUTO) 5.2 K/uL (1.8-7.7); NEUTROPHILS % (AUTO) 53.1 % (40.0-70.0); PLATELET COUNT (AUTO) 331 K/uL (150-450); RED BLOOD CELL COUNT(AUTO) 5.28 MIL/uL (4.50-5.90)
[2018-02-15 06:59] LABS: CREATINE KINASE MB 1.7 ng/mL (0-5); CREATINE KINASE, TOTAL 138 U/L (39-308)
[2018-02-15] MEDS: HydrOXYzine PAMOATE 25 MG CAPSULE PO SCH (09:16)
[2018-02-15] MEDS: DOCUSATE SODIUM 100 MG CAPSULE PO SCH (09:16)
[2018-02-15] MEDS: OMEGA-3/DHA/EPA/FISH OIL 1,000 MG CAPSULE PO SCH (09:16)
[2018-02-15] MEDS: MULTIVITAMINS WITH MINERALS, THERAPEUTIC TABLET PO SCH (09:16)
[2018-02-15] MEDS: OMEPRAZOLE 20 MG CAPSULE PO SCH (09:16)
[2018-02-15] MEDS: GABAPENTIN 300 MG CAPSULE PO SCH ×2 (09:16→12:43)
[2018-02-15] MEDS: VITAMIN E 400 UNITS CAPSULE PO SCH (09:16)
[2018-02-15 10:21] VITALS: BP 139/74
[2018-02-24] MEDS ORDERED: THIA100T67 PO (09:19)
== END 2018-02-15 16:00 | disposition home or self-care (01) | DRG 885 ==
LOC: 3EX 20:33
PROVIDERS: ADMIT Psychiatry & Neurology Psychiatry; ATTEND Psychiatry & Neurology Psychiatry
DX: F31.63 Bipolar disorder, current episode mixed, severe, without psychotic features (principal); R45.851 Suicidal ideations; F70 Mild intellectual disabilities; D72.829 Elevated white blood cell count, unspecified; E66.9 Obesity, unspecified; E78.5 Hyperlipidemia, unspecified; F12.90 Cannabis use, unspecified, uncomplicated; F41.9 Anxiety disorder, unspecified; F17.200 Nicotine dependence, unspecified, uncomplicated; K59.09 Other constipation; J44.9 Chronic obstructive pulmonary disease, unspecified; K21.9 Gastro-esophageal reflux disease without esophagitis; Z63.9 Problem related to primary support group, unspecified; Z91.030 Bee allergy status; Z79.899 Other long term (current) drug therapy; Z28.21 Immunization not carried out because of patient refusal; Z68.31 Body mass index [BMI] 31.0-31.9, adult
CPT/HCPCS: 80307; 83036; 83735; 84439; 84443; 87081

== ENCOUNTER 2018-02-21 12:59 | Inpatient (IN) | payer MEDICARE, MEDICAID ==
[~2018-02-21] VITALS: Ht 167.6 cm; Wt 87.1 kg
[2018-02-21 13:13] VITALS: BP 121/90
[2018-02-21] MEDS ORDERED: ZOLPIDEM TARTRATE 10 MG TABLET PO PRN (13:30)
[2018-02-21] MEDS ORDERED: QUEtiapine FUMARATE 100 MG TABLET PO PRN (13:30)
[2018-02-21 16:20] VITALS: BP 128/80
[2018-02-21] MEDS ORDERED: PNEUMOCOCCAL VACCINE POLYVALENT 0.5 ML VIAL [PPSV23] IM ONE ×2 (16:30→17:00)
[2018-02-21] MEDS: HydrOXYzine PAMOATE 25 MG CAPSULE PO SCH (17:41)
[2018-02-21] MEDS: GABAPENTIN 300 MG CAPSULE PO SCH (17:42)
[2018-02-21] MEDS ORDERED: ALBUTEROL SULFATE HFA 90 MCG/PUFF 8 GM INHALER IH PRN (20:00)
[2018-02-21] MEDS: ROSUVASTATIN CALCIUM 10 MG TABLET PO SCH (20:46)
[2018-02-21] MEDS ORDERED: QUEtiapine FUMARATE 100 MG TABLET PO SCH (21:00)
[2018-02-21] MEDS ORDERED: BENZTROPINE MESYLATE 1 MG TABLET PO SCH (21:00)
[2018-02-22 06:46] VITALS: BP 117/86
[2018-02-22] MEDS: DOCUSATE SODIUM 100 MG CAPSULE PO SCH ×2 (08:49→16:11)
[2018-02-22] MEDS: OMEGA-3/DHA/EPA/FISH OIL 1,000 MG CAPSULE PO SCH (08:49)
[2018-02-22] MEDS: HydrOXYzine PAMOATE 25 MG CAPSULE PO SCH ×2 (08:51→16:12)
[2018-02-22] MEDS: GABAPENTIN 300 MG CAPSULE PO SCH ×2 (08:51→16:12)
[2018-02-22] MEDS: OMEPRAZOLE 20 MG CAPSULE PO SCH (08:51)
[2018-02-22 09:01] VITALS: BP 118/68
[2018-02-22] MEDS: LORazepam 1 MG TABLET PO PRN (09:39)
[2018-02-22 09:54] LABS: HEMOGLOBIN A1C 5.9 % (4.5-6.2)
[2018-02-22 10:26] LABS: ALANINE AMINOTRANSFERASE 64 U/L (12-78); ALBUMIN 3.3 g/dL (3.4-5.0); ALKALINE PHOSPHATASE 96 U/L (46-116); ANION GAP 9 mmol/L (8-16); ASPARTATE AMINOTRANSFERASE 54 U/L (15-37); BILIRUBIN,TOTAL 0.6 mg/dL (0.1-1.0); CALCIUM, TOTAL 8.5 mg/dL (8.8-10.5); CARBON DIOXIDE 26 mmol/L (22-29); CHLORIDE 103 mmol/L (98-107); CHOL/HDL RATIO 3.1 (4.2-7.3); CHOLESTEROL 157 mg/dL (131-200); CREATININE 1.02 mg/dL (0.60-1.30); FREE T4 (FREE THYROXINE) 1.03 ng/dL (0.76-1.46); GLOMERULAR FILTR. RATE CALC > 60 mL/min (>60); GLUCOSE,RANDOM 78 mg/dL (70-110); HDL CHOLESTEROL 50 mg/dL (40-60); LDL CHOL (CALC.) 91 mg/dL (0-130); POTASSIUM 3.6 mmol/L (3.5-5.1); SODIUM SERUM 138 mmol/L (136-145); TOTAL PROTEIN, SERUM 7.2 g/dL (6.4-8.2); TRIGLYCERIDES 82 mg/dL (15-150); UREA NITROGEN, BLOOD 16 mg/dL (7-18)
[2018-02-22] MEDS ORDERED: PROMETHAZINE HCL 25 MG TABLET PO PRN (14:00)
[2018-02-22] MEDS ORDERED: HydrOXYzine PAMOATE 50 MG CAPSULE PO PRN (14:00)
[2018-02-22] MEDS ORDERED: ACETAMINOPHEN 325 MG TABLET PO PRN (14:00)
[2018-02-22] MEDS ORDERED: MAGNESIUM HYDROXIDE SUSPENSION 30 ML UDCUP PO PRN (14:00)
[2018-02-22] MEDS ORDERED: MAG HYDROX/AL HYDROX/SIMETH ES 30 ML SUSPENSION UDCUP PO PRN (14:00)
[2018-02-22] MEDS ORDERED: LOPERAMIDE HCL 2 MG CAPSULE PO PRN (14:00)
[2018-02-22] MEDS ORDERED: GuaiFENesin/D-METHORPHAN [SUGAR-FREE] 200-20MG/10 ML SYRUP UDCUP PO PRN (14:00)
[2018-02-22 16:08] VITALS: BP 98/62
[2018-02-22] MEDS: THIAMINE HCL 100 MG TABLET PO SCH (16:12)
[2018-02-22] MEDS: ROSUVASTATIN CALCIUM 10 MG TABLET PO SCH (20:32)
[2018-02-22] MEDS: DIVALPROEX SODIUM 500 MG ER TABLET PO SCH (20:34)
[2018-02-22] MEDS ORDERED: QUEtiapine FUMARATE 200 MG TABLET PO SCH (21:00)
[2018-02-23 04:58] VITALS: BP 124/78
[2018-02-23 06:49] VITALS: BP 106/71
[2018-02-23 08:27] VITALS: BP 116/75
[2018-02-23] MEDS: OMEGA-3/DHA/EPA/FISH OIL 1,000 MG CAPSULE PO SCH (08:44)
[2018-02-23] MEDS: THIAMINE HCL 100 MG TABLET PO SCH ×2 (08:44→16:49)
[2018-02-23] MEDS: HydrOXYzine PAMOATE 25 MG CAPSULE PO SCH ×2 (08:44→16:49)
[2018-02-23] MEDS: FOLIC ACID 1 MG TABLET PO SCH (08:44)
[2018-02-23] MEDS: GABAPENTIN 300 MG CAPSULE PO SCH ×2 (08:44→16:49)
[2018-02-23] MEDS: MULTIVITAMINS WITH MINERALS, THERAPEUTIC TABLET PO SCH (08:44)
[2018-02-23] MEDS: OMEPRAZOLE 20 MG CAPSULE PO SCH (08:45)
[2018-02-23] MEDS: DOCUSATE SODIUM 100 MG CAPSULE PO SCH ×2 (08:45→16:49)
[2018-02-23] MEDS ORDERED: OMEG-135 PO (14:11)
[2018-02-23] MEDS ORDERED: NALT50TA PO (14:11)
[2018-02-23] MEDS ORDERED: QUET200T29 PO (14:11)
[2018-02-23] MEDS ORDERED: DIVA500T52 PO (14:11)
[2018-02-23] MEDS ORDERED: HALOPERIDOL LACTATE 5 MG/ML VIAL IM ONE (15:00)
[2018-02-23] MEDS ORDERED: DiphenhydrAMINE HCL 50 MG/ML VIAL IM ONE (15:00)
[2018-02-23] MEDS ORDERED: LORazepam 2 MG/ML VIAL IM ONE (15:00)
[2018-02-23 16:00] VITALS: BP 117/78
[2018-02-23] MEDS: ROSUVASTATIN CALCIUM 10 MG TABLET PO SCH (20:55)
[2018-02-23] MEDS: DIVALPROEX SODIUM 500 MG ER TABLET PO SCH (20:56)
[2018-02-23] MEDS ORDERED: QUEtiapine FUMARATE 200 MG TABLET PO SCH (21:00)
[2018-02-24 06:27] VITALS: BP 108/63
[2018-02-24 08:15] VITALS: BP 101/65
[2018-02-24] MEDS: THIAMINE HCL 100 MG TABLET PO SCH (08:28)
[2018-02-24] MEDS: OMEGA-3/DHA/EPA/FISH OIL 1,000 MG CAPSULE PO SCH (08:28)
[2018-02-24] MEDS: MULTIVITAMINS WITH MINERALS, THERAPEUTIC TABLET PO SCH (08:28)
[2018-02-24] MEDS: HydrOXYzine PAMOATE 25 MG CAPSULE PO SCH (08:28)
[2018-02-24] MEDS: FOLIC ACID 1 MG TABLET PO SCH (08:28)
[2018-02-24] MEDS: DOCUSATE SODIUM 100 MG CAPSULE PO SCH (08:28)
[2018-02-24] MEDS: GABAPENTIN 300 MG CAPSULE PO SCH (08:28)
[2018-02-24] MEDS: LORazepam 1 MG TABLET PO PRN (08:29)
[2018-02-24] MEDS: OMEPRAZOLE 20 MG CAPSULE PO SCH (08:29)
[2018-02-24] MEDS ORDERED: NALTREXONE HCL 50 MG TABLET PO SCH (09:00)
[2018-02-24] MEDS ORDERED: THIA100 PO (09:19)
[2018-02-24] MEDS ORDERED: OMEP20 PO (09:20)
== END 2018-02-24 13:45 | disposition home or self-care (01) | DRG 885 ==
LOC: B2S 15:44 → B3A 02-23 14:50
PROVIDERS: ADMIT Psychiatry & Neurology Psychiatry; ATTEND Psychiatry & Neurology Psychiatry
DX: F31.63 Bipolar disorder, current episode mixed, severe, without psychotic features (principal); R45.851 Suicidal ideations; F15.20 Other stimulant dependence, uncomplicated; F70 Mild intellectual disabilities; Z91.19 Patient's noncompliance with other medical treatment and regimen; K59.00 Constipation, unspecified; K21.9 Gastro-esophageal reflux disease without esophagitis; J44.9 Chronic obstructive pulmonary disease, unspecified; E78.5 Hyperlipidemia, unspecified; E66.9 Obesity, unspecified; F12.20 Cannabis dependence, uncomplicated; R45.4 Irritability and anger; Z68.31 Body mass index [BMI] 31.0-31.9, adult
CPT/HCPCS: 83036; 84439; 84443; 87081; J1200; J1630; J2060

== ENCOUNTER 2018-03-17 18:30 | Inpatient (IN) | payer MEDICARE, MEDICAID ==
[~2018-03-17] VITALS: Ht 167.6 cm; Wt 83.6 kg
[~2018-03-17 18:30] MED LIST changes: -BENZ1TAB10 PO; +DIVA500T52 PO; -MULT-1239 PO; +NALT50TA PO; -QUET200T PO; +QUET200T29 PO; +THIA100T67 PO; -VITA400C70 PO
[2018-03-17 19:01] VITALS: BP 126/85
[2018-03-17] MEDS ORDERED: ZOLPIDEM TARTRATE 10 MG TABLET PO PRN (19:15)
[2018-03-17] MEDS ORDERED: ChlorproMAZINE HCL 100 MG TABLET PO PRN (19:15)
[2018-03-17] MEDS ORDERED: LORazepam 2 MG TABLET PO PRN (19:15)
[2018-03-17] MEDS ORDERED: PNEUMOCOCCAL VACCINE POLYVALENT 0.5 ML VIAL [PPSV23] IM ONE (19:45)
[2018-03-17] MEDS: GABAPENTIN 300 MG CAPSULE PO SCH (20:08)
[2018-03-17] MEDS: BENZTROPINE MESYLATE 1 MG TABLET PO SCH (20:08)
[2018-03-17] MEDS: HydrOXYzine PAMOATE 25 MG CAPSULE PO SCH (20:08)
[2018-03-17] MEDS: QUEtiapine FUMARATE 200 MG TABLET PO SCH (20:08)
[2018-03-17 20:12] VITALS: BP 130/92
[2018-03-17] MEDS ORDERED: HYDROCORTISONE 2.5% 30 GM OINTMENT TP PRN (20:45)
[2018-03-17] MEDS: ROSUVASTATIN CALCIUM 10 MG TABLET PO SCH (21:53)
[2018-03-17] MEDS ORDERED: PERMETHRIN 5% 60 GM CREAM TP ONE (22:00)
[2018-03-18 06:02] VITALS: BP 110/63
[2018-03-18 07:50] LABS: BASOPHILS % (AUTO) 0.4 % (0.0-2.0); EOSINOPHILS % (AUTO) 4.5 % (1.0-6.0); HEMATOCRIT 44.2 % (41-53); HEMOGLOBIN 15.3 g/dL (13.5-17.5); LYMPHOCYTES # (AUTO) 4.1 K/uL (1.0-4.8); MEAN CORPUSCULAR HEMOGLOBIN 30.2 pg (26.0-34.0); MEAN CORPUSCULAR HGB CONC 34.6 G/dL (31.0-37.0); MEAN CORPUSCULAR VOLUME 88 fL (80-100); MONOCYTES # (AUTO) 0.9 K/uL (0.1-1.0); MONOCYTES % (AUTO) 9.2 % (2.0-9.0); NEUTROPHILS # (AUTO) 4.1 K/uL (1.8-7.7); NEUTROPHILS % (AUTO) 42.9 % (40.0-70.0); PLATELET COUNT (AUTO) 321 K/uL (150-450); RED BLOOD CELL COUNT(AUTO) 5.05 MIL/uL (4.50-5.90); RED CELL DISTRIBUTION WIDTH 13.9 % (11.5-14.5)
[2018-03-18 08:25] VITALS: BP 112/60
[2018-03-18 08:30] LABS: AMPHET/METH SCREEN,URINE NEGATIVE (NEGATIVE); BARBITURATE SCREEN, URINE NEGATIVE (NEGATIVE); BENZODIAZEPINES SCREEN,URINE NEGATIVE (NEGATIVE); CANNABINOID SCREEN,URINE POSITIVE (NEGATIVE); COCAINE SCREEN,URINE NEGATIVE (NEGATIVE); METHADONE SCREEN, URINE NEGATIVE (NEGATIVE); OPIATE SCREEN,URINE NEGATIVE (NEGATIVE)
[2018-03-18 08:31] LABS: PHENCYCLIDINE SCREEN,URINE NEGATIVE (NEGATIVE)
[2018-03-18 08:32] LABS: ALANINE AMINOTRANSFERASE 37 U/L (12-78); ALBUMIN 3.4 g/dL (3.4-5.0); ALKALINE PHOSPHATASE 74 U/L (46-116); ANION GAP 6 mmol/L (8-16); ASPARTATE AMINOTRANSFERASE 20 U/L (15-37); BILIRUBIN,TOTAL 0.3 mg/dL (0.1-1.0); CALCIUM, TOTAL 9.1 mg/dL (8.8-10.5); CARBON DIOXIDE 29 mmol/L (22-29); CHLORIDE 108 mmol/L (98-107); CHOL/HDL RATIO 4.3 (4.2-7.3); CHOLESTEROL 188 mg/dL (131-200); CREATININE 1.08 mg/dL (0.60-1.30); FREE T4 (FREE THYROXINE) 0.81 ng/dL (0.76-1.46); GLOMERULAR FILTR. RATE CALC > 60 mL/min (>60); GLUCOSE,RANDOM 86 mg/dL (70-110); HDL CHOLESTEROL 44 mg/dL (40-60); LDL CHOL (CALC.) 124 mg/dL (0-130); POTASSIUM 5.7 mmol/L (3.5-5.1); SODIUM SERUM 143 mmol/L (136-145); TOTAL PROTEIN, SERUM 6.7 g/dL (6.4-8.2); TRIGLYCERIDES 102 mg/dL (15-150); UREA NITROGEN, BLOOD 19 mg/dL (7-18)
[2018-03-18 08:42] LABS: BILIRUBIN,URINE NEGATIVE (NEGATIVE); GLUCOSE, URINE (UA) NEGATIVE (NEGATIVE); KETONES,URINE NEGATIVE (NEGATIVE); LEUKOCYTE ESTERASE ,URINE TRACE (NEGATIVE); NITRATE,URINE NEGATIVE (NEGATIVE); OCCULT BLOOD,URINE NEGATIVE (NEGATIVE); PH,URINE 5.5 (5.0-8.0); PROTEIN,URINE NEGATIVE (NEGATIVE); UROBILINOGEN,URINE 0.2 mg/dL (<=1.0)
[2018-03-18 09:23] LABS: APPEARANCE,URINE HAZY (CLEAR)
[2018-03-18] MEDS: THIAMINE HCL 100 MG TABLET PO SCH ×2 (09:43→17:18)
[2018-03-18] MEDS: HydrOXYzine PAMOATE 25 MG CAPSULE PO SCH (09:43)
[2018-03-18] MEDS: DOCUSATE SODIUM 100 MG CAPSULE PO SCH ×2 (09:43→17:18)
[2018-03-18] MEDS: OMEPRAZOLE 20 MG CAPSULE PO SCH (09:43)
[2018-03-18] MEDS: GABAPENTIN 300 MG CAPSULE PO SCH ×3 (09:43→17:18)
[2018-03-18] MEDS: OMEGA-3/DHA/EPA/FISH OIL 1,000 MG CAPSULE PO SCH (09:43)
[2018-03-18] MEDS: NYSTATIN 15 GM POWDER BOTTLE TP SCH ×2 (09:44→17:21)
[2018-03-18 09:54] LABS: BACTERIA,URINE Few /HPF (None Seen); CALCIUM OXALATE CRYSTALS,UR Moderate /LPF (None Seen); RBC,URINE 0-2 /HPF (0-2); SQUAMOUS EPITHELIAL CELL,UR Rare /LPF (None Seen)
[2018-03-18] MEDS: SODIUM POLYSTYRENE SULFONATE 15 GM/60 ML SUSPENSION BOTTLE PO SCH ×3 (11:02→22:16)
[2018-03-18] MEDS: HydrOXYzine HCL 25 MG TABLET PO SCH (17:18)
[2018-03-18] MEDS: HYDROCORTISONE 2.5% 30 GM CREAM TP SCH (17:21)
[2018-03-18] MEDS: QUEtiapine FUMARATE 200 MG TABLET PO SCH (21:06)
[2018-03-18] MEDS: ROSUVASTATIN CALCIUM 10 MG TABLET PO SCH (21:06)
[2018-03-18] MEDS: BENZTROPINE MESYLATE 1 MG TABLET PO SCH (21:06)
[2018-03-19] MEDS: SODIUM POLYSTYRENE SULFONATE 15 GM/60 ML SUSPENSION BOTTLE PO SCH (05:18)
[2018-03-19 06:46] VITALS: BP 128/72
[2018-03-19 07:37] LABS: ANION GAP 5 mmol/L (8-16); CALCIUM, TOTAL 8.5 mg/dL (8.8-10.5); CARBON DIOXIDE 32 mmol/L (22-29); CHLORIDE 106 mmol/L (98-107); CREATININE 1.08 mg/dL (0.60-1.30); GLOMERULAR FILTR. RATE CALC > 60 mL/min (>60); GLUCOSE,RANDOM 77 mg/dL (70-110); POTASSIUM 4.7 mmol/L (3.5-5.1); SODIUM SERUM 143 mmol/L (136-145); UREA NITROGEN, BLOOD 24 mg/dL (7-18)
[2018-03-19 08:44] VITALS: BP 108/69
[2018-03-19] MEDS: GABAPENTIN 300 MG CAPSULE PO SCH ×3 (08:46→17:10)
[2018-03-19] MEDS: DOCUSATE SODIUM 100 MG CAPSULE PO SCH ×2 (08:46→17:10)
[2018-03-19] MEDS: THIAMINE HCL 100 MG TABLET PO SCH ×2 (08:46→17:10)
[2018-03-19] MEDS: OMEGA-3/DHA/EPA/FISH OIL 1,000 MG CAPSULE PO SCH (08:47)
[2018-03-19] MEDS: OMEPRAZOLE 20 MG CAPSULE PO SCH (08:47)
[2018-03-19] MEDS: NYSTATIN 15 GM POWDER BOTTLE TP SCH ×2 (08:49→17:18)
[2018-03-19] MEDS: HYDROCORTISONE 2.5% 30 GM CREAM TP SCH ×3 (08:49→17:18)
[2018-03-19] MEDS: HydrOXYzine HCL 25 MG TABLET PO SCH ×3 (12:08→17:10)
[2018-03-19 16:31] VITALS: BP 118/85
[2018-03-19] MEDS: QUEtiapine FUMARATE 200 MG TABLET PO SCH (21:09)
[2018-03-19] MEDS: BENZTROPINE MESYLATE 1 MG TABLET PO SCH (21:09)
[2018-03-19] MEDS: ROSUVASTATIN CALCIUM 10 MG TABLET PO SCH (21:09)
[2018-03-20 05:28] VITALS: BP 114/87
[2018-03-20 08:00] VITALS: BP 110/67
[2018-03-20] MEDS: DOCUSATE SODIUM 100 MG CAPSULE PO SCH ×2 (08:51→17:00)
[2018-03-20] MEDS: HydrOXYzine HCL 25 MG TABLET PO SCH ×3 (08:51→17:00)
[2018-03-20] MEDS: OMEGA-3/DHA/EPA/FISH OIL 1,000 MG CAPSULE PO SCH (08:51)
[2018-03-20] MEDS: OMEPRAZOLE 20 MG CAPSULE PO SCH (08:51)
[2018-03-20] MEDS: THIAMINE HCL 100 MG TABLET PO SCH ×2 (08:51→17:00)
[2018-03-20] MEDS: GABAPENTIN 300 MG CAPSULE PO SCH ×3 (08:51→17:00)
[2018-03-20] MEDS: NYSTATIN 15 GM POWDER BOTTLE TP SCH ×2 (08:52→17:02)
[2018-03-20] MEDS: HYDROCORTISONE 2.5% 30 GM CREAM TP SCH ×3 (08:52→16:49)
[2018-03-20 16:32] VITALS: BP 117/81
[2018-03-20] MEDS: BENZTROPINE MESYLATE 1 MG TABLET PO SCH (20:38)
[2018-03-20] MEDS: ROSUVASTATIN CALCIUM 10 MG TABLET PO SCH (20:39)
[2018-03-20] MEDS: QUEtiapine FUMARATE 200 MG TABLET PO SCH (20:39)
[2018-03-21 00:05] VITALS: BP 104/61
[2018-03-21 08:32] VITALS: BP 108/75
[2018-03-21] MEDS: THIAMINE HCL 100 MG TABLET PO SCH ×2 (08:53→16:38)
[2018-03-21] MEDS: HydrOXYzine HCL 25 MG TABLET PO SCH ×3 (08:53→16:38)
[2018-03-21] MEDS: DOCUSATE SODIUM 100 MG CAPSULE PO SCH ×2 (08:53→16:38)
[2018-03-21] MEDS: OMEPRAZOLE 20 MG CAPSULE PO SCH (08:53)
[2018-03-21] MEDS: GABAPENTIN 300 MG CAPSULE PO SCH ×3 (08:53→16:38)
[2018-03-21] MEDS: OMEGA-3/DHA/EPA/FISH OIL 1,000 MG CAPSULE PO SCH (08:53)
[2018-03-21] MEDS: HYDROCORTISONE 2.5% 30 GM CREAM TP SCH ×3 (08:54→16:39)
[2018-03-21] MEDS: NYSTATIN 15 GM POWDER BOTTLE TP SCH ×2 (08:54→16:38)
[2018-03-21 16:13] VITALS: BP 125/85
[2018-03-21] MEDS: ROSUVASTATIN CALCIUM 10 MG TABLET PO SCH (20:34)
[2018-03-21] MEDS: QUEtiapine FUMARATE 200 MG TABLET PO SCH (20:34)
[2018-03-21] MEDS: BENZTROPINE MESYLATE 1 MG TABLET PO SCH (20:34)
[2018-03-22 01:40] VITALS: BP 106/68
[2018-03-22 08:16] VITALS: BP 113/65
[2018-03-22] MEDS: GABAPENTIN 300 MG CAPSULE PO SCH ×3 (09:19→16:35)
[2018-03-22] MEDS: DOCUSATE SODIUM 100 MG CAPSULE PO SCH ×2 (09:19→16:35)
[2018-03-22] MEDS: HydrOXYzine HCL 25 MG TABLET PO SCH ×3 (09:19→16:35)
[2018-03-22] MEDS: OMEGA-3/DHA/EPA/FISH OIL 1,000 MG CAPSULE PO SCH (09:19)
[2018-03-22] MEDS: THIAMINE HCL 100 MG TABLET PO SCH ×2 (09:19→16:34)
[2018-03-22] MEDS: OMEPRAZOLE 20 MG CAPSULE PO SCH (09:19)
[2018-03-22] MEDS: NYSTATIN 15 GM POWDER BOTTLE TP SCH ×2 (09:20→16:35)
[2018-03-22] MEDS: HYDROCORTISONE 2.5% 30 GM CREAM TP SCH ×3 (09:20→16:35)
[2018-03-22 16:27] VITALS: BP 113/78
[2018-03-22] MEDS: ROSUVASTATIN CALCIUM 10 MG TABLET PO SCH (20:56)
[2018-03-22] MEDS: QUEtiapine FUMARATE 200 MG TABLET PO SCH (20:57)
[2018-03-22] MEDS: BENZTROPINE MESYLATE 1 MG TABLET PO SCH (20:57)
[2018-03-23 00:07] VITALS: BP 111/73
[2018-03-23] MEDS: OMEPRAZOLE 20 MG CAPSULE PO SCH (08:50)
[2018-03-23] MEDS: OMEGA-3/DHA/EPA/FISH OIL 1,000 MG CAPSULE PO SCH (08:50)
[2018-03-23] MEDS: MULTIVITAMINS WITH MINERALS, THERAPEUTIC TABLET PO SCH (08:50)
[2018-03-23] MEDS: THIAMINE HCL 100 MG TABLET PO SCH ×2 (08:50→16:56)
[2018-03-23] MEDS: DOCUSATE SODIUM 100 MG CAPSULE PO SCH ×2 (08:50→16:56)
[2018-03-23] MEDS: HydrOXYzine HCL 25 MG TABLET PO SCH ×3 (08:50→16:56)
[2018-03-23] MEDS: VITAMIN E 400 UNITS CAPSULE PO SCH (08:50)
[2018-03-23] MEDS: GABAPENTIN 300 MG CAPSULE PO SCH ×3 (08:51→16:56)
[2018-03-23] MEDS: HYDROCORTISONE 2.5% 30 GM CREAM TP SCH ×3 (08:52→16:57)
[2018-03-23] MEDS: NYSTATIN 15 GM POWDER BOTTLE TP SCH ×2 (08:52→16:56)
[2018-03-23 08:55] VITALS: BP 103/68
[2018-03-23] MEDS ORDERED: VITAMIN E 200 UNIT PO SCH (09:00)
[2018-03-23 16:17] VITALS: BP 103/68
[2018-03-23] MEDS: QUEtiapine FUMARATE 200 MG TABLET PO SCH (20:47)
[2018-03-23] MEDS: ROSUVASTATIN CALCIUM 10 MG TABLET PO SCH (20:47)
[2018-03-23] MEDS: BENZTROPINE MESYLATE 1 MG TABLET PO SCH (20:47)
[2018-03-23] MEDS: ZOLPIDEM TARTRATE 5 MG TABLET PO PRN (22:36)
[2018-03-24 01:48] VITALS: BP 114/66
[2018-03-24 08:37] VITALS: BP 119/70
[2018-03-24] MEDS: OMEGA-3/DHA/EPA/FISH OIL 1,000 MG CAPSULE PO SCH (09:04)
[2018-03-24] MEDS: DOCUSATE SODIUM 100 MG CAPSULE PO SCH ×2 (09:04→16:37)
[2018-03-24] MEDS: THIAMINE HCL 100 MG TABLET PO SCH ×2 (09:04→16:37)
[2018-03-24] MEDS: HydrOXYzine HCL 25 MG TABLET PO SCH ×3 (09:04→16:37)
[2018-03-24] MEDS: VITAMIN E 400 UNITS CAPSULE PO SCH (09:04)
[2018-03-24] MEDS: MULTIVITAMINS WITH MINERALS, THERAPEUTIC TABLET PO SCH (09:04)
[2018-03-24] MEDS: GABAPENTIN 300 MG CAPSULE PO SCH ×3 (09:04→16:37)
[2018-03-24] MEDS: OMEPRAZOLE 20 MG CAPSULE PO SCH (09:04)
[2018-03-24] MEDS: HYDROCORTISONE 2.5% 30 GM CREAM TP SCH ×3 (09:10→16:38)
[2018-03-24] MEDS: NYSTATIN 15 GM POWDER BOTTLE TP SCH ×2 (09:10→16:38)
[2018-03-24 16:13] VITALS: BP 127/78
[2018-03-24] MEDS: ROSUVASTATIN CALCIUM 10 MG TABLET PO SCH (21:16)
[2018-03-24] MEDS: QUEtiapine FUMARATE 200 MG TABLET PO SCH (21:17)
[2018-03-24] MEDS: BENZTROPINE MESYLATE 1 MG TABLET PO SCH (21:17)
[2018-03-25 00:05] VITALS: BP 120/61
[2018-03-25 08:31] VITALS: BP 114/60
[2018-03-25] MEDS: VITAMIN E 400 UNITS CAPSULE PO SCH (09:43)
[2018-03-25] MEDS: DOCUSATE SODIUM 100 MG CAPSULE PO SCH ×2 (09:43→16:32)
[2018-03-25] MEDS: HydrOXYzine HCL 25 MG TABLET PO SCH ×3 (09:43→16:32)
[2018-03-25] MEDS: OMEGA-3/DHA/EPA/FISH OIL 1,000 MG CAPSULE PO SCH (09:43)
[2018-03-25] MEDS: OMEPRAZOLE 20 MG CAPSULE PO SCH (09:44)
[2018-03-25] MEDS: THIAMINE HCL 100 MG TABLET PO SCH ×2 (09:44→16:32)
[2018-03-25] MEDS: GABAPENTIN 400 MG CAPSULE PO SCH ×3 (09:44→16:32)
[2018-03-25] MEDS: MULTIVITAMINS WITH MINERALS, THERAPEUTIC TABLET PO SCH (09:44)
[2018-03-25] MEDS: NYSTATIN 15 GM POWDER BOTTLE TP SCH ×2 (09:45→16:33)
[2018-03-25] MEDS: HYDROCORTISONE 2.5% 30 GM CREAM TP SCH ×3 (09:45→16:33)
[2018-03-25] MEDS ORDERED: GuaiFENesin/D-METHORPHAN [SUGAR-FREE] 200-20MG/10 ML SYRUP UDCUP PO PRN (13:00)
[2018-03-25] MEDS: FLUTICASONE PROPIONATE 50 MCG/SPRAY 16 GM NASAL SPRAY NASAL SCH (15:51)
[2018-03-25 16:09] VITALS: BP 117/78
[2018-03-25] MEDS: BENZTROPINE MESYLATE 1 MG TABLET PO SCH (21:05)
[2018-03-25] MEDS: QUEtiapine FUMARATE 200 MG TABLET PO SCH (21:05)
[2018-03-25] MEDS: ROSUVASTATIN CALCIUM 10 MG TABLET PO SCH (21:05)
[2018-03-26 05:58] VITALS: BP 115/66
[2018-03-26 08:24] VITALS: BP 116/70
[2018-03-26] MEDS: MULTIVITAMINS WITH MINERALS, THERAPEUTIC TABLET PO SCH (08:36)
[2018-03-26] MEDS: OMEGA-3/DHA/EPA/FISH OIL 1,000 MG CAPSULE PO SCH (08:36)
[2018-03-26] MEDS: VITAMIN E 400 UNITS CAPSULE PO SCH (08:36)
[2018-03-26] MEDS: HydrOXYzine HCL 25 MG TABLET PO SCH ×3 (08:36→16:41)
[2018-03-26] MEDS: THIAMINE HCL 100 MG TABLET PO SCH ×2 (08:36→16:42)
[2018-03-26] MEDS: GABAPENTIN 400 MG CAPSULE PO SCH ×3 (08:36→16:41)
[2018-03-26] MEDS: OMEPRAZOLE 20 MG CAPSULE PO SCH (08:36)
[2018-03-26] MEDS: DOCUSATE SODIUM 100 MG CAPSULE PO SCH ×2 (08:36→16:41)
[2018-03-26] MEDS: FLUTICASONE PROPIONATE 50 MCG/SPRAY 16 GM NASAL SPRAY NASAL SCH (08:37)
[2018-03-26] MEDS: NYSTATIN 15 GM POWDER BOTTLE TP SCH ×2 (08:37→16:42)
[2018-03-26] MEDS: HYDROCORTISONE 2.5% 30 GM CREAM TP SCH ×3 (08:38→16:42)
[2018-03-26 16:13] VITALS: BP 112/78
[2018-03-26] MEDS: QUEtiapine FUMARATE 200 MG TABLET PO SCH (21:01)
[2018-03-26] MEDS: BENZTROPINE MESYLATE 1 MG TABLET PO SCH (21:01)
[2018-03-26] MEDS: ROSUVASTATIN CALCIUM 10 MG TABLET PO SCH (21:01)
[2018-03-26] MEDS ORDERED: QUET200T PO (22:57)
[2018-03-26] MEDS ORDERED: BENZ1TAB10 PO (22:57)
[2018-03-27 00:30] VITALS: BP 123/96
[2018-03-27] MEDS: ZOLPIDEM TARTRATE 5 MG TABLET PO PRN (00:31)
[2018-03-27] MEDS: ACETAMINOPHEN 325 MG TABLET PO PRN ×2 (00:43→09:37)
[2018-03-27] MEDS ORDERED: VITA400T9 PO (08:05)
[2018-03-27] MEDS ORDERED: HYDR28.35 TP (08:05)
[2018-03-27] MEDS ORDERED: FLUT16H NASAL (08:05)
[2018-03-27] MEDS ORDERED: NYST15PO3 TP (08:05)
[2018-03-27 08:33] VITALS: BP 118/74
[2018-03-27] MEDS: VITAMIN E 400 UNITS CAPSULE PO SCH (08:46)
[2018-03-27] MEDS: MULTIVITAMINS WITH MINERALS, THERAPEUTIC TABLET PO SCH (08:46)
[2018-03-27] MEDS: GABAPENTIN 400 MG CAPSULE PO SCH (08:46)
[2018-03-27] MEDS: HydrOXYzine HCL 25 MG TABLET PO SCH (08:46)
[2018-03-27] MEDS: OMEGA-3/DHA/EPA/FISH OIL 1,000 MG CAPSULE PO SCH (08:46)
[2018-03-27] MEDS: OMEPRAZOLE 20 MG CAPSULE PO SCH (08:46)
[2018-03-27] MEDS: DOCUSATE SODIUM 100 MG CAPSULE PO SCH (08:46)
[2018-03-27] MEDS: THIAMINE HCL 100 MG TABLET PO SCH (08:46)
[2018-03-27] MEDS: NYSTATIN 15 GM POWDER BOTTLE TP SCH (08:48)
[2018-03-27] MEDS: FLUTICASONE PROPIONATE 50 MCG/SPRAY 16 GM NASAL SPRAY NASAL SCH (08:48)
[2018-03-27] MEDS: HYDROCORTISONE 2.5% 30 GM CREAM TP SCH (08:49)
[2018-03-27] MEDS ORDERED: AZITHROMYCIN 250 MG TABLET PO ONE (09:00)
[2018-03-27] MEDS ORDERED: AZIT250T PO (09:10)
[2018-03-28] MEDS ORDERED: AZITHROMYCIN 250 MG TABLET PO SCH (09:00)
== END 2018-03-27 11:00 | disposition home or self-care (01) | DRG 885 ==
LOC: B2X 19:12
PROVIDERS: ADMIT Psychiatry & Neurology Psychiatry; ATTEND Psychiatry & Neurology Psychiatry
DX: F29 Unspecified psychosis not due to a substance or known physiological condition (principal); J44.0 Chronic obstructive pulmonary disease with (acute) lower respiratory infection; R45.851 Suicidal ideations; F31.9 Bipolar disorder, unspecified; G47.00 Insomnia, unspecified; F41.9 Anxiety disorder, unspecified; K59.00 Constipation, unspecified; K21.9 Gastro-esophageal reflux disease without esophagitis; E78.5 Hyperlipidemia, unspecified; F12.90 Cannabis use, unspecified, uncomplicated; E87.5 Hyperkalemia; E66.9 Obesity, unspecified; J30.9 Allergic rhinitis, unspecified; J20.9 Acute bronchitis, unspecified; L30.9 Dermatitis, unspecified; Z91.19 Patient's noncompliance with other medical treatment and regimen
CPT/HCPCS: 80307; 83036; 84439; 84443; 87081

== ENCOUNTER 2018-07-10 11:52 | Inpatient (IN) | payer MEDICARE, MEDICAID ==
[~2018-07-10] VITALS: Ht 167.6 cm; Wt 84.8 kg
[~2018-07-10 11:52] MED LIST changes: +AZIT250T PO; +BENZ1TAB10 PO; -DIVA500T52 PO; +FLUT16H NASAL; +HYDR28.35 TP; -NALT50TA PO; +NYST15PO3 TP; +QUET200T PO; -QUET200T29 PO; -THIA100T67 PO; +VITA400T9 PO
[2018-07-10 12:39] VITALS: BP 142/82
[2018-07-10] MEDS ORDERED: QUEtiapine FUMARATE 100 MG TABLET PO PRN (12:45)
[2018-07-10] MEDS ORDERED: PROMETHAZINE HCL 25 MG TABLET PO PRN (12:45)
[2018-07-10] MEDS ORDERED: MAGNESIUM HYDROXIDE SUSPENSION 30 ML UDCUP PO PRN (12:45)
[2018-07-10] MEDS ORDERED: LORazepam 2 MG TABLET PO PRN (12:45)
[2018-07-10] MEDS ORDERED: ZOLPIDEM TARTRATE 10 MG TABLET PO PRN (12:45)
[2018-07-10] MEDS ORDERED: LOPERAMIDE HCL 2 MG CAPSULE PO PRN (12:45)
[2018-07-10] MEDS ORDERED: MAG HYDROX/AL HYDROX/SIMETH ES 30 ML SUSPENSION UDCUP PO PRN (12:45)
[2018-07-10] MEDS ORDERED: ACETAMINOPHEN 325 MG TABLET PO PRN (12:45)
[2018-07-10] MEDS ORDERED: GuaiFENesin/D-METHORPHAN [SUGAR-FREE] 200-20MG/10 ML SYRUP UDCUP PO PRN (12:45)
[2018-07-10] MEDS ORDERED: GABA-533 PO (13:16)
[2018-07-10] MEDS ORDERED: PERMETHRIN 5% 60 GM CREAM TP ONE (14:00)
[2018-07-10 16:02] VITALS: BP 115/86
[2018-07-10] MEDS: GABAPENTIN 400 MG CAPSULE PO SCH (16:30)
[2018-07-10] MEDS: THIAMINE HCL 100 MG TABLET PO SCH (16:30)
[2018-07-10] MEDS: HydrOXYzine PAMOATE 25 MG CAPSULE PO SCH (16:31)
[2018-07-10] MEDS: QUEtiapine FUMARATE 200 MG TABLET PO SCH (20:28)
[2018-07-10] MEDS: BENZTROPINE MESYLATE 1 MG TABLET PO SCH (20:28)
[2018-07-11 06:06] VITALS: BP 120/68
[2018-07-11 07:46] LABS: BASOPHILS % (AUTO) 0.3 % (0.0-2.0); EOSINOPHILS % (AUTO) 7.1 % (1.0-6.0); HEMATOCRIT 47.5 % (41-53); HEMOGLOBIN 16.3 g/dL (13.5-17.5); LYMPHOCYTES # (AUTO) 2.9 K/uL (1.0-4.8); LYMPHOCYTES % (AUTO) 35.1 % (22.0-44.0); MEAN CORPUSCULAR HEMOGLOBIN 29.4 pg (26.0-34.0); MEAN CORPUSCULAR HGB CONC 34.2 G/dL (31.0-37.0); MEAN CORPUSCULAR VOLUME 86 fL (80-100); MONOCYTES # (AUTO) 0.7 K/uL (0.1-1.0); MONOCYTES % (AUTO) 8.4 % (2.0-9.0); NEUTROPHILS % (AUTO) 49.1 % (40.0-70.0); PLATELET COUNT (AUTO) 350 K/uL (150-450); RED BLOOD CELL COUNT(AUTO) 5.52 MIL/uL (4.50-5.90); RED CELL DISTRIBUTION WIDTH 13.7 % (11.5-14.5)
[2018-07-11 08:09] LABS: HEMOGLOBIN A1C 5.3 % (4.5-6.2)
[2018-07-11 08:13] LABS: ALANINE AMINOTRANSFERASE 42 U/L (12-78); ALBUMIN 3.3 g/dL (3.4-5.0); ALKALINE PHOSPHATASE 76 U/L (46-116); ANION GAP 3 mmol/L (8-16); ASPARTATE AMINOTRANSFERASE 27 U/L (15-37); BILIRUBIN,TOTAL 0.2 mg/dL (0.1-1.0); CARBON DIOXIDE 33 mmol/L (22-29); CHLORIDE 106 mmol/L (98-107); CHOL/HDL RATIO 4.8 (4.2-7.3); CHOLESTEROL 182 mg/dL (131-200); CREATININE 1.11 mg/dL (0.60-1.30); FREE T4 (FREE THYROXINE) 0.82 ng/dL (0.76-1.46); GLOMERULAR FILTR. RATE CALC > 60 mL/min (>60); GLUCOSE,RANDOM 61 mg/dL (70-110); HDL CHOLESTEROL 38 mg/dL (40-60); LDL CHOL (CALC.) 114 mg/dL (0-130); SODIUM SERUM 142 mmol/L (136-145); THYROID STIMULATING HORMONE 0.96 uIU/mL (0.36-3.74); TRIGLYCERIDES 152 mg/dL (15-150); UREA NITROGEN, BLOOD 14 mg/dL (7-18)
[2018-07-11 08:23] VITALS: BP 111/76
[2018-07-11] MEDS: HydrOXYzine PAMOATE 25 MG CAPSULE PO SCH ×3 (08:46→16:33)
[2018-07-11] MEDS: DOCUSATE SODIUM 100 MG CAPSULE PO SCH ×2 (08:46→16:33)
[2018-07-11] MEDS: THIAMINE HCL 100 MG TABLET PO SCH ×2 (08:46→16:33)
[2018-07-11] MEDS: VITAMIN E 400 UNITS CAPSULE PO SCH (08:46)
[2018-07-11] MEDS: GABAPENTIN 400 MG CAPSULE PO SCH ×3 (08:46→16:33)
[2018-07-11] MEDS: OMEGA-3/DHA/EPA/FISH OIL 1,000 MG CAPSULE PO SCH (08:46)
[2018-07-11] MEDS: MULTIVITAMINS WITH MINERALS, THERAPEUTIC TABLET PO SCH (08:47)
[2018-07-11] MEDS: OMEPRAZOLE 20 MG CAPSULE PO SCH (08:47)
[2018-07-11] MEDS: FOLIC ACID 1 MG TABLET PO SCH (08:47)
[2018-07-11] MEDS: FLUTICASONE PROPIONATE 50 MCG/SPRAY 16 GM NASAL SPRAY NASAL SCH (08:54)
[2018-07-11] MEDS: HydrOXYzine PAMOATE 50 MG CAPSULE PO PRN (14:00)
[2018-07-11 16:15] VITALS: BP 118/68
[2018-07-11] MEDS: QUEtiapine FUMARATE 200 MG TABLET PO SCH (20:36)
[2018-07-11] MEDS: ROSUVASTATIN CALCIUM 10 MG TABLET PO SCH (20:37)
[2018-07-11] MEDS: BENZTROPINE MESYLATE 1 MG TABLET PO SCH (20:37)
[2018-07-12 01:51] VITALS: BP 101/69
[2018-07-12 08:04] VITALS: BP 112/62
[2018-07-12 08:59] LABS: AMPHET/METH SCREEN,URINE NEGATIVE (NEGATIVE); BARBITURATE SCREEN, URINE NEGATIVE (NEGATIVE); BENZODIAZEPINES SCREEN,URINE NEGATIVE (NEGATIVE); CANNABINOID SCREEN,URINE NEGATIVE (NEGATIVE); COCAINE SCREEN,URINE NEGATIVE (NEGATIVE); METHADONE SCREEN, URINE NEGATIVE (NEGATIVE); OPIATE SCREEN,URINE NEGATIVE (NEGATIVE)
[2018-07-12] MEDS: FLUTICASONE PROPIONATE 50 MCG/SPRAY 16 GM NASAL SPRAY NASAL SCH (09:00)
[2018-07-12 09:07] LABS: PHENCYCLIDINE SCREEN,URINE NEGATIVE (NEGATIVE)
[2018-07-12] MEDS: THIAMINE HCL 100 MG TABLET PO SCH ×2 (09:11→16:32)
[2018-07-12] MEDS: OMEGA-3/DHA/EPA/FISH OIL 1,000 MG CAPSULE PO SCH (09:11)
[2018-07-12] MEDS: MULTIVITAMINS WITH MINERALS, THERAPEUTIC TABLET PO SCH (09:11)
[2018-07-12] MEDS: DOCUSATE SODIUM 100 MG CAPSULE PO SCH ×2 (09:11→16:32)
[2018-07-12] MEDS: GABAPENTIN 400 MG CAPSULE PO SCH ×3 (09:11→16:32)
[2018-07-12] MEDS: OMEPRAZOLE 20 MG CAPSULE PO SCH (09:12)
[2018-07-12] MEDS: FOLIC ACID 1 MG TABLET PO SCH (09:12)
[2018-07-12] MEDS: HydrOXYzine PAMOATE 25 MG CAPSULE PO SCH ×3 (09:12→16:32)
[2018-07-12] MEDS: VITAMIN E 400 UNITS CAPSULE PO SCH (09:12)
[2018-07-12] MEDS: HydrOXYzine PAMOATE 50 MG CAPSULE PO PRN (14:54)
[2018-07-12 16:01] VITALS: BP 109/69
[2018-07-12] MEDS: QUEtiapine FUMARATE 200 MG TABLET PO SCH (20:28)
[2018-07-12] MEDS: BENZTROPINE MESYLATE 1 MG TABLET PO SCH (20:28)
[2018-07-12] MEDS: ROSUVASTATIN CALCIUM 10 MG TABLET PO SCH (20:28)
[2018-07-13 02:09] VITALS: BP 121/70
[2018-07-13] MEDS: HydrOXYzine PAMOATE 25 MG CAPSULE PO SCH ×3 (08:04→16:29)
[2018-07-13] MEDS: MULTIVITAMINS WITH MINERALS, THERAPEUTIC TABLET PO SCH (08:04)
[2018-07-13] MEDS: OMEPRAZOLE 20 MG CAPSULE PO SCH (08:04)
[2018-07-13] MEDS: THIAMINE HCL 100 MG TABLET PO SCH ×2 (08:05→16:29)
[2018-07-13] MEDS: GABAPENTIN 400 MG CAPSULE PO SCH ×3 (08:05→16:29)
[2018-07-13] MEDS: DOCUSATE SODIUM 100 MG CAPSULE PO SCH ×2 (08:05→16:29)
[2018-07-13] MEDS: FOLIC ACID 1 MG TABLET PO SCH (08:05)
[2018-07-13] MEDS: VITAMIN E 400 UNITS CAPSULE PO SCH (08:10)
[2018-07-13] MEDS: FLUTICASONE PROPIONATE 50 MCG/SPRAY 16 GM NASAL SPRAY NASAL SCH (08:13)
[2018-07-13 08:20] VITALS: BP 108/65
[2018-07-13] MEDS: OMEGA-3/DHA/EPA/FISH OIL 1,000 MG CAPSULE PO SCH (09:03)
[2018-07-13 16:01] VITALS: BP 103/81
[2018-07-13] MEDS: QUEtiapine FUMARATE 300 MG TABLET PO SCH (20:35)
[2018-07-13] MEDS: BENZTROPINE MESYLATE 1 MG TABLET PO SCH (20:35)
[2018-07-13] MEDS: ROSUVASTATIN CALCIUM 10 MG TABLET PO SCH (20:35)
[2018-07-14 02:23] VITALS: BP 117/72
[2018-07-14 08:04] VITALS: BP 117/71
[2018-07-14] MEDS: DOCUSATE SODIUM 100 MG CAPSULE PO SCH ×2 (08:43→16:12)
[2018-07-14] MEDS: VITAMIN E 400 UNITS CAPSULE PO SCH (08:43)
[2018-07-14] MEDS: MULTIVITAMINS WITH MINERALS, THERAPEUTIC TABLET PO SCH (08:43)
[2018-07-14] MEDS: OMEPRAZOLE 20 MG CAPSULE PO SCH (08:43)
[2018-07-14] MEDS: GABAPENTIN 400 MG CAPSULE PO SCH ×3 (08:43→16:12)
[2018-07-14] MEDS: HydrOXYzine PAMOATE 25 MG CAPSULE PO SCH ×3 (08:43→16:12)
[2018-07-14] MEDS: FOLIC ACID 1 MG TABLET PO SCH (08:43)
[2018-07-14] MEDS: OMEGA-3/DHA/EPA/FISH OIL 1,000 MG CAPSULE PO SCH (08:43)
[2018-07-14] MEDS: THIAMINE HCL 100 MG TABLET PO SCH ×2 (08:43→16:12)
[2018-07-14 16:00] VITALS: BP 123/75
[2018-07-14] MEDS: QUEtiapine FUMARATE 300 MG TABLET PO SCH (20:23)
[2018-07-14] MEDS: ROSUVASTATIN CALCIUM 10 MG TABLET PO SCH (20:23)
[2018-07-14] MEDS: BENZTROPINE MESYLATE 1 MG TABLET PO SCH (20:23)
[2018-07-15 05:12] VITALS: BP 126/70
[2018-07-15 08:23] VITALS: BP 109/74
[2018-07-15] MEDS: MULTIVITAMINS WITH MINERALS, THERAPEUTIC TABLET PO SCH (08:45)
[2018-07-15] MEDS: THIAMINE HCL 100 MG TABLET PO SCH ×2 (08:45→16:40)
[2018-07-15] MEDS: VITAMIN E 400 UNITS CAPSULE PO SCH (08:45)
[2018-07-15] MEDS: DOCUSATE SODIUM 100 MG CAPSULE PO SCH ×2 (08:45→16:40)
[2018-07-15] MEDS: OMEGA-3/DHA/EPA/FISH OIL 1,000 MG CAPSULE PO SCH (08:45)
[2018-07-15] MEDS: HydrOXYzine PAMOATE 25 MG CAPSULE PO SCH ×3 (08:46→16:40)
[2018-07-15] MEDS: OMEPRAZOLE 20 MG CAPSULE PO SCH (08:46)
[2018-07-15] MEDS: FOLIC ACID 1 MG TABLET PO SCH (08:46)
[2018-07-15] MEDS: GABAPENTIN 400 MG CAPSULE PO SCH ×3 (08:46→16:41)
[2018-07-15 16:20] VITALS: BP 108/73
[2018-07-15] MEDS: ROSUVASTATIN CALCIUM 10 MG TABLET PO SCH (20:30)
[2018-07-15] MEDS: QUEtiapine FUMARATE 300 MG TABLET PO SCH (20:30)
[2018-07-15] MEDS: BENZTROPINE MESYLATE 1 MG TABLET PO SCH (20:30)
[2018-07-16 00:30] VITALS: BP 120/86
[2018-07-16 08:29] VITALS: BP 112/67
[2018-07-16] MEDS: THIAMINE HCL 100 MG TABLET PO SCH ×2 (08:37→16:31)
[2018-07-16] MEDS: OMEGA-3/DHA/EPA/FISH OIL 1,000 MG CAPSULE PO SCH (08:37)
[2018-07-16] MEDS: VITAMIN E 400 UNITS CAPSULE PO SCH (08:37)
[2018-07-16] MEDS: MULTIVITAMINS WITH MINERALS, THERAPEUTIC TABLET PO SCH (08:37)
[2018-07-16] MEDS: HydrOXYzine PAMOATE 25 MG CAPSULE PO SCH ×3 (08:37→16:31)
[2018-07-16] MEDS: FOLIC ACID 1 MG TABLET PO SCH (08:37)
[2018-07-16] MEDS: OMEPRAZOLE 20 MG CAPSULE PO SCH (08:37)
[2018-07-16] MEDS: DOCUSATE SODIUM 100 MG CAPSULE PO SCH ×2 (08:37→16:31)
[2018-07-16] MEDS: GABAPENTIN 400 MG CAPSULE PO SCH ×3 (08:37→16:31)
[2018-07-16 16:09] VITALS: BP 127/80
[2018-07-16] MEDS: QUEtiapine FUMARATE 300 MG TABLET PO SCH (20:31)
[2018-07-16] MEDS: BENZTROPINE MESYLATE 1 MG TABLET PO SCH (20:31)
[2018-07-16] MEDS: ROSUVASTATIN CALCIUM 10 MG TABLET PO SCH (20:32)
[2018-07-17 01:32] VITALS: BP 121/68
[2018-07-17 08:20] VITALS: BP 110/71
[2018-07-17] MEDS: FOLIC ACID 1 MG TABLET PO SCH (08:50)
[2018-07-17] MEDS: OMEGA-3/DHA/EPA/FISH OIL 1,000 MG CAPSULE PO SCH (08:50)
[2018-07-17] MEDS: MULTIVITAMINS WITH MINERALS, THERAPEUTIC TABLET PO SCH (08:50)
[2018-07-17] MEDS: OMEPRAZOLE 20 MG CAPSULE PO SCH (08:50)
[2018-07-17] MEDS: DOCUSATE SODIUM 100 MG CAPSULE PO SCH ×2 (08:51→16:29)
[2018-07-17] MEDS: VITAMIN E 400 UNITS CAPSULE PO SCH (08:51)
[2018-07-17] MEDS: GABAPENTIN 400 MG CAPSULE PO SCH ×3 (08:51→16:30)
[2018-07-17] MEDS: THIAMINE HCL 100 MG TABLET PO SCH ×2 (08:51→16:29)
[2018-07-17] MEDS: HydrOXYzine PAMOATE 25 MG CAPSULE PO SCH ×3 (08:51→16:30)
[2018-07-17 15:56] VITALS: BP 113/70
[2018-07-17] MEDS ORDERED: QUEtiapine FUMARATE 100 MG TABLET PO PRN (16:45)
[2018-07-17 16:52] VITALS: BP 113/70
[2018-07-17] MEDS: QUEtiapine FUMARATE 25 MG TABLET PO SCH (20:29)
[2018-07-17] MEDS: QUEtiapine FUMARATE 300 MG TABLET PO SCH (20:29)
[2018-07-17] MEDS: ROSUVASTATIN CALCIUM 10 MG TABLET PO SCH (20:29)
[2018-07-17] MEDS: BENZTROPINE MESYLATE 1 MG TABLET PO SCH (20:30)
[2018-07-17] MEDS ORDERED: QUEtiapine FUMARATE 300 MG TABLET PO SCH (21:00)
[2018-07-18 00:38] VITALS: BP 120/81
[2018-07-18 08:06] VITALS: BP 118/68
[2018-07-18] MEDS: OMEPRAZOLE 20 MG CAPSULE PO SCH (08:35)
[2018-07-18] MEDS: VITAMIN E 400 UNITS CAPSULE PO SCH (08:35)
[2018-07-18] MEDS: HydrOXYzine PAMOATE 25 MG CAPSULE PO SCH ×3 (08:35→16:35)
[2018-07-18] MEDS: MULTIVITAMINS WITH MINERALS, THERAPEUTIC TABLET PO SCH (08:35)
[2018-07-18] MEDS: FOLIC ACID 1 MG TABLET PO SCH (08:35)
[2018-07-18] MEDS: OMEGA-3/DHA/EPA/FISH OIL 1,000 MG CAPSULE PO SCH (08:35)
[2018-07-18] MEDS: DOCUSATE SODIUM 100 MG CAPSULE PO SCH ×2 (08:35→16:34)
[2018-07-18] MEDS: THIAMINE HCL 100 MG TABLET PO SCH ×2 (08:35→16:34)
[2018-07-18] MEDS: GABAPENTIN 400 MG CAPSULE PO SCH ×3 (08:36→16:35)
[2018-07-18 16:03] VITALS: BP 126/83
[2018-07-18] MEDS: QUEtiapine FUMARATE 300 MG TABLET PO SCH (20:29)
[2018-07-18] MEDS: QUEtiapine FUMARATE 25 MG TABLET PO SCH (20:29)
[2018-07-18] MEDS: BENZTROPINE MESYLATE 1 MG TABLET PO SCH (20:29)
[2018-07-18] MEDS: ROSUVASTATIN CALCIUM 10 MG TABLET PO SCH (20:30)
[2018-07-19 03:21] VITALS: BP 120/78
[2018-07-19 08:19] VITALS: BP 113/76
[2018-07-19] MEDS: THIAMINE HCL 100 MG TABLET PO SCH ×2 (08:52→16:19)
[2018-07-19] MEDS: VITAMIN E 400 UNITS CAPSULE PO SCH (08:52)
[2018-07-19] MEDS: MULTIVITAMINS WITH MINERALS, THERAPEUTIC TABLET PO SCH (08:52)
[2018-07-19] MEDS: FOLIC ACID 1 MG TABLET PO SCH (08:53)
[2018-07-19] MEDS: HydrOXYzine PAMOATE 25 MG CAPSULE PO SCH ×3 (08:53→16:19)
[2018-07-19] MEDS: OMEGA-3/DHA/EPA/FISH OIL 1,000 MG CAPSULE PO SCH (08:53)
[2018-07-19] MEDS: DOCUSATE SODIUM 100 MG CAPSULE PO SCH ×2 (08:53→16:20)
[2018-07-19] MEDS: OMEPRAZOLE 20 MG CAPSULE PO SCH (08:53)
[2018-07-19] MEDS: GABAPENTIN 400 MG CAPSULE PO SCH ×3 (08:53→16:19)
[2018-07-19] MEDS ORDERED: BISACODYL 5 MG EC TABLET PO PRN (10:00)
[2018-07-19 16:00] VITALS: BP 127/75
[2018-07-19] MEDS: QUEtiapine FUMARATE 25 MG TABLET PO SCH (21:02)
[2018-07-19] MEDS: QUEtiapine FUMARATE 300 MG TABLET PO SCH (21:02)
[2018-07-19] MEDS: ROSUVASTATIN CALCIUM 10 MG TABLET PO SCH (21:02)
[2018-07-19] MEDS: BENZTROPINE MESYLATE 1 MG TABLET PO SCH (21:02)
[2018-07-20 00:30] VITALS: BP 109/63
[2018-07-20 08:02] VITALS: BP 103/68
[2018-07-20] MEDS: OMEGA-3/DHA/EPA/FISH OIL 1,000 MG CAPSULE PO SCH (08:34)
[2018-07-20] MEDS: THIAMINE HCL 100 MG TABLET PO SCH (08:34)
[2018-07-20] MEDS: GABAPENTIN 400 MG CAPSULE PO SCH ×3 (08:34→16:48)
[2018-07-20] MEDS: FOLIC ACID 1 MG TABLET PO SCH (08:34)
[2018-07-20] MEDS: HydrOXYzine PAMOATE 25 MG CAPSULE PO SCH ×3 (08:34→16:48)
[2018-07-20] MEDS: DOCUSATE SODIUM 100 MG CAPSULE PO SCH ×2 (08:34→16:48)
[2018-07-20] MEDS: VITAMIN E 400 UNITS CAPSULE PO SCH (08:34)
[2018-07-20] MEDS: OMEPRAZOLE 20 MG CAPSULE PO SCH (08:35)
[2018-07-20] MEDS: MULTIVITAMINS WITH MINERALS, THERAPEUTIC TABLET PO SCH (08:35)
[2018-07-20] MEDS ORDERED: QUET300T18 PO (12:18)
[2018-07-20] MEDS ORDERED: OMEG-135 PO (12:18)
[2018-07-20] MEDS ORDERED: QUET25TA34 PO (12:18)
[2018-07-20] MEDS ORDERED: HYD25 PO (12:18)
[2018-07-20] MEDS ORDERED: GABA-533 PO (12:18)
[2018-07-20] MEDS ORDERED: BENZ1TAB10 PO (12:18)
[2018-07-20] MEDS ORDERED: NALT50TA PO (12:19)
[2018-07-20 16:01] VITALS: BP 117/77
[2018-07-20] MEDS: ROSUVASTATIN CALCIUM 10 MG TABLET PO SCH (20:32)
[2018-07-20] MEDS: QUEtiapine FUMARATE 25 MG TABLET PO SCH (20:32)
[2018-07-20] MEDS: BENZTROPINE MESYLATE 1 MG TABLET PO SCH (20:32)
[2018-07-20] MEDS: QUEtiapine FUMARATE 300 MG TABLET PO SCH (20:32)
[2018-07-21] MEDS ORDERED: NALT50TA6 PO (02:47)
[2018-07-21] MEDS ORDERED: QUET25TA34 PO (02:47)
[2018-07-21] MEDS ORDERED: MULT-1239 PO (02:47)
[2018-07-21] MEDS ORDERED: HYD25 PO (02:47)
[2018-07-21 05:52] VITALS: BP 120/86
[2018-07-21 08:13] VITALS: BP 100/60
[2018-07-21] MEDS: DOCUSATE SODIUM 100 MG CAPSULE PO SCH (08:16)
[2018-07-21] MEDS: HydrOXYzine PAMOATE 25 MG CAPSULE PO SCH (08:16)
[2018-07-21] MEDS: OMEPRAZOLE 20 MG CAPSULE PO SCH (08:16)
[2018-07-21] MEDS: OMEGA-3/DHA/EPA/FISH OIL 1,000 MG CAPSULE PO SCH (08:16)
[2018-07-21] MEDS: MULTIVITAMINS WITH MINERALS, THERAPEUTIC TABLET PO SCH (08:16)
[2018-07-21] MEDS: GABAPENTIN 400 MG CAPSULE PO SCH (08:17)
[2018-07-21] MEDS: VITAMIN E 400 UNITS CAPSULE PO SCH (08:17)
[2018-07-21] MEDS ORDERED: NALTREXONE HCL 50 MG TABLET PO SCH (09:00)
== END 2018-07-21 09:55 | disposition home or self-care (01) | DRG 885 ==
LOC: B2X 12:54
PROVIDERS: ADMIT Psychiatry & Neurology Psychiatry; ATTEND Psychiatry & Neurology Psychiatry
DX: F25.0 Schizoaffective disorder, bipolar type (principal); F70 Mild intellectual disabilities; R45.851 Suicidal ideations; K59.00 Constipation, unspecified; E78.5 Hyperlipidemia, unspecified; K21.9 Gastro-esophageal reflux disease without esophagitis; B86 Scabies; J30.9 Allergic rhinitis, unspecified; E78.1 Pure hyperglyceridemia; J44.9 Chronic obstructive pulmonary disease, unspecified; G47.00 Insomnia, unspecified; F17.210 Nicotine dependence, cigarettes, uncomplicated; F12.20 Cannabis dependence, uncomplicated; L29.9 Pruritus, unspecified; Z90.89 Acquired absence of other organs; Z91.14 Patient's other noncompliance with medication regimen; Z91.030 Bee allergy status; Z91.19 Patient's noncompliance with other medical treatment and regimen; Z80.9 Family history of malignant neoplasm, unspecified
CPT/HCPCS: 80307; 83036; 84439; 84443; 86592; 87081

== ENCOUNTER 2018-09-29 16:29 | Inpatient (IN) | payer MEDICARE, MEDICAID ==
[~2018-09-29] VITALS: Ht 170.2 cm; Wt 83.9 kg
[~2018-09-29 16:29] MED LIST changes: -AZIT250T PO; -FLUT16H NASAL; -GABA-531 PO; +GABA-533 PO; +HYD25 PO; -HYDR-4031 PO; -HYDR28.35 TP; +MULT-1239 PO; +NALT50TA PO; -NYST15PO3 TP; -QUET200T PO; +QUET25TA34 PO; +QUET300T18 PO
[2018-09-29 17:29] VITALS: BP 111/79
[2018-09-29] MEDS ORDERED: QUEtiapine FUMARATE 100 MG TABLET PO PRN (17:45)
[2018-09-29] MEDS ORDERED: ZOLPIDEM TARTRATE 5 MG TABLET PO PRN (17:45)
[2018-09-29] MEDS ORDERED: QUET300T2 PO (18:18)
[2018-09-29] MEDS ORDERED: GABA-533 PO (18:18)
[2018-09-29] MEDS ORDERED: OMEG-12 PO (18:18)
[2018-09-29] MEDS ORDERED: TRIH5TAB2 PO (18:19)
[2018-09-29] MEDS: GABAPENTIN 300 MG CAPSULE PO SCH (19:45)
[2018-09-29 20:18] VITALS: BP 138/89
[2018-09-29] MEDS: QUEtiapine FUMARATE 300 MG TABLET PO SCH (20:32)
[2018-09-29] MEDS ORDERED: TRIHEXYPHENIDYL HCL 5 MG TABLET PO SCH (21:00)
[2018-09-29] MEDS: ROSUVASTATIN CALCIUM 10 MG TABLET PO SCH (21:30)
[2018-09-30 01:15] VITALS: BP 117/84
[2018-09-30 07:20] LABS: BASOPHILS % (AUTO) 0.4 % (0.0-2.0); EOSINOPHILS % (AUTO) 5.4 % (1.0-6.0); HEMATOCRIT 42.5 % (41-53); HEMOGLOBIN 15.5 g/dL (13.5-17.5); LYMPHOCYTES # (AUTO) 3.2 K/uL (1.0-4.8); LYMPHOCYTES % (AUTO) 38.9 % (22.0-44.0); MEAN CORPUSCULAR HEMOGLOBIN 30.5 pg (26.0-34.0); MEAN CORPUSCULAR HGB CONC 36.4 G/dL (31.0-37.0); MEAN CORPUSCULAR VOLUME 84 fL (80-100); MONOCYTES # (AUTO) 0.7 K/uL (0.1-1.0); MONOCYTES % (AUTO) 8.6 % (2.0-9.0); NEUTROPHILS # (AUTO) 3.8 K/uL (1.8-7.7); NEUTROPHILS % (AUTO) 46.7 % (40.0-70.0); PLATELET COUNT (AUTO) 375 K/uL (150-450); RED BLOOD CELL COUNT(AUTO) 5.08 MIL/uL (4.50-5.90); RED CELL DISTRIBUTION WIDTH 13.5 % (11.5-14.5)
[2018-09-30 07:38] LABS: AMPHET/METH SCREEN,URINE NEGATIVE (NEGATIVE); BARBITURATE SCREEN, URINE NEGATIVE (NEGATIVE); BENZODIAZEPINES SCREEN,URINE NEGATIVE (NEGATIVE); CANNABINOID SCREEN,URINE NEGATIVE (NEGATIVE); COCAINE SCREEN,URINE NEGATIVE (NEGATIVE); METHADONE SCREEN, URINE NEGATIVE (NEGATIVE); OPIATE SCREEN,URINE NEGATIVE (NEGATIVE)
[2018-09-30 07:39] LABS: BILIRUBIN,URINE NEGATIVE (NEGATIVE); GLUCOSE, URINE (UA) NEGATIVE (NEGATIVE); KETONES,URINE NEGATIVE (NEGATIVE); LEUKOCYTE ESTERASE ,URINE NEGATIVE (NEGATIVE); NITRATE,URINE NEGATIVE (NEGATIVE); OCCULT BLOOD,URINE NEGATIVE (NEGATIVE); PROTEIN,URINE NEGATIVE (NEGATIVE); UROBILINOGEN,URINE 0.2 mg/dL (<=1.0)
[2018-09-30 07:41] LABS: PHENCYCLIDINE SCREEN,URINE NEGATIVE (NEGATIVE)
[2018-09-30 07:49] LABS: APPEARANCE,URINE HAZY (CLEAR)
[2018-09-30 07:50] LABS: HEMOGLOBIN A1C 5.6 % (4.5-6.2)
[2018-09-30 07:59] LABS: ALANINE AMINOTRANSFERASE 36 U/L (12-78); ALBUMIN 3.4 g/dL (3.4-5.0); ALKALINE PHOSPHATASE 98 U/L (46-116); ANION GAP 4 mmol/L (8-16); ASPARTATE AMINOTRANSFERASE 20 U/L (15-37); BILIRUBIN,TOTAL 0.3 mg/dL (0.1-1.0); CARBON DIOXIDE 31 mmol/L (22-29); CHLORIDE 103 mmol/L (98-107); CHOL/HDL RATIO 5.2 (4.2-7.3); CHOLESTEROL 181 mg/dL (131-200); CREATININE 1.02 mg/dL (0.60-1.30); FREE T4 (FREE THYROXINE) 0.96 ng/dL (0.76-1.46); GLOMERULAR FILTR. RATE CALC > 60 mL/min (>60); GLUCOSE,RANDOM 84 mg/dL (70-110); HDL CHOLESTEROL 35 mg/dL (40-60); LDL CHOL (CALC.) 120 mg/dL (0-130); POTASSIUM 4.8 mmol/L (3.5-5.1); SODIUM SERUM 138 mmol/L (136-145); THYROID STIMULATING HORMONE 0.94 uIU/mL (0.36-3.74); TOTAL PROTEIN, SERUM 6.7 g/dL (6.4-8.2); TRIGLYCERIDES 131 mg/dL (15-150); UREA NITROGEN, BLOOD 18 mg/dL (7-18)
[2018-09-30 08:04] VITALS: BP 115/78
[2018-09-30] MEDS: OMEGA-3/DHA/EPA/FISH OIL 1,000 MG CAPSULE PO SCH (08:50)
[2018-09-30] MEDS: VITAMIN E 400 UNITS CAPSULE PO SCH (08:50)
[2018-09-30] MEDS: OMEPRAZOLE 20 MG CAPSULE PO SCH (08:50)
[2018-09-30] MEDS: MULTIVITAMINS WITH MINERALS, THERAPEUTIC TABLET PO SCH (08:50)
[2018-09-30] MEDS: GABAPENTIN 300 MG CAPSULE PO SCH ×3 (08:50→16:46)
[2018-09-30] MEDS: DOCUSATE SODIUM 100 MG CAPSULE PO SCH ×2 (08:50→16:46)
[2018-09-30 16:01] VITALS: BP 115/79
[2018-09-30] MEDS: QUEtiapine FUMARATE 300 MG TABLET PO SCH (21:55)
[2018-09-30] MEDS: TRIHEXYPHENIDYL HCL 5 MG TABLET PO SCH (21:55)
[2018-09-30] MEDS: ROSUVASTATIN CALCIUM 10 MG TABLET PO SCH (21:55)
[2018-10-01 00:01] VITALS: BP 124/68
[2018-10-01] MEDS: OMEPRAZOLE 20 MG CAPSULE PO SCH (08:12)
[2018-10-01] MEDS: MULTIVITAMINS WITH MINERALS, THERAPEUTIC TABLET PO SCH (08:12)
[2018-10-01] MEDS: OMEGA-3/DHA/EPA/FISH OIL 1,000 MG CAPSULE PO SCH (08:12)
[2018-10-01] MEDS: DOCUSATE SODIUM 100 MG CAPSULE PO SCH ×2 (08:12→16:52)
[2018-10-01] MEDS: HydrOXYzine PAMOATE 50 MG CAPSULE PO SCH ×3 (08:12→16:52)
[2018-10-01] MEDS: VITAMIN E 400 UNITS CAPSULE PO SCH (08:13)
[2018-10-01] MEDS: TRIHEXYPHENIDYL HCL 5 MG TABLET PO SCH ×2 (08:13→20:51)
[2018-10-01] MEDS: GABAPENTIN 300 MG CAPSULE PO SCH ×3 (08:13→16:52)
[2018-10-01] MEDS ORDERED: PERMETHRIN 5% 60 GM CREAM TP ONE (10:30)
[2018-10-01] MEDS: GuaiFENesin/D-METHORPHAN [SUGAR-FREE] 200-20MG/10 ML SYRUP UDCUP PO SCH ×2 (13:24→16:52)
[2018-10-01 16:12] VITALS: BP 116/65
[2018-10-01] MEDS: QUEtiapine FUMARATE 300 MG TABLET PO SCH (20:51)
[2018-10-01] MEDS: ROSUVASTATIN CALCIUM 10 MG TABLET PO SCH (20:52)
[2018-10-02 02:45] VITALS: BP 102/65
[2018-10-02 08:05] VITALS: BP 106/67
[2018-10-02] MEDS: MULTIVITAMINS WITH MINERALS, THERAPEUTIC TABLET PO SCH (08:26)
[2018-10-02] MEDS: VITAMIN E 400 UNITS CAPSULE PO SCH (08:26)
[2018-10-02] MEDS: OMEGA-3/DHA/EPA/FISH OIL 1,000 MG CAPSULE PO SCH (08:26)
[2018-10-02] MEDS: OMEPRAZOLE 20 MG CAPSULE PO SCH (08:26)
[2018-10-02] MEDS: DOCUSATE SODIUM 100 MG CAPSULE PO SCH ×2 (08:26→16:42)
[2018-10-02] MEDS: TRIHEXYPHENIDYL HCL 5 MG TABLET PO SCH ×2 (08:26→20:29)
[2018-10-02] MEDS: HydrOXYzine PAMOATE 50 MG CAPSULE PO SCH ×3 (08:26→16:42)
[2018-10-02] MEDS: GABAPENTIN 300 MG CAPSULE PO SCH ×2 (08:27→12:17)
[2018-10-02] MEDS: GuaiFENesin/D-METHORPHAN [SUGAR-FREE] 200-20MG/10 ML SYRUP UDCUP PO SCH ×3 (08:27→16:41)
[2018-10-02] MEDS ORDERED: LOPERAMIDE HCL 2 MG CAPSULE PO PRN (14:45)
[2018-10-02] MEDS ORDERED: PROMETHAZINE HCL 25 MG TABLET PO PRN (14:45)
[2018-10-02] MEDS ORDERED: MAG HYDROX/AL HYDROX/SIMETH ES 30 ML SUSPENSION UDCUP PO PRN (14:45)
[2018-10-02] MEDS ORDERED: ACETAMINOPHEN 325 MG TABLET PO PRN (14:45)
[2018-10-02] MEDS ORDERED: HydrOXYzine PAMOATE 50 MG CAPSULE PO PRN (14:45)
[2018-10-02] MEDS ORDERED: MAGNESIUM HYDROXIDE SUSPENSION 30 ML UDCUP PO PRN (14:45)
[2018-10-02] MEDS ORDERED: GuaiFENesin/D-METHORPHAN [SUGAR-FREE] 200-20MG/10 ML SYRUP UDCUP PO PRN (14:45)
[2018-10-02 16:01] VITALS: BP 104/76
[2018-10-02] MEDS: GABAPENTIN 400 MG CAPSULE PO SCH (16:42)
[2018-10-02] MEDS: THIAMINE HCL 100 MG TABLET PO SCH (16:42)
[2018-10-02] MEDS: LORazepam 2 MG TABLET PO PRN (17:45)
[2018-10-02] MEDS: ROSUVASTATIN CALCIUM 10 MG TABLET PO SCH (20:29)
[2018-10-02] MEDS: QUEtiapine FUMARATE 300 MG TABLET PO SCH (20:29)
[2018-10-03 02:06] VITALS: BP 110/68
[2018-10-03] MEDS: HydrOXYzine PAMOATE 50 MG CAPSULE PO SCH ×3 (08:08→16:31)
[2018-10-03] MEDS: FOLIC ACID 1 MG TABLET PO SCH (08:08)
[2018-10-03] MEDS: MULTIVITAMINS WITH MINERALS, THERAPEUTIC TABLET PO SCH (08:08)
[2018-10-03] MEDS: VITAMIN E 400 UNITS CAPSULE PO SCH (08:08)
[2018-10-03] MEDS: OMEGA-3/DHA/EPA/FISH OIL 1,000 MG CAPSULE PO SCH (08:08)
[2018-10-03] MEDS: TRIHEXYPHENIDYL HCL 5 MG TABLET PO SCH ×3 (08:08→16:31)
[2018-10-03] MEDS: THIAMINE HCL 100 MG TABLET PO SCH ×2 (08:08→16:32)
[2018-10-03] MEDS: GABAPENTIN 400 MG CAPSULE PO SCH ×3 (08:08→16:31)
[2018-10-03] MEDS: DOCUSATE SODIUM 100 MG CAPSULE PO SCH ×2 (08:08→16:31)
[2018-10-03] MEDS: GuaiFENesin/D-METHORPHAN [SUGAR-FREE] 200-20MG/10 ML SYRUP UDCUP PO SCH ×3 (08:09→16:31)
[2018-10-03] MEDS: OMEPRAZOLE 20 MG CAPSULE PO SCH (08:09)
[2018-10-03 08:10] VITALS: BP 122/55
[2018-10-03] MEDS ORDERED: MULTIVITAMINS WITH MINERALS, THERAPEUTIC TABLET PO SCH (09:00)
[2018-10-03 16:01] VITALS: BP 117/79
[2018-10-03] MEDS: QUEtiapine FUMARATE 300 MG TABLET PO SCH (20:30)
[2018-10-03] MEDS: ROSUVASTATIN CALCIUM 10 MG TABLET PO SCH (20:30)
[2018-10-04 01:03] VITALS: BP 120/81
[2018-10-04] MEDS: DOCUSATE SODIUM 100 MG CAPSULE PO SCH ×2 (08:07→16:36)
[2018-10-04] MEDS: GABAPENTIN 400 MG CAPSULE PO SCH ×3 (08:07→16:36)
[2018-10-04] MEDS: FOLIC ACID 1 MG TABLET PO SCH (08:07)
[2018-10-04] MEDS: TRIHEXYPHENIDYL HCL 5 MG TABLET PO SCH ×4 (08:07→20:37)
[2018-10-04] MEDS: OMEGA-3/DHA/EPA/FISH OIL 1,000 MG CAPSULE PO SCH (08:07)
[2018-10-04] MEDS: MULTIVITAMINS WITH MINERALS, THERAPEUTIC TABLET PO SCH (08:07)
[2018-10-04] MEDS: OMEPRAZOLE 20 MG CAPSULE PO SCH (08:07)
[2018-10-04] MEDS: GuaiFENesin/D-METHORPHAN [SUGAR-FREE] 200-20MG/10 ML SYRUP UDCUP PO SCH ×3 (08:08→16:36)
[2018-10-04] MEDS: HydrOXYzine PAMOATE 50 MG CAPSULE PO SCH ×3 (08:08→16:36)
[2018-10-04] MEDS: VITAMIN E 400 UNITS CAPSULE PO SCH (08:08)
[2018-10-04] MEDS: THIAMINE HCL 100 MG TABLET PO SCH ×2 (08:08→16:35)
[2018-10-04 08:24] VITALS: BP 121/65
[2018-10-04] MEDS ORDERED: HYDROCORTISONE 1% 30 GM OINTMENT TP PRN (11:00)
[2018-10-04 16:00] VITALS: BP 125/67
[2018-10-04] MEDS: ROSUVASTATIN CALCIUM 10 MG TABLET PO SCH (20:37)
[2018-10-04] MEDS: QUEtiapine FUMARATE 100 MG TABLET PO SCH (20:38)
[2018-10-04] MEDS: LORazepam 2 MG TABLET PO PRN (21:24)
[2018-10-05 00:12] VITALS: BP 120/81
[2018-10-05 08:22] VITALS: BP 110/64
[2018-10-05] MEDS: VITAMIN E 400 UNITS CAPSULE PO SCH (09:16)
[2018-10-05] MEDS: OMEPRAZOLE 20 MG CAPSULE PO SCH (09:16)
[2018-10-05] MEDS: HydrOXYzine PAMOATE 50 MG CAPSULE PO SCH ×3 (09:16→16:07)
[2018-10-05] MEDS: FOLIC ACID 1 MG TABLET PO SCH (09:16)
[2018-10-05] MEDS: MULTIVITAMINS WITH MINERALS, THERAPEUTIC TABLET PO SCH (09:16)
[2018-10-05] MEDS: DOCUSATE SODIUM 100 MG CAPSULE PO SCH ×2 (09:16→16:06)
[2018-10-05] MEDS: THIAMINE HCL 100 MG TABLET PO SCH ×2 (09:16→16:07)
[2018-10-05] MEDS: OMEGA-3/DHA/EPA/FISH OIL 1,000 MG CAPSULE PO SCH (09:16)
[2018-10-05] MEDS: GuaiFENesin/D-METHORPHAN [SUGAR-FREE] 200-20MG/10 ML SYRUP UDCUP PO SCH ×3 (09:17→16:07)
[2018-10-05] MEDS: GABAPENTIN 400 MG CAPSULE PO SCH ×3 (09:17→16:06)
[2018-10-05] MEDS: TRIHEXYPHENIDYL HCL 5 MG TABLET PO SCH ×3 (09:17→20:27)
[2018-10-05] MEDS ORDERED: OMEG-135 PO (15:08)
[2018-10-05] MEDS ORDERED: QUET100T33 PO (15:08)
[2018-10-05] MEDS ORDERED: TRIH5TAB2 PO (15:08)
[2018-10-05] MEDS ORDERED: GABA-533 PO (15:08)
[2018-10-05] MEDS ORDERED: HYD50 PO (15:08)
[2018-10-05] MEDS ORDERED: ROPI1TAB11 PO (15:21)
[2018-10-05 16:03] VITALS: BP 108/83
[2018-10-05] MEDS: ROSUVASTATIN CALCIUM 10 MG TABLET PO SCH (20:27)
[2018-10-05] MEDS ORDERED: ROPINIRole HCL 1 MG TABLET PO SCH (21:00)
[2018-10-05] MEDS: QUEtiapine FUMARATE 100 MG TABLET PO SCH (21:44)
[2018-10-06 03:29] VITALS: BP 116/69
[2018-10-06] MEDS: THIAMINE HCL 100 MG TABLET PO SCH (08:14)
[2018-10-06] MEDS: MULTIVITAMINS WITH MINERALS, THERAPEUTIC TABLET PO SCH (08:15)
[2018-10-06] MEDS: TRIHEXYPHENIDYL HCL 5 MG TABLET PO SCH (08:15)
[2018-10-06] MEDS: HydrOXYzine PAMOATE 50 MG CAPSULE PO SCH (08:15)
[2018-10-06] MEDS: VITAMIN E 400 UNITS CAPSULE PO SCH (08:15)
[2018-10-06] MEDS: DOCUSATE SODIUM 100 MG CAPSULE PO SCH (08:15)
[2018-10-06] MEDS: GABAPENTIN 400 MG CAPSULE PO SCH (08:15)
[2018-10-06] MEDS: FOLIC ACID 1 MG TABLET PO SCH (08:15)
[2018-10-06] MEDS: OMEGA-3/DHA/EPA/FISH OIL 1,000 MG CAPSULE PO SCH (08:15)
[2018-10-06] MEDS: OMEPRAZOLE 20 MG CAPSULE PO SCH (08:15)
[2018-10-06] MEDS: GuaiFENesin/D-METHORPHAN [SUGAR-FREE] 200-20MG/10 ML SYRUP UDCUP PO SCH (08:16)
[2018-10-06 08:22] VITALS: BP 112/60
[2018-10-06] MEDS ORDERED: HYDR50CA10 PO (09:03)
[2018-10-06] MEDS ORDERED: ROPI1TAB11 PO (09:03)
[2018-10-06] MEDS ORDERED: GUAIF10 PO (09:03)
== END 2018-10-06 09:45 | disposition home or self-care (01) | DRG 885 ==
LOC: UNDOADMIN 17:51 → B2X 17:51
PROVIDERS: ADMIT Psychiatry & Neurology Psychiatry; ATTEND Psychiatry & Neurology Psychiatry
DX: F31.63 Bipolar disorder, current episode mixed, severe, without psychotic features (principal); F70 Mild intellectual disabilities; R45.851 Suicidal ideations; Z56.0 Unemployment, unspecified; K21.9 Gastro-esophageal reflux disease without esophagitis; E78.5 Hyperlipidemia, unspecified; F12.20 Cannabis dependence, uncomplicated; J30.9 Allergic rhinitis, unspecified; B86 Scabies; E55.9 Vitamin D deficiency, unspecified; F41.9 Anxiety disorder, unspecified; G25.81 Restless legs syndrome; G47.00 Insomnia, unspecified; K59.09 Other constipation; Z79.899 Other long term (current) drug therapy; Z80.0 Family history of malignant neoplasm of digestive organs; Z91.14 Patient's other noncompliance with medication regimen
CPT/HCPCS: 80307; 83036; 84439; 84443

== ENCOUNTER 2018-10-12 10:16 | Emergency (ER) | payer MEDICARE, OTHER ==
[~2018-10-12] VITALS: Ht 167.6 cm; Wt 84.5 kg
[~2018-10-12 10:16] MED LIST changes: -BENZ1TAB10 PO; -DSS100 PO; +GUAIF10 PO; -HYD25 PO; +HYD50 PO; +HYDR50CA10 PO; -MULT-1239 PO; -NALT50TA PO; +OMEG-12 PO; +QUET100T33 PO; -QUET25TA34 PO; -QUET300T18 PO; +QUET300T2 PO; +ROPI1TAB11 PO; +TRIH5TAB2 PO; -VITA400T9 PO
[2018-10-12 12:25] VITALS: BP 122/94
== END 2018-10-12 12:53 | disposition home or self-care (01) ==
LOC: EMS 10:19
DX: S96.912A Strain of unspecified muscle and tendon at ankle and foot level, left foot, initial encounter (principal); J44.9 Chronic obstructive pulmonary disease, unspecified; F41.9 Anxiety disorder, unspecified; F31.9 Bipolar disorder, unspecified; F20.9 Schizophrenia, unspecified; F17.210 Nicotine dependence, cigarettes, uncomplicated; F12.90 Cannabis use, unspecified, uncomplicated; F19.90 Other psychoactive substance use, unspecified, uncomplicated; Z59.0 Homelessness; X58.XXXA Exposure to other specified factors, initial encounter; Y93.89 Activity, other specified; Y92.89 Other specified places as the place of occurrence of the external cause; Y99.8 Other external cause status
CPT/HCPCS: 29515

== ENCOUNTER 2019-03-08 12:31 | Inpatient (IN) | payer MEDICARE, MEDICAID ==
[~2019-03-08] VITALS: Ht 167.6 cm; Wt 74.5 kg
[~2019-03-08 12:31] MED LIST changes: +DSS100 PO; +FOLI1TAB15 PO; -GUAIF10 PO; -HYD50 PO; -HYDR50CA10 PO; +MULT-1192 PO; +NALT50TA PO; -ROPI1TAB11 PO; -ROSU10 PO; +ROSU10TA22 PO; +THIA100T72 PO; +VITA200T8 PO
[2019-03-08] MEDS ORDERED: HYDR50CA10 PO (12:58)
[2019-03-08] MEDS ORDERED: QUET200T PO (12:58)
[2019-03-08 13:57] LABS: BASOPHILS % (AUTO) 0.3 % (0.0-2.0); EOSINOPHILS % (AUTO) 3.3 % (1.0-6.0); HEMATOCRIT 49.4 % (41-53); HEMOGLOBIN 16.6 g/dL (13.5-17.5); LYMPHOCYTES # (AUTO) 1.8 K/uL (1.0-4.8); LYMPHOCYTES % (AUTO) 25.3 % (22.0-44.0); MEAN CORPUSCULAR HEMOGLOBIN 29.6 pg (26.0-34.0); MEAN CORPUSCULAR HGB CONC 33.6 G/dL (31.0-37.0); MEAN CORPUSCULAR VOLUME 88 fL (80-100); MONOCYTES # (AUTO) 0.6 K/uL (0.1-1.0); MONOCYTES % (AUTO) 8.9 % (2.0-9.0); NEUTROPHILS # (AUTO) 4.4 K/uL (1.8-7.7); NEUTROPHILS % (AUTO) 62.2 % (40.0-70.0); PLATELET COUNT (AUTO) 387 K/uL (150-450); RED BLOOD CELL COUNT(AUTO) 5.61 MIL/uL (4.50-5.90); RED CELL DISTRIBUTION WIDTH 14.4 % (11.5-14.5)
[2019-03-08 14:08] LABS: ANION GAP 8 mmol/L (8-16); CALCIUM, TOTAL 9.8 mg/dL (8.8-10.5); CARBON DIOXIDE 30 mmol/L (22-29); CHLORIDE 104 mmol/L (98-107); CREATININE 1.02 mg/dL (0.60-1.30); GLOMERULAR FILTR. RATE CALC > 60 mL/min (>60); GLUCOSE,RANDOM 80 mg/dL (70-110); POTASSIUM 4.4 mmol/L (3.5-5.1); SODIUM SERUM 142 mmol/L (136-145); UREA NITROGEN, BLOOD 16 mg/dL (7-18)
[2019-03-08 14:13] LABS: ALANINE AMINOTRANSFERASE 44 U/L (12-78); ALBUMIN 4.1 g/dL (3.4-5.0); ALKALINE PHOSPHATASE 86 U/L (46-116); ASPARTATE AMINOTRANSFERASE 24 U/L (15-37); BILIRUBIN,TOTAL 0.5 mg/dL (0.1-1.0); TOTAL PROTEIN, SERUM 8.4 g/dL (6.4-8.2)
[2019-03-08 15:30] VITALS: BP 111/82
[2019-03-08] MEDS ORDERED: MAG HYDROX/AL HYDROX/SIMETH ES 30 ML SUSPENSION UDCUP PO PRN ×2 (15:30)
[2019-03-08] MEDS ORDERED: MAGNESIUM HYDROXIDE SUSPENSION 30 ML UDCUP PO PRN ×2 (15:30)
[2019-03-08] MEDS ORDERED: QUEtiapine FUMARATE 100 MG TABLET PO PRN (15:30)
[2019-03-08] MEDS ORDERED: ACETAMINOPHEN 325 MG TABLET PO PRN ×2 (15:30)
[2019-03-08] MEDS ORDERED: PROMETHAZINE HCL 25 MG TABLET PO PRN (15:30)
[2019-03-08] MEDS ORDERED: ZOLPIDEM TARTRATE 10 MG TABLET PO PRN (15:30)
[2019-03-08] MEDS ORDERED: LOPERAMIDE HCL 2 MG CAPSULE PO PRN ×2 (15:30)
[2019-03-08] MEDS ORDERED: GuaiFENesin/D-METHORPHAN [SUGAR-FREE] 200-20MG/10 ML SYRUP UDCUP PO PRN (15:30)
[2019-03-08] MEDS ORDERED: LORazepam 2 MG TABLET PO PRN (15:30)
[2019-03-08] MEDS ORDERED: HydrOXYzine PAMOATE 50 MG CAPSULE PO PRN (15:30)
[2019-03-08 15:49] LABS: AMPHET/METH SCREEN,URINE NEGATIVE (NEGATIVE); BARBITURATE SCREEN, URINE NEGATIVE (NEGATIVE); BENZODIAZEPINES SCREEN,URINE NEGATIVE (NEGATIVE); CANNABINOID SCREEN,URINE POSITIVE (NEGATIVE); COCAINE SCREEN,URINE NEGATIVE (NEGATIVE); METHADONE SCREEN, URINE NEGATIVE (NEGATIVE); OPIATE SCREEN,URINE NEGATIVE (NEGATIVE); PHENCYCLIDINE SCREEN,URINE NEGATIVE (NEGATIVE)
[2019-03-08] MEDS: GABAPENTIN 400 MG CAPSULE PO SCH (16:51)
[2019-03-08] MEDS ORDERED: PALIPERIDONE PALMITATE 234 MG/1.5 ML SYRINGE IM ONE (17:45)
[2019-03-08 19:50] VITALS: BP 134/80
[2019-03-08] MEDS: QUEtiapine FUMARATE 200 MG TABLET PO SCH (21:00)
[2019-03-08] MEDS: THIAMINE HCL 100 MG TABLET PO SCH (22:18)
[2019-03-09 08:10] VITALS: BP 142/84
[2019-03-09] MEDS: NALTREXONE HCL 50 MG TABLET PO SCH (09:00)
[2019-03-09] MEDS: THIAMINE HCL 100 MG TABLET PO SCH ×2 (09:09→16:16)
[2019-03-09] MEDS: GABAPENTIN 400 MG CAPSULE PO SCH ×3 (09:09→16:16)
[2019-03-09] MEDS: MULTIVITAMINS WITH MINERALS, THERAPEUTIC TABLET PO SCH (09:09)
[2019-03-09] MEDS: OMEGA-3/DHA/EPA/FISH OIL 1,000 MG CAPSULE PO SCH (09:10)
[2019-03-09] MEDS: DOCUSATE SODIUM 100 MG CAPSULE PO SCH (09:10)
[2019-03-09] MEDS: VITAMIN E 200 UNIT PO SCH (09:10)
[2019-03-09] MEDS: FOLIC ACID 1 MG TABLET PO SCH (09:10)
[2019-03-09 16:00] VITALS: BP 121/76
[2019-03-09] MEDS: TRIHEXYPHENIDYL HCL 5 MG TABLET PO SCH (17:58)
[2019-03-09] MEDS: HydrOXYzine PAMOATE 25 MG CAPSULE PO SCH (17:58)
[2019-03-09] MEDS: QUEtiapine FUMARATE 200 MG TABLET PO SCH (20:49)
[2019-03-10] MEDS: TRIHEXYPHENIDYL HCL 5 MG TABLET PO SCH ×3 (08:01→17:13)
[2019-03-10] MEDS: FOLIC ACID 1 MG TABLET PO SCH (08:01)
[2019-03-10] MEDS: MULTIVITAMINS WITH MINERALS, THERAPEUTIC TABLET PO SCH (08:01)
[2019-03-10] MEDS: VITAMIN E 200 UNIT PO SCH (08:01)
[2019-03-10] MEDS: THIAMINE HCL 100 MG TABLET PO SCH ×2 (08:01→17:13)
[2019-03-10] MEDS: DOCUSATE SODIUM 100 MG CAPSULE PO SCH (08:01)
[2019-03-10] MEDS: HydrOXYzine PAMOATE 25 MG CAPSULE PO SCH ×3 (08:01→17:13)
[2019-03-10] MEDS: GABAPENTIN 400 MG CAPSULE PO SCH ×3 (08:01→17:13)
[2019-03-10] MEDS: OMEGA-3/DHA/EPA/FISH OIL 1,000 MG CAPSULE PO SCH (08:01)
[2019-03-10] MEDS: NALTREXONE HCL 50 MG TABLET PO SCH (08:05)
[2019-03-10 08:30] VITALS: BP 126/79
[2019-03-10 16:03] VITALS: BP 111/76
[2019-03-10] MEDS: QUEtiapine FUMARATE 200 MG TABLET PO SCH (21:48)
[2019-03-11 05:17] VITALS: BP 109/67
[2019-03-11 08:06] VITALS: BP 142/79
[2019-03-11] MEDS: OMEGA-3/DHA/EPA/FISH OIL 1,000 MG CAPSULE PO SCH (08:31)
[2019-03-11] MEDS: DOCUSATE SODIUM 100 MG CAPSULE PO SCH (08:31)
[2019-03-11] MEDS: HydrOXYzine PAMOATE 25 MG CAPSULE PO SCH ×3 (08:31→16:57)
[2019-03-11] MEDS: THIAMINE HCL 100 MG TABLET PO SCH ×2 (08:31→16:57)
[2019-03-11] MEDS: MULTIVITAMINS WITH MINERALS, THERAPEUTIC TABLET PO SCH (08:32)
[2019-03-11] MEDS: VITAMIN E 200 UNIT PO SCH (08:32)
[2019-03-11] MEDS: NALTREXONE HCL 50 MG TABLET PO SCH (08:32)
[2019-03-11] MEDS: TRIHEXYPHENIDYL HCL 5 MG TABLET PO SCH ×3 (08:32→16:57)
[2019-03-11] MEDS: FOLIC ACID 1 MG TABLET PO SCH (08:32)
[2019-03-11] MEDS: GABAPENTIN 400 MG CAPSULE PO SCH ×3 (08:32→16:57)
[2019-03-11 19:18] VITALS: BP 116/85
[2019-03-11] MEDS: QUEtiapine FUMARATE 200 MG TABLET PO SCH (21:42)
[2019-03-12] MEDS: TRIHEXYPHENIDYL HCL 5 MG TABLET PO SCH ×3 (08:59→16:57)
[2019-03-12] MEDS: VITAMIN E 200 UNIT PO SCH (08:59)
[2019-03-12] MEDS: MULTIVITAMINS WITH MINERALS, THERAPEUTIC TABLET PO SCH (08:59)
[2019-03-12] MEDS: OMEGA-3/DHA/EPA/FISH OIL 1,000 MG CAPSULE PO SCH (09:00)
[2019-03-12] MEDS: THIAMINE HCL 100 MG TABLET PO SCH ×2 (09:00→16:57)
[2019-03-12] MEDS: NALTREXONE HCL 50 MG TABLET PO SCH (09:00)
[2019-03-12] MEDS: DOCUSATE SODIUM 100 MG CAPSULE PO SCH (09:00)
[2019-03-12] MEDS ORDERED: PALIPERIDONE PALMITATE 156 MG/ML SYRINGE IM ONE (09:00)
[2019-03-12] MEDS: GABAPENTIN 400 MG CAPSULE PO SCH ×3 (09:00→16:57)
[2019-03-12] MEDS: HydrOXYzine PAMOATE 25 MG CAPSULE PO SCH ×3 (09:00→16:57)
[2019-03-12] MEDS: FOLIC ACID 1 MG TABLET PO SCH (09:00)
[2019-03-12 09:26] VITALS: BP 126/63
[2019-03-12 17:16] VITALS: BP 117/71
[2019-03-12] MEDS: QUEtiapine FUMARATE 200 MG TABLET PO SCH (21:39)
[2019-03-13 08:46] VITALS: BP 123/75
[2019-03-13] MEDS: NALTREXONE HCL 50 MG TABLET PO SCH (08:46)
[2019-03-13] MEDS: DOCUSATE SODIUM 100 MG CAPSULE PO SCH (08:46)
[2019-03-13] MEDS: OMEGA-3/DHA/EPA/FISH OIL 1,000 MG CAPSULE PO SCH (08:46)
[2019-03-13] MEDS: THIAMINE HCL 100 MG TABLET PO SCH ×2 (08:46→16:14)
[2019-03-13] MEDS: GABAPENTIN 400 MG CAPSULE PO SCH ×3 (08:46→16:14)
[2019-03-13] MEDS: VITAMIN E 200 UNIT PO SCH (08:46)
[2019-03-13] MEDS: TRIHEXYPHENIDYL HCL 5 MG TABLET PO SCH ×3 (08:46→16:14)
[2019-03-13] MEDS: MULTIVITAMINS WITH MINERALS, THERAPEUTIC TABLET PO SCH (08:46)
[2019-03-13] MEDS: HydrOXYzine PAMOATE 25 MG CAPSULE PO SCH ×3 (08:46→16:15)
[2019-03-13] MEDS: FOLIC ACID 1 MG TABLET PO SCH (08:46)
[2019-03-13 16:30] VITALS: BP 126/84
[2019-03-13] MEDS: QUEtiapine FUMARATE 25 MG TABLET PO SCH (16:59)
[2019-03-13] MEDS: QUEtiapine FUMARATE 200 MG TABLET PO SCH (21:00)
[2019-03-14 08:05] VITALS: BP 126/78
[2019-03-14] MEDS: THIAMINE HCL 100 MG TABLET PO SCH ×2 (08:24→16:34)
[2019-03-14] MEDS: DOCUSATE SODIUM 100 MG CAPSULE PO SCH (08:24)
[2019-03-14] MEDS: NALTREXONE HCL 50 MG TABLET PO SCH (08:24)
[2019-03-14] MEDS: OMEGA-3/DHA/EPA/FISH OIL 1,000 MG CAPSULE PO SCH (08:24)
[2019-03-14] MEDS: VITAMIN E 200 UNIT PO SCH (08:24)
[2019-03-14] MEDS: QUEtiapine FUMARATE 25 MG TABLET PO SCH ×3 (08:24→16:34)
[2019-03-14] MEDS: FOLIC ACID 1 MG TABLET PO SCH (08:24)
[2019-03-14] MEDS: HydrOXYzine PAMOATE 25 MG CAPSULE PO SCH ×3 (08:25→16:34)
[2019-03-14] MEDS: MULTIVITAMINS WITH MINERALS, THERAPEUTIC TABLET PO SCH (08:25)
[2019-03-14] MEDS: GABAPENTIN 400 MG CAPSULE PO SCH ×3 (08:25→16:34)
[2019-03-14] MEDS: TRIHEXYPHENIDYL HCL 5 MG TABLET PO SCH ×3 (08:25→16:34)
[2019-03-14] MEDS ORDERED: QUET25TA34 PO (12:51)
[2019-03-14] MEDS ORDERED: GABA-533 PO (12:51)
[2019-03-14] MEDS ORDERED: OMEG-135 PO (12:51)
[2019-03-14] MEDS ORDERED: TRIH5TAB2 PO (12:51)
[2019-03-14] MEDS ORDERED: NALT50TA PO (12:51)
[2019-03-14] MEDS ORDERED: QUET200T29 PO (12:51)
[2019-03-14 16:41] VITALS: BP 106/66
[2019-03-14] MEDS: QUEtiapine FUMARATE 200 MG TABLET PO SCH (21:50)
[2019-03-15 08:05] VITALS: BP 116/70
[2019-03-15] MEDS: OMEGA-3/DHA/EPA/FISH OIL 1,000 MG CAPSULE PO SCH (09:06)
[2019-03-15] MEDS: MULTIVITAMINS WITH MINERALS, THERAPEUTIC TABLET PO SCH (09:06)
[2019-03-15] MEDS: TRIHEXYPHENIDYL HCL 5 MG TABLET PO SCH ×2 (09:07→12:31)
[2019-03-15] MEDS: GABAPENTIN 400 MG CAPSULE PO SCH ×2 (09:07→12:32)
[2019-03-15] MEDS: VITAMIN E 200 UNIT PO SCH (09:07)
[2019-03-15] MEDS: DOCUSATE SODIUM 100 MG CAPSULE PO SCH (09:07)
[2019-03-15] MEDS: QUEtiapine FUMARATE 25 MG TABLET PO SCH ×2 (09:07→12:32)
[2019-03-15] MEDS: THIAMINE HCL 100 MG TABLET PO SCH (09:07)
[2019-03-15] MEDS: FOLIC ACID 1 MG TABLET PO SCH (09:07)
[2019-03-15] MEDS: NALTREXONE HCL 50 MG TABLET PO SCH (09:07)
[2019-03-15] MEDS: HydrOXYzine PAMOATE 25 MG CAPSULE PO SCH ×2 (09:08→12:31)
== END 2019-03-15 12:30 | disposition home or self-care (01) | DRG 885 ==
LOC: EMS 12:31 → AHU 15:10 → 3EI 15:11
PROVIDERS: ADMIT Psychiatry & Neurology Psychiatry; ATTEND Psychiatry & Neurology Psychiatry
DX: F31.2 Bipolar disorder, current episode manic severe with psychotic features (principal); R45.851 Suicidal ideations; E78.5 Hyperlipidemia, unspecified; F10.21 Alcohol dependence, in remission; F70 Mild intellectual disabilities; J44.9 Chronic obstructive pulmonary disease, unspecified; K21.9 Gastro-esophageal reflux disease without esophagitis; F10.20 Alcohol dependence, uncomplicated; K59.00 Constipation, unspecified; Z80.0 Family history of malignant neoplasm of digestive organs; Z81.8 Family history of other mental and behavioral disorders; Z87.891 Personal history of nicotine dependence; Z91.19 Patient's noncompliance with other medical treatment and regimen; Z59.0 Homelessness
CPT/HCPCS: 87081; G0480

== ENCOUNTER 2019-03-20 10:14 | Inpatient (IN) | payer MEDICARE, MEDICAID ==
[~2019-03-20] VITALS: Ht 167.6 cm; Wt 77.6 kg
[~2019-03-20 10:14] MED LIST changes: -OMEG-12 PO; -OMEP20 PO; -QUET100T33 PO; +QUET200T29 PO; +QUET25TA34 PO; -QUET300T2 PO; -ROSU10TA22 PO
[2019-03-20] MEDS ORDERED: GABA-533 PO (11:07)
[2019-03-20] MEDS ORDERED: TRIH5TAB2 PO (11:07)
[2019-03-20] MEDS ORDERED: QUET200T PO (11:07)
[2019-03-20] MEDS ORDERED: NALT50TA6 PO (11:07)
[2019-03-20] MEDS ORDERED: OMEG-135 PO (11:07)
[2019-03-20] MEDS ORDERED: QUET25TA PO (11:07)
[2019-03-20 11:09] VITALS: BP 108/77
[2019-03-20] MEDS ORDERED: QUEtiapine FUMARATE 100 MG TABLET PO PRN (11:15)
[2019-03-20] MEDS ORDERED: ZOLPIDEM TARTRATE 10 MG TABLET PO PRN (11:15)
[2019-03-20] MEDS: QUEtiapine FUMARATE 25 MG TABLET PO SCH ×2 (13:00→16:34)
[2019-03-20] MEDS: GABAPENTIN 300 MG CAPSULE PO SCH ×2 (13:00→16:32)
[2019-03-20 16:03] VITALS: BP 118/81
[2019-03-20] MEDS: TRIHEXYPHENIDYL HCL 5 MG TABLET PO SCH (16:32)
[2019-03-20] MEDS: HydrOXYzine PAMOATE 50 MG CAPSULE PO PRN (16:34)
[2019-03-20] MEDS: QUEtiapine FUMARATE 200 MG TABLET PO SCH (20:36)
[2019-03-21 00:34] VITALS: BP 100/60
[2019-03-21 08:02] LABS: BASOPHILS % (AUTO) 0.2 % (0.0-2.0); EOSINOPHILS % (AUTO) 6.1 % (1.0-6.0); HEMATOCRIT 46.7 % (41-53); HEMOGLOBIN 15.5 g/dL (13.5-17.5); LYMPHOCYTES # (AUTO) 3.2 K/uL (1.0-4.8); LYMPHOCYTES % (AUTO) 36.4 % (22.0-44.0); MEAN CORPUSCULAR HEMOGLOBIN 29.2 pg (26.0-34.0); MEAN CORPUSCULAR HGB CONC 33.1 G/dL (31.0-37.0); MEAN CORPUSCULAR VOLUME 88 fL (80-100); MONOCYTES # (AUTO) 0.7 K/uL (0.1-1.0); MONOCYTES % (AUTO) 8.1 % (2.0-9.0); NEUTROPHILS # (AUTO) 4.3 K/uL (1.8-7.7); NEUTROPHILS % (AUTO) 49.2 % (40.0-70.0); PLATELET COUNT (AUTO) 336 K/uL (150-450); RED CELL DISTRIBUTION WIDTH 14.4 % (11.5-14.5)
[2019-03-21] MEDS: MULTIVITAMINS, THERAPEUTIC TABLET PO SCH (08:07)
[2019-03-21] MEDS: OMEGA-3/DHA/EPA/FISH OIL 1,000 MG CAPSULE PO SCH (08:07)
[2019-03-21] MEDS: QUEtiapine FUMARATE 25 MG TABLET PO SCH ×3 (08:07→16:31)
[2019-03-21] MEDS: DOCUSATE SODIUM 100 MG CAPSULE PO SCH (08:07)
[2019-03-21] MEDS: THIAMINE HCL 100 MG TABLET PO SCH ×2 (08:08→16:31)
[2019-03-21] MEDS: GABAPENTIN 300 MG CAPSULE PO SCH ×3 (08:08→16:31)
[2019-03-21] MEDS: VITAMIN E 200 UNIT PO SCH (08:08)
[2019-03-21] MEDS: TRIHEXYPHENIDYL HCL 5 MG TABLET PO SCH ×2 (08:08→16:31)
[2019-03-21 08:29] LABS: AMPHET/METH SCREEN,URINE NEGATIVE (NEGATIVE); BARBITURATE SCREEN, URINE NEGATIVE (NEGATIVE); BENZODIAZEPINES SCREEN,URINE NEGATIVE (NEGATIVE); CANNABINOID SCREEN,URINE POSITIVE (NEGATIVE); COCAINE SCREEN,URINE NEGATIVE (NEGATIVE); METHADONE SCREEN, URINE NEGATIVE (NEGATIVE); OPIATE SCREEN,URINE NEGATIVE (NEGATIVE)
[2019-03-21 08:30] LABS: PHENCYCLIDINE SCREEN,URINE NEGATIVE (NEGATIVE)
[2019-03-21 08:30] LABS: HEMOGLOBIN A1C 5.5 % (4.5-6.2)
[2019-03-21 08:40] VITALS: BP 103/66
[2019-03-21 08:44] LABS: ALANINE AMINOTRANSFERASE 34 U/L (12-78); ALBUMIN 3.3 g/dL (3.4-5.0); ALKALINE PHOSPHATASE 73 U/L (46-116); ANION GAP 5 mmol/L (8-16); ASPARTATE AMINOTRANSFERASE 22 U/L (15-37); BILIRUBIN,TOTAL 0.2 mg/dL (0.1-1.0); CALCIUM, TOTAL 9.1 mg/dL (8.8-10.5); CARBON DIOXIDE 29 mmol/L (22-29); CHLORIDE 105 mmol/L (98-107); CHOL/HDL RATIO 3.7 (4.2-7.3); CHOLESTEROL 176 mg/dL (131-200); CREATININE 1.04 mg/dL (0.60-1.30); FREE T4 (FREE THYROXINE) 0.88 ng/dL (0.76-1.46); GLOMERULAR FILTR. RATE CALC > 60 mL/min (>60); GLUCOSE,RANDOM 86 mg/dL (70-110); HDL CHOLESTEROL 47 mg/dL (40-60); LDL CHOL (CALC.) 117 mg/dL (0-130); POTASSIUM 5.2 mmol/L (3.5-5.1); SODIUM SERUM 139 mmol/L (136-145); TOTAL PROTEIN, SERUM 6.6 g/dL (6.4-8.2); TRIGLYCERIDES 61 mg/dL (15-150); UREA NITROGEN, BLOOD 19 mg/dL (7-18)
[2019-03-21 08:47] LABS: APPEARANCE,URINE CLEAR (CLEAR); BILIRUBIN,URINE NEGATIVE (NEGATIVE); GLUCOSE, URINE (UA) NEGATIVE (NEGATIVE); KETONES,URINE NEGATIVE (NEGATIVE); LEUKOCYTE ESTERASE ,URINE NEGATIVE (NEGATIVE); NITRATE,URINE NEGATIVE (NEGATIVE); OCCULT BLOOD,URINE NEGATIVE (NEGATIVE); PH,URINE 6.5 (5.0-8.0); PROTEIN,URINE NEGATIVE (NEGATIVE); UROBILINOGEN,URINE 0.2 mg/dL (<=1.0)
[2019-03-21] MEDS ORDERED: SODIUM POLYSTYRENE SULFONATE 15 GM/60 ML SUSPENSION BOTTLE PO ONE (09:30)
[2019-03-21] MEDS ORDERED: PROMETHAZINE HCL 25 MG TABLET PO PRN (12:45)
[2019-03-21] MEDS ORDERED: MAG HYDROX/AL HYDROX/SIMETH ES 30 ML SUSPENSION UDCUP PO PRN (12:45)
[2019-03-21] MEDS ORDERED: MAGNESIUM HYDROXIDE SUSPENSION 30 ML UDCUP PO PRN (12:45)
[2019-03-21 16:13] VITALS: BP 105/67
[2019-03-21] MEDS: QUEtiapine FUMARATE 200 MG TABLET PO SCH (21:11)
[2019-03-22 05:50] VITALS: BP 104/74
[2019-03-22 08:14] VITALS: BP 105/69
[2019-03-22] MEDS: VITAMIN E 200 UNIT PO SCH (08:31)
[2019-03-22] MEDS: DOCUSATE SODIUM 100 MG CAPSULE PO SCH (08:31)
[2019-03-22] MEDS: QUEtiapine FUMARATE 25 MG TABLET PO SCH ×3 (08:31→16:48)
[2019-03-22] MEDS: MULTIVITAMINS, THERAPEUTIC TABLET PO SCH (08:31)
[2019-03-22] MEDS: THIAMINE HCL 100 MG TABLET PO SCH ×2 (08:31→16:47)
[2019-03-22] MEDS: OMEGA-3/DHA/EPA/FISH OIL 1,000 MG CAPSULE PO SCH (08:31)
[2019-03-22] MEDS: TRIHEXYPHENIDYL HCL 5 MG TABLET PO SCH ×2 (08:31→16:47)
[2019-03-22] MEDS: GABAPENTIN 300 MG CAPSULE PO SCH ×3 (08:31→16:48)
[2019-03-22] MEDS ORDERED: QUEtiapine FUMARATE 25 MG TABLET PO SCH (13:00)
[2019-03-22 16:24] VITALS: BP 108/80
[2019-03-22] MEDS: QUEtiapine FUMARATE 200 MG TABLET PO SCH (21:58)
[2019-03-23 02:58] VITALS: BP 134/69
[2019-03-23 06:23] VITALS: BP 134/78
[2019-03-23 08:12] VITALS: BP 118/70
[2019-03-23] MEDS: THIAMINE HCL 100 MG TABLET PO SCH ×2 (08:35→16:27)
[2019-03-23] MEDS: OMEGA-3/DHA/EPA/FISH OIL 1,000 MG CAPSULE PO SCH (08:35)
[2019-03-23] MEDS: MULTIVITAMINS, THERAPEUTIC TABLET PO SCH (08:35)
[2019-03-23] MEDS: TRIHEXYPHENIDYL HCL 5 MG TABLET PO SCH ×2 (08:35→16:27)
[2019-03-23] MEDS: GABAPENTIN 300 MG CAPSULE PO SCH ×3 (08:35→16:27)
[2019-03-23] MEDS: DOCUSATE SODIUM 100 MG CAPSULE PO SCH (08:35)
[2019-03-23] MEDS: VITAMIN E 200 UNIT PO SCH (08:36)
[2019-03-23] MEDS: QUEtiapine FUMARATE 25 MG TABLET PO SCH ×3 (08:36→16:27)
[2019-03-23] MEDS: HydrOXYzine PAMOATE 50 MG CAPSULE PO PRN (15:12)
[2019-03-23 17:04] VITALS: BP 113/78
[2019-03-23] MEDS: QUEtiapine FUMARATE 200 MG TABLET PO SCH (21:25)
[2019-03-23 22:06] VITALS: BP_SYST 116; BP_DIAS 72; BP_DIAS 76
[2019-03-23] MEDS: ACETAMINOPHEN 325 MG TABLET PO PRN (22:06)
[2019-03-24 08:26] VITALS: BP 109/82
[2019-03-24] MEDS: MULTIVITAMINS, THERAPEUTIC TABLET PO SCH (08:33)
[2019-03-24] MEDS: OMEGA-3/DHA/EPA/FISH OIL 1,000 MG CAPSULE PO SCH (08:33)
[2019-03-24] MEDS: DOCUSATE SODIUM 100 MG CAPSULE PO SCH (08:33)
[2019-03-24] MEDS: NALTREXONE HCL 50 MG TABLET PO SCH (08:33)
[2019-03-24] MEDS: QUEtiapine FUMARATE 25 MG TABLET PO SCH ×3 (08:33→16:30)
[2019-03-24] MEDS: THIAMINE HCL 100 MG TABLET PO SCH ×2 (08:33→16:30)
[2019-03-24] MEDS: GABAPENTIN 300 MG CAPSULE PO SCH ×3 (08:33→16:30)
[2019-03-24] MEDS: TRIHEXYPHENIDYL HCL 5 MG TABLET PO SCH ×2 (08:33→16:30)
[2019-03-24] MEDS: VITAMIN E 200 UNIT PO SCH (08:33)
[2019-03-24 16:02] VITALS: BP 117/84
[2019-03-24] MEDS: QUEtiapine FUMARATE 200 MG TABLET PO SCH (21:46)
[2019-03-25 00:26] VITALS: BP 104/72
[2019-03-25 08:15] VITALS: BP 122/63
[2019-03-25] MEDS: DOCUSATE SODIUM 100 MG CAPSULE PO SCH (08:27)
[2019-03-25] MEDS: TRIHEXYPHENIDYL HCL 5 MG TABLET PO SCH ×2 (08:27→16:30)
[2019-03-25] MEDS: MULTIVITAMINS, THERAPEUTIC TABLET PO SCH (08:27)
[2019-03-25] MEDS: VITAMIN E 200 UNIT PO SCH (08:27)
[2019-03-25] MEDS: QUEtiapine FUMARATE 25 MG TABLET PO SCH ×3 (08:27→16:30)
[2019-03-25] MEDS: OMEGA-3/DHA/EPA/FISH OIL 1,000 MG CAPSULE PO SCH (08:27)
[2019-03-25] MEDS: GABAPENTIN 300 MG CAPSULE PO SCH ×3 (08:27→16:30)
[2019-03-25] MEDS: NALTREXONE HCL 50 MG TABLET PO SCH (08:27)
[2019-03-25] MEDS: THIAMINE HCL 100 MG TABLET PO SCH ×2 (08:28→16:30)
[2019-03-25 16:20] VITALS: BP 116/73
[2019-03-25] MEDS: QUEtiapine FUMARATE 200 MG TABLET PO SCH (21:36)
[2019-03-26 01:00] VITALS: BP 124/74
[2019-03-26 08:09] VITALS: BP 107/71
[2019-03-26] MEDS: TRIHEXYPHENIDYL HCL 5 MG TABLET PO SCH ×2 (08:50→16:30)
[2019-03-26] MEDS: NALTREXONE HCL 50 MG TABLET PO SCH (08:50)
[2019-03-26] MEDS: QUEtiapine FUMARATE 25 MG TABLET PO SCH ×3 (08:50→16:30)
[2019-03-26] MEDS: MULTIVITAMINS, THERAPEUTIC TABLET PO SCH (08:51)
[2019-03-26] MEDS: GABAPENTIN 300 MG CAPSULE PO SCH ×3 (08:51→16:30)
[2019-03-26] MEDS: VITAMIN E 200 UNIT PO SCH (08:51)
[2019-03-26] MEDS: THIAMINE HCL 100 MG TABLET PO SCH ×2 (08:51→16:30)
[2019-03-26] MEDS: OMEGA-3/DHA/EPA/FISH OIL 1,000 MG CAPSULE PO SCH (08:51)
[2019-03-26] MEDS: DOCUSATE SODIUM 100 MG CAPSULE PO SCH (08:53)
[2019-03-26] MEDS: HydrOXYzine PAMOATE 50 MG CAPSULE PO PRN (12:07)
[2019-03-26 17:31] VITALS: BP 122/83
[2019-03-26] MEDS: QUEtiapine FUMARATE 200 MG TABLET PO SCH (21:50)
[2019-03-27 00:39] VITALS: BP 111/64
[2019-03-27 08:22] VITALS: BP 108/75
[2019-03-27] MEDS: MULTIVITAMINS, THERAPEUTIC TABLET PO SCH (08:35)
[2019-03-27] MEDS: QUEtiapine FUMARATE 25 MG TABLET PO SCH ×3 (08:36→16:12)
[2019-03-27] MEDS: THIAMINE HCL 100 MG TABLET PO SCH ×2 (08:36→16:12)
[2019-03-27] MEDS: VITAMIN E 200 UNIT PO SCH (08:36)
[2019-03-27] MEDS: TRIHEXYPHENIDYL HCL 5 MG TABLET PO SCH ×2 (08:36→16:11)
[2019-03-27] MEDS: OMEGA-3/DHA/EPA/FISH OIL 1,000 MG CAPSULE PO SCH (08:36)
[2019-03-27] MEDS: DOCUSATE SODIUM 100 MG CAPSULE PO SCH (08:36)
[2019-03-27] MEDS: NALTREXONE HCL 50 MG TABLET PO SCH (08:36)
[2019-03-27] MEDS: GABAPENTIN 300 MG CAPSULE PO SCH ×3 (08:36→16:12)
[2019-03-27 16:28] VITALS: BP 100/60
[2019-03-27] MEDS: QUEtiapine FUMARATE 200 MG TABLET PO SCH (21:57)
[2019-03-28 00:24] VITALS: BP 119/68
[2019-03-28] MEDS: HydrOXYzine PAMOATE 50 MG CAPSULE PO PRN (01:02)
[2019-03-28] MEDS: TRIHEXYPHENIDYL HCL 5 MG TABLET PO SCH ×2 (08:20→16:39)
[2019-03-28] MEDS: GABAPENTIN 300 MG CAPSULE PO SCH ×3 (08:20→16:39)
[2019-03-28] MEDS: NALTREXONE HCL 50 MG TABLET PO SCH (08:20)
[2019-03-28] MEDS: DOCUSATE SODIUM 100 MG CAPSULE PO SCH (08:20)
[2019-03-28] MEDS: THIAMINE HCL 100 MG TABLET PO SCH ×2 (08:20→16:39)
[2019-03-28] MEDS: QUEtiapine FUMARATE 25 MG TABLET PO SCH ×3 (08:20→16:39)
[2019-03-28] MEDS: VITAMIN E 200 UNIT PO SCH (08:20)
[2019-03-28] MEDS: OMEGA-3/DHA/EPA/FISH OIL 1,000 MG CAPSULE PO SCH (08:20)
[2019-03-28] MEDS: MULTIVITAMINS, THERAPEUTIC TABLET PO SCH (08:20)
[2019-03-28 08:49] VITALS: BP 114/76
[2019-03-28 16:12] VITALS: BP 115/79
[2019-03-28] MEDS: QUEtiapine FUMARATE 200 MG TABLET PO SCH (21:56)
[2019-03-29 06:39] VITALS: BP 139/79
[2019-03-29] MEDS: DOCUSATE SODIUM 100 MG CAPSULE PO SCH (08:18)
[2019-03-29] MEDS: GABAPENTIN 300 MG CAPSULE PO SCH ×3 (08:18→16:52)
[2019-03-29] MEDS: OMEGA-3/DHA/EPA/FISH OIL 1,000 MG CAPSULE PO SCH (08:19)
[2019-03-29] MEDS: VITAMIN E 200 UNIT PO SCH (08:19)
[2019-03-29] MEDS: QUEtiapine FUMARATE 25 MG TABLET PO SCH ×3 (08:19→16:52)
[2019-03-29] MEDS: TRIHEXYPHENIDYL HCL 5 MG TABLET PO SCH ×2 (08:19→16:52)
[2019-03-29] MEDS: THIAMINE HCL 100 MG TABLET PO SCH ×2 (08:19→16:52)
[2019-03-29] MEDS: MULTIVITAMINS, THERAPEUTIC TABLET PO SCH (08:19)
[2019-03-29] MEDS: NALTREXONE HCL 50 MG TABLET PO SCH (08:19)
[2019-03-29 08:28] VITALS: BP 100/68
[2019-03-29 16:43] VITALS: BP 130/75
[2019-03-29] MEDS: ACETAMINOPHEN 325 MG TABLET PO PRN (19:42)
[2019-03-29] MEDS: QUEtiapine FUMARATE 200 MG TABLET PO SCH (21:55)
[2019-03-30 02:16] VITALS: BP 102/72
[2019-03-30] MEDS: MULTIVITAMINS, THERAPEUTIC TABLET PO SCH (08:40)
[2019-03-30] MEDS: NALTREXONE HCL 50 MG TABLET PO SCH (08:40)
[2019-03-30] MEDS: GABAPENTIN 300 MG CAPSULE PO SCH ×3 (08:40→16:09)
[2019-03-30] MEDS: OMEGA-3/DHA/EPA/FISH OIL 1,000 MG CAPSULE PO SCH (08:40)
[2019-03-30] MEDS: VITAMIN E 200 UNIT PO SCH (08:40)
[2019-03-30] MEDS: TRIHEXYPHENIDYL HCL 5 MG TABLET PO SCH ×2 (08:40→16:09)
[2019-03-30] MEDS: DOCUSATE SODIUM 100 MG CAPSULE PO SCH (08:40)
[2019-03-30] MEDS: QUEtiapine FUMARATE 25 MG TABLET PO SCH ×2 (08:41→12:18)
[2019-03-30] MEDS: THIAMINE HCL 100 MG TABLET PO SCH ×2 (08:41→16:09)
[2019-03-30 09:03] VITALS: BP 103/60
[2019-03-30] MEDS: HydrOXYzine PAMOATE 50 MG CAPSULE PO PRN (09:33)
[2019-03-30] MEDS: QUEtiapine FUMARATE 100 MG TABLET PO SCH (16:09)
[2019-03-30 16:43] VITALS: BP 117/74
[2019-03-30] MEDS: QUEtiapine FUMARATE 200 MG TABLET PO SCH (21:54)
[2019-03-31 00:47] VITALS: BP 105/60
[2019-03-31] MEDS: GABAPENTIN 300 MG CAPSULE PO SCH ×3 (08:47→16:20)
[2019-03-31] MEDS: DOCUSATE SODIUM 100 MG CAPSULE PO SCH (08:47)
[2019-03-31] MEDS: QUEtiapine FUMARATE 100 MG TABLET PO SCH ×3 (08:47→16:20)
[2019-03-31] MEDS: THIAMINE HCL 100 MG TABLET PO SCH ×2 (08:48→16:20)
[2019-03-31] MEDS: OMEGA-3/DHA/EPA/FISH OIL 1,000 MG CAPSULE PO SCH (08:48)
[2019-03-31] MEDS: MULTIVITAMINS, THERAPEUTIC TABLET PO SCH (08:48)
[2019-03-31] MEDS: TRIHEXYPHENIDYL HCL 5 MG TABLET PO SCH ×2 (08:48→16:20)
[2019-03-31] MEDS: VITAMIN E 200 UNIT PO SCH (08:48)
[2019-03-31] MEDS: NALTREXONE HCL 50 MG TABLET PO SCH (08:48)
[2019-03-31 08:50] VITALS: BP 102/66
[2019-03-31 16:37] VITALS: BP 106/62
[2019-03-31] MEDS: QUEtiapine FUMARATE 200 MG TABLET PO SCH (21:54)
[2019-04-01 01:47] VITALS: BP 110/68
[2019-04-01 08:17] VITALS: BP 109/65
[2019-04-01] MEDS: MULTIVITAMINS, THERAPEUTIC TABLET PO SCH (08:22)
[2019-04-01] MEDS: GABAPENTIN 300 MG CAPSULE PO SCH ×3 (08:22→16:32)
[2019-04-01] MEDS: OMEGA-3/DHA/EPA/FISH OIL 1,000 MG CAPSULE PO SCH (08:22)
[2019-04-01] MEDS: TRIHEXYPHENIDYL HCL 5 MG TABLET PO SCH ×2 (08:23→16:32)
[2019-04-01] MEDS: VITAMIN E 200 UNIT PO SCH (08:23)
[2019-04-01] MEDS: DOCUSATE SODIUM 100 MG CAPSULE PO SCH (08:23)
[2019-04-01] MEDS: QUEtiapine FUMARATE 100 MG TABLET PO SCH ×3 (08:23→16:32)
[2019-04-01] MEDS: NALTREXONE HCL 50 MG TABLET PO SCH (08:23)
[2019-04-01] MEDS: THIAMINE HCL 100 MG TABLET PO SCH ×2 (08:23→16:32)
[2019-04-01 16:13] VITALS: BP 119/82
[2019-04-01] MEDS: QUEtiapine FUMARATE 200 MG TABLET PO SCH (21:54)
[2019-04-02 01:59] VITALS: BP 117/72
[2019-04-02 08:34] VITALS: BP 101/62
[2019-04-02] MEDS: VITAMIN E 200 UNIT PO SCH (09:39)
[2019-04-02] MEDS: QUEtiapine FUMARATE 100 MG TABLET PO SCH ×3 (09:39→16:29)
[2019-04-02] MEDS: MULTIVITAMINS, THERAPEUTIC TABLET PO SCH (09:39)
[2019-04-02] MEDS: GABAPENTIN 300 MG CAPSULE PO SCH ×3 (09:40→16:28)
[2019-04-02] MEDS: TRIHEXYPHENIDYL HCL 5 MG TABLET PO SCH ×2 (09:40→16:29)
[2019-04-02] MEDS: OMEGA-3/DHA/EPA/FISH OIL 1,000 MG CAPSULE PO SCH (09:40)
[2019-04-02] MEDS: DOCUSATE SODIUM 100 MG CAPSULE PO SCH (09:40)
[2019-04-02] MEDS: THIAMINE HCL 100 MG TABLET PO SCH ×2 (09:40→16:29)
[2019-04-02] MEDS: NALTREXONE HCL 50 MG TABLET PO SCH (09:40)
[2019-04-02 16:17] VITALS: BP 107/77
[2019-04-02] MEDS: QUEtiapine FUMARATE 200 MG TABLET PO SCH (21:37)
[2019-04-03 00:03] VITALS: BP 123/84
[2019-04-03] MEDS: THIAMINE HCL 100 MG TABLET PO SCH ×2 (08:11→16:22)
[2019-04-03] MEDS: OMEGA-3/DHA/EPA/FISH OIL 1,000 MG CAPSULE PO SCH (08:11)
[2019-04-03] MEDS: NALTREXONE HCL 50 MG TABLET PO SCH (08:12)
[2019-04-03] MEDS: MULTIVITAMINS, THERAPEUTIC TABLET PO SCH (08:12)
[2019-04-03] MEDS: DOCUSATE SODIUM 100 MG CAPSULE PO SCH (08:12)
[2019-04-03] MEDS: VITAMIN E 200 UNIT PO SCH (08:12)
[2019-04-03] MEDS: QUEtiapine FUMARATE 100 MG TABLET PO SCH ×3 (08:12→16:22)
[2019-04-03] MEDS: TRIHEXYPHENIDYL HCL 5 MG TABLET PO SCH ×2 (08:12→16:22)
[2019-04-03] MEDS: GABAPENTIN 300 MG CAPSULE PO SCH ×3 (08:12→16:22)
[2019-04-03 08:26] VITALS: BP 130/80
[2019-04-03 16:44] VITALS: BP 112/78
[2019-04-03] MEDS: QUEtiapine FUMARATE 200 MG TABLET PO SCH (21:46)
[2019-04-04 06:58] VITALS: BP 117/68
[2019-04-04 08:16] VITALS: BP 103/68
[2019-04-04] MEDS: THIAMINE HCL 100 MG TABLET PO SCH ×2 (08:45→17:38)
[2019-04-04] MEDS: QUEtiapine FUMARATE 100 MG TABLET PO SCH ×3 (08:45→17:38)
[2019-04-04] MEDS: MULTIVITAMINS, THERAPEUTIC TABLET PO SCH (08:45)
[2019-04-04] MEDS: OMEGA-3/DHA/EPA/FISH OIL 1,000 MG CAPSULE PO SCH (08:45)
[2019-04-04] MEDS: GABAPENTIN 300 MG CAPSULE PO SCH ×3 (08:45→17:38)
[2019-04-04] MEDS: DOCUSATE SODIUM 100 MG CAPSULE PO SCH (08:45)
[2019-04-04] MEDS: TRIHEXYPHENIDYL HCL 5 MG TABLET PO SCH ×2 (08:45→17:37)
[2019-04-04] MEDS: NALTREXONE HCL 50 MG TABLET PO SCH (08:45)
[2019-04-04] MEDS: VITAMIN E 200 UNIT PO SCH (08:45)
[2019-04-04 17:16] VITALS: BP 115/79
[2019-04-04] MEDS: QUEtiapine FUMARATE 200 MG TABLET PO SCH (21:30)
[2019-04-05 03:00] VITALS: BP 118/72
[2019-04-05 07:45] VITALS: BP 109/68
[2019-04-05 08:00] VITALS: BP 109/68
[2019-04-05] MEDS: MULTIVITAMINS, THERAPEUTIC TABLET PO SCH (08:00)
[2019-04-05] MEDS: TRIHEXYPHENIDYL HCL 5 MG TABLET PO SCH ×2 (08:01→17:27)
[2019-04-05] MEDS: OMEGA-3/DHA/EPA/FISH OIL 1,000 MG CAPSULE PO SCH (08:01)
[2019-04-05] MEDS: GABAPENTIN 300 MG CAPSULE PO SCH ×3 (08:01→17:27)
[2019-04-05] MEDS: NALTREXONE HCL 50 MG TABLET PO SCH (08:01)
[2019-04-05] MEDS: THIAMINE HCL 100 MG TABLET PO SCH ×2 (08:01→17:27)
[2019-04-05] MEDS: VITAMIN E 200 UNIT PO SCH (08:01)
[2019-04-05] MEDS: DOCUSATE SODIUM 100 MG CAPSULE PO SCH (08:01)
[2019-04-05] MEDS: QUEtiapine FUMARATE 100 MG TABLET PO SCH ×3 (08:01→17:27)
[2019-04-05 16:15] VITALS: BP 118/76
[2019-04-05] MEDS: QUEtiapine FUMARATE 200 MG TABLET PO SCH (21:58)
[2019-04-06 06:43] VITALS: BP 102/61
[2019-04-06 08:09] VITALS: BP 100/61
[2019-04-06] MEDS: QUEtiapine FUMARATE 100 MG TABLET PO SCH ×2 (08:46→12:49)
[2019-04-06] MEDS: GABAPENTIN 300 MG CAPSULE PO SCH ×2 (08:46→12:48)
[2019-04-06] MEDS: DOCUSATE SODIUM 100 MG CAPSULE PO SCH (08:46)
[2019-04-06] MEDS: OMEGA-3/DHA/EPA/FISH OIL 1,000 MG CAPSULE PO SCH (08:46)
[2019-04-06] MEDS: TRIHEXYPHENIDYL HCL 5 MG TABLET PO SCH (08:47)
[2019-04-06] MEDS: VITAMIN E 200 UNIT PO SCH (08:47)
[2019-04-06] MEDS: NALTREXONE HCL 50 MG TABLET PO SCH (08:47)
[2019-04-06] MEDS: THIAMINE HCL 100 MG TABLET PO SCH (08:47)
[2019-04-06] MEDS: MULTIVITAMINS, THERAPEUTIC TABLET PO SCH (08:47)
[2019-04-06] MEDS ORDERED: OMEG-135 PO (11:25)
[2019-04-06] MEDS ORDERED: QUET100T33 PO (11:25)
[2019-04-06] MEDS ORDERED: GABA-531 PO ×2 (11:25→12:46)
[2019-04-06] MEDS ORDERED: TRIH5TAB2 PO (11:25)
[2019-04-06] MEDS ORDERED: NALT50TA PO (11:25)
[2019-04-06] MEDS ORDERED: QUET200T29 PO (11:25)
[2019-04-06] MEDS ORDERED: QUET100T PO (12:46)
[2019-04-06] MEDS ORDERED: QUET200T PO (12:47)
== END 2019-04-06 13:05 | disposition home or self-care (01) | DRG 885 ==
LOC: B3A 12:38 → B2S 03-21 13:31
PROVIDERS: ADMIT Psychiatry & Neurology Psychiatry; ATTEND Psychiatry & Neurology Psychiatry
DX: F31.60 Bipolar disorder, current episode mixed, unspecified (principal); R45.851 Suicidal ideations; E78.5 Hyperlipidemia, unspecified; K59.09 Other constipation; F70 Mild intellectual disabilities; F12.20 Cannabis dependence, uncomplicated; E87.5 Hyperkalemia; F41.9 Anxiety disorder, unspecified; K21.9 Gastro-esophageal reflux disease without esophagitis; R41.843 Psychomotor deficit; Z56.0 Unemployment, unspecified; Z91.14 Patient's other noncompliance with medication regimen; Z80.0 Family history of malignant neoplasm of digestive organs; Z79.899 Other long term (current) drug therapy
CPT/HCPCS: 80307; 83036; 84132; 84436; 84439; 87081

== ENCOUNTER 2022-03-18 01:35 | Inpatient (IN) | payer MEDICARE, MEDICAID ==
[~2022-03-18] VITALS: Ht 167.6 cm; Wt 83.9 kg
[~2022-03-18 01:35] MED LIST changes: +ATOR10TA84 PO; +DOCU-385 PO; -DSS100 PO; -FOLI1TAB15 PO; -GABA-533 PO; +HYDR-4808 PO; +MELA5TAB40 PO; -MULT-1192 PO; +OMEG-108 PO; -OMEG-135 PO; +PANT-31 PO; -QUET200T29 PO; +QUET200T30 PO; -QUET25TA34 PO; -THIA100T72 PO; +TRIH2TAB3 PO; -TRIH5TAB2 PO; -VITA200T8 PO
[2022-03-18 03:30] LABS: BASOPHILS % (AUTO) 0.3 % (0.0-2.0); EOSINOPHILS % (AUTO) 5.4 % (1.0-6.0); HEMATOCRIT 42.5 % (41-53); HEMOGLOBIN 14.7 g/dL (13.5-17.5); LYMPHOCYTES # (AUTO) 2.4 K/uL (1.0-4.8); LYMPHOCYTES % (AUTO) 23.1 % (22.0-44.0); MEAN CORPUSCULAR HEMOGLOBIN 30.5 pg (26.0-34.0); MEAN CORPUSCULAR HGB CONC 34.7 G/dL (31.0-37.0); MEAN CORPUSCULAR VOLUME 88 fL (80-100); MONOCYTES % (AUTO) 9.4 % (2.0-9.0); NEUTROPHILS # (AUTO) 6.3 K/uL (1.8-7.7); NEUTROPHILS % (AUTO) 61.8 % (40.0-70.0); PLATELET COUNT (AUTO) 299 K/uL (150-450); RED BLOOD CELL COUNT(AUTO) 4.84 MIL/uL (4.50-5.90); RED CELL DISTRIBUTION WIDTH 13.7 % (11.5-14.5)
[2022-03-18 03:38] LABS: ANION GAP 5 mmol/L (8-16); CALCIUM, TOTAL 9.6 mg/dL (8.8-10.5); CARBON DIOXIDE 31 mmol/L (22-29); CHLORIDE 101 mmol/L (98-107); CREATININE 0.93 mg/dL (0.60-1.30); GLOMERULAR FILTR. RATE CALC > 60 mL/min (>60); GLUCOSE,RANDOM 90 mg/dL (70-110); POTASSIUM 4.3 mmol/L (3.5-5.1); SODIUM SERUM 137 mmol/L (136-145); UREA NITROGEN, BLOOD 11 mg/dL (7-18)
[2022-03-18 03:44] LABS: ALANINE AMINOTRANSFERASE 55 U/L (12-78); ALKALINE PHOSPHATASE 87 U/L (46-116); ASPARTATE AMINOTRANSFERASE 43 U/L (15-37); TOTAL PROTEIN, SERUM 7.8 g/dL (6.4-8.2)
[2022-03-18] MEDS ORDERED: OLANZapine 5 MG RAPDIS TABLET PO ONE (03:45)
[2022-03-18] MEDS ORDERED: LORazepam 1 MG TABLET PO ONE (03:45)
[2022-03-18] MEDS ORDERED: LORazepam 2 MG TABLET PO PRN ×2 (04:15→07:30)
[2022-03-18] MEDS ORDERED: HALOPERIDOL 5 MG TABLET PO PRN ×2 (04:15→07:30)
[2022-03-18] MEDS ORDERED: ZOLPIDEM TARTRATE 10 MG TABLET PO PRN ×2 (04:15→07:30)
[2022-03-18 05:31] LABS: COVID AG,FIA SOURCE NASAL SWAB
[2022-03-18 08:08] LABS: APPEARANCE,URINE CLEAR (CLEAR); BILIRUBIN,URINE NEGATIVE (NEGATIVE); GLUCOSE, URINE (UA) NEGATIVE (NEGATIVE); LEUKOCYTE ESTERASE ,URINE NEGATIVE (NEGATIVE); NITRATE,URINE NEGATIVE (NEGATIVE); OCCULT BLOOD,URINE NEGATIVE (NEGATIVE); PROTEIN,URINE NEGATIVE (NEGATIVE); UROBILINOGEN,URINE <=1.0 mg/dL (<=1.0)
[2022-03-18 08:23] LABS: AMPHET/METH SCREEN,URINE POSITIVE (NEGATIVE); BARBITURATE SCREEN, URINE NEGATIVE (NEGATIVE); BENZODIAZEPINES SCREEN,URINE NEGATIVE (NEGATIVE); CANNABINOID SCREEN,URINE POSITIVE (NEGATIVE); COCAINE SCREEN,URINE NEGATIVE (NEGATIVE); METHADONE SCREEN, URINE NEGATIVE (NEGATIVE); OPIATE SCREEN,URINE NEGATIVE (NEGATIVE)
[2022-03-18 08:24] LABS: PHENCYCLIDINE SCREEN,URINE NEGATIVE (NEGATIVE)
[2022-03-18 11:28] VITALS: BP 128/79
[2022-03-18] MEDS ORDERED: ACETAMINOPHEN 325 MG TABLET PO PRN (14:30)
[2022-03-18] MEDS ORDERED: HydrOXYzine PAMOATE 25 MG CAPSULE PO PRN (14:30)
[2022-03-18] MEDS ORDERED: HydrOXYzine PAMOATE 50 MG CAPSULE PO PRN (14:30)
[2022-03-18] MEDS ORDERED: MAGNESIUM HYDROXIDE SUSPENSION 30 ML UDCUP PO PRN (14:30)
[2022-03-18] MEDS ORDERED: MAG HYDROX/AL HYDROX/SIMETH ES 30 ML SUSPENSION UDCUP PO PRN (14:30)
[2022-03-18] MEDS ORDERED: LOPERAMIDE HCL 2 MG CAPSULE PO PRN (14:30)
[2022-03-18] MEDS ORDERED: GuaiFENesin/D-METHORPHAN [SUGAR-FREE] 200-20MG/10 ML SYRUP UDCUP PO PRN (14:30)
[2022-03-18] MEDS ORDERED: QUEtiapine FUMARATE 100 MG TABLET PO PRN (14:30)
[2022-03-18] MEDS ORDERED: PROMETHAZINE HCL 25 MG TABLET PO PRN (14:30)
[2022-03-18] MEDS ORDERED: PERMETHRIN 5% 60 GM CREAM TP ONE (15:00)
[2022-03-18 16:17] VITALS: BP 132/75
[2022-03-18] MEDS: HydrOXYzine PAMOATE 25 MG CAPSULE PO SCH (17:00)
[2022-03-18] MEDS: THIAMINE 100 MG TABLET PO SCH (17:00)
[2022-03-18] MEDS: TRIHEXYPHENIDYL HCL 2 MG TABLET PO SCH (17:09)
[2022-03-18] MEDS: QUEtiapine FUMARATE 200 MG TABLET PO SCH (20:34)
[2022-03-18] MEDS: ATORVASTATIN CALCIUM 10 MG TABLET PO SCH (21:00)
[2022-03-18] MEDS: MELATONIN 5 MG TABLET PO SCH (21:00)
[2022-03-18] MEDS ORDERED: MELATONIN 5 MG TABLET PO SCH (21:00)
[2022-03-19 00:20] VITALS: BP 116/74
[2022-03-19] MEDS ORDERED: PANTOPRAZOLE SODIUM 40 MG DR TABLET PO SCH (06:30)
[2022-03-19] MEDS: DOCUSATE SODIUM 100 MG CAPSULE PO SCH ×3 (08:46→10:15)
[2022-03-19] MEDS: TRIHEXYPHENIDYL HCL 2 MG TABLET PO SCH ×3 (08:46→10:14)
[2022-03-19] MEDS: MULTIVITAMINS WITH MINERALS, THERAPEUTIC TABLET PO SCH (08:46)
[2022-03-19] MEDS: OMEGA-3/DHA/EPA/FISH OIL 1,000 MG CAPSULE PO SCH (08:46)
[2022-03-19] MEDS: FOLIC ACID 1 MG TABLET PO SCH ×2 (08:46→09:00)
[2022-03-19] MEDS: THIAMINE 100 MG TABLET PO SCH ×2 (08:46→09:17)
[2022-03-19] MEDS: NALTREXONE HCL 50 MG TABLET PO SCH ×3 (08:47→10:15)
[2022-03-19] MEDS: HydrOXYzine PAMOATE 25 MG CAPSULE PO SCH ×3 (08:53→10:15)
[2022-03-19 08:58] VITALS: BP 118/70
[2022-03-19] MEDS ORDERED: OMEGA-3/DHA/EPA/FISH OIL 1,000 MG CAPSULE PO SCH (09:00)
[2022-03-19 16:14] VITALS: BP 106/60
[2022-03-19] MEDS: ATORVASTATIN CALCIUM 10 MG TABLET PO SCH (21:00)
[2022-03-19] MEDS: MELATONIN 5 MG TABLET PO SCH (21:00)
[2022-03-19] MEDS: TRIHEXYPHENIDYL HCL 5 MG TABLET PO SCH ×2 (21:00→21:36)
[2022-03-19] MEDS: QUEtiapine FUMARATE 200 MG TABLET PO SCH ×2 (21:00→21:36)
[2022-03-20 06:42] VITALS: BP 109/63
[2022-03-20 08:38] VITALS: BP 109/64
[2022-03-20] MEDS: OMEGA-3/DHA/EPA/FISH OIL 1,000 MG CAPSULE PO SCH (08:39)
[2022-03-20] MEDS: VITAMIN E 200 UNIT PO SCH (08:39)
[2022-03-20] MEDS: MULTIVITAMINS WITH MINERALS, THERAPEUTIC TABLET PO SCH (08:40)
[2022-03-20] MEDS: FOLIC ACID 1 MG TABLET PO SCH (08:45)
[2022-03-20] MEDS: THIAMINE 100 MG TABLET PO SCH ×2 (08:47→17:00)
[2022-03-20 16:00] VITALS: BP 112/68
[2022-03-20] MEDS: MELATONIN 5 MG TABLET PO SCH (21:00)
[2022-03-20] MEDS: ATORVASTATIN CALCIUM 10 MG TABLET PO SCH (21:00)
[2022-03-20] MEDS: QUEtiapine FUMARATE 200 MG TABLET PO SCH (21:26)
[2022-03-20] MEDS: TRIHEXYPHENIDYL HCL 5 MG TABLET PO SCH (21:26)
[2022-03-21 05:30] VITALS: BP 114/62
[2022-03-21] MEDS: VITAMIN E 200 UNIT PO SCH (08:05)
[2022-03-21] MEDS: OMEGA-3/DHA/EPA/FISH OIL 1,000 MG CAPSULE PO SCH (08:05)
[2022-03-21] MEDS: DOCUSATE SODIUM 100 MG CAPSULE PO SCH (08:06)
[2022-03-21] MEDS: MULTIVITAMINS WITH MINERALS, THERAPEUTIC TABLET PO SCH (08:06)
[2022-03-21] MEDS: THIAMINE 100 MG TABLET PO SCH ×2 (08:13→17:00)
[2022-03-21] MEDS: FOLIC ACID 1 MG TABLET PO SCH (08:14)
[2022-03-21] MEDS: NALTREXONE HCL 50 MG TABLET PO SCH (08:15)
[2022-03-21 08:28] VITALS: BP 116/67
[2022-03-21 16:55] VITALS: BP 121/68
[2022-03-21] MEDS: ATORVASTATIN CALCIUM 10 MG TABLET PO SCH (21:00)
[2022-03-21] MEDS: MELATONIN 5 MG TABLET PO SCH (21:00)
[2022-03-21] MEDS: TRIHEXYPHENIDYL HCL 5 MG TABLET PO SCH (21:23)
[2022-03-21] MEDS: QUEtiapine FUMARATE 200 MG TABLET PO SCH (21:23)
[2022-03-22 06:49] VITALS: BP 116/68
[2022-03-22] MEDS: OMEGA-3/DHA/EPA/FISH OIL 1,000 MG CAPSULE PO SCH (08:58)
[2022-03-22] MEDS: DOCUSATE SODIUM 100 MG CAPSULE PO SCH (08:58)
[2022-03-22] MEDS: MULTIVITAMINS WITH MINERALS, THERAPEUTIC TABLET PO SCH (08:59)
[2022-03-22] MEDS: NALTREXONE HCL 50 MG TABLET PO SCH (08:59)
[2022-03-22] MEDS: FOLIC ACID 1 MG TABLET PO SCH (08:59)
[2022-03-22] MEDS: THIAMINE 100 MG TABLET PO SCH ×2 (08:59→17:00)
[2022-03-22] MEDS: VITAMIN E 200 UNIT PO SCH (08:59)
[2022-03-22 16:09] VITALS: BP 102/79
[2022-03-22] MEDS: TRIHEXYPHENIDYL HCL 5 MG TABLET PO SCH (20:54)
[2022-03-22] MEDS: MELATONIN 5 MG TABLET PO SCH (20:54)
[2022-03-22] MEDS: ATORVASTATIN CALCIUM 10 MG TABLET PO SCH (20:54)
[2022-03-22] MEDS: QUEtiapine FUMARATE 200 MG TABLET PO SCH (20:54)
[2022-03-23 04:25] VITALS: BP 130/75
[2022-03-23] MEDS: OMEGA-3/DHA/EPA/FISH OIL 1,000 MG CAPSULE PO SCH (08:25)
[2022-03-23] MEDS: DOCUSATE SODIUM 100 MG CAPSULE PO SCH (08:25)
[2022-03-23] MEDS: MULTIVITAMINS WITH MINERALS, THERAPEUTIC TABLET PO SCH (08:26)
[2022-03-23] MEDS: VITAMIN E 200 UNIT PO SCH (08:26)
[2022-03-23 08:59] VITALS: BP 111/76
[2022-03-23] MEDS: FOLIC ACID 1 MG TABLET PO SCH (09:00)
[2022-03-23] MEDS: THIAMINE 100 MG TABLET PO SCH ×2 (09:00→17:00)
[2022-03-23] MEDS: NALTREXONE HCL 50 MG TABLET PO SCH (09:00)
[2022-03-23 16:21] VITALS: BP 108/77
[2022-03-23] MEDS: ATORVASTATIN CALCIUM 10 MG TABLET PO SCH (20:06)
[2022-03-23] MEDS: HydrOXYzine PAMOATE 25 MG CAPSULE PO SCH (20:07)
[2022-03-23] MEDS: TRIHEXYPHENIDYL HCL 5 MG TABLET PO SCH (20:07)
[2022-03-23] MEDS: QUEtiapine FUMARATE 200 MG TABLET PO SCH (20:07)
[2022-03-23] MEDS: MELATONIN 5 MG TABLET PO SCH (21:00)
[2022-03-24 00:09] VITALS: BP 106/70
[2022-03-24 08:21] VITALS: BP 122/61
[2022-03-24] MEDS: HydrOXYzine PAMOATE 25 MG CAPSULE PO SCH ×2 (09:00→21:00)
[2022-03-24] MEDS: NALTREXONE HCL 50 MG TABLET PO SCH (09:00)
[2022-03-24] MEDS: FOLIC ACID 1 MG TABLET PO SCH (09:00)
[2022-03-24] MEDS: THIAMINE 100 MG TABLET PO SCH ×2 (09:00→16:40)
[2022-03-24] MEDS: MULTIVITAMINS WITH MINERALS, THERAPEUTIC TABLET PO SCH (09:21)
[2022-03-24] MEDS: VITAMIN E 200 UNIT PO SCH (09:21)
[2022-03-24] MEDS: OMEGA-3/DHA/EPA/FISH OIL 1,000 MG CAPSULE PO SCH (09:21)
[2022-03-24] MEDS: DOCUSATE SODIUM 100 MG CAPSULE PO SCH (09:22)
[2022-03-24 11:26] LABS: GLUCOMETER DEV NAME(LOC) POC.BV
[2022-03-24 16:11] VITALS: BP 112/66
[2022-03-24] MEDS: ATORVASTATIN CALCIUM 10 MG TABLET PO SCH (21:00)
[2022-03-24] MEDS: MELATONIN 5 MG TABLET PO SCH (21:00)
[2022-03-24] MEDS: TRIHEXYPHENIDYL HCL 5 MG TABLET PO SCH (21:52)
[2022-03-24] MEDS: QUEtiapine FUMARATE 200 MG TABLET PO SCH (21:52)
[2022-03-25 00:22] VITALS: BP 132/68
[2022-03-25] MEDS: THIAMINE 100 MG TABLET PO SCH ×2 (09:00→17:45)
[2022-03-25] MEDS: HydrOXYzine PAMOATE 25 MG CAPSULE PO SCH ×2 (09:00→20:45)
[2022-03-25] MEDS: NALTREXONE HCL 50 MG TABLET PO SCH (09:00)
[2022-03-25] MEDS: FOLIC ACID 1 MG TABLET PO SCH (09:00)
[2022-03-25] MEDS: DOCUSATE SODIUM 100 MG CAPSULE PO SCH (09:15)
[2022-03-25] MEDS: OMEGA-3/DHA/EPA/FISH OIL 1,000 MG CAPSULE PO SCH (09:15)
[2022-03-25] MEDS: MULTIVITAMINS WITH MINERALS, THERAPEUTIC TABLET PO SCH (09:16)
[2022-03-25] MEDS: VITAMIN E 200 UNIT PO SCH (09:16)
[2022-03-25] MEDS ORDERED: PERMETHRIN 5% 60 GM CREAM TP ONE (10:15)
[2022-03-25 16:43] VITALS: BP 110/69
[2022-03-25 18:31] LABS: GLUCOMETER DEV NAME(LOC) POC.BV
[2022-03-25] MEDS: TRIHEXYPHENIDYL HCL 5 MG TABLET PO SCH (20:35)
[2022-03-25] MEDS: ATORVASTATIN CALCIUM 10 MG TABLET PO SCH (20:36)
[2022-03-25] MEDS: MELATONIN 5 MG TABLET PO SCH (20:44)
[2022-03-25] MEDS: QUEtiapine FUMARATE 200 MG TABLET PO SCH (20:49)
[2022-03-26] MEDS: NALTREXONE HCL 50 MG TABLET PO SCH (09:00)
[2022-03-26] MEDS: HydrOXYzine PAMOATE 25 MG CAPSULE PO SCH (09:00)
[2022-03-26] MEDS: DOCUSATE SODIUM 100 MG CAPSULE PO SCH (09:11)
[2022-03-26] MEDS: OMEGA-3/DHA/EPA/FISH OIL 1,000 MG CAPSULE PO SCH (09:11)
[2022-03-26] MEDS: VITAMIN E 200 UNIT PO SCH (09:12)
[2022-03-26] MEDS: FOLIC ACID 1 MG TABLET PO SCH (09:12)
[2022-03-26] MEDS: MULTIVITAMINS WITH MINERALS, THERAPEUTIC TABLET PO SCH (09:12)
[2022-03-26] MEDS: THIAMINE 100 MG TABLET PO SCH ×2 (09:12→16:06)
[2022-03-26] MEDS ORDERED: TRIH5TAB3 PO (13:54)
[2022-03-26] MEDS ORDERED: MELA5TAB40 PO (13:54)
[2022-03-26] MEDS ORDERED: QUET200T30 PO (13:54)
[2022-03-26] MEDS ORDERED: HYDR-4808 PO (13:54)
[2022-03-26] MEDS ORDERED: NALT50TA PO (13:54)
[2022-03-26 16:25] VITALS: BP 12/78
[2022-03-26] MEDS ORDERED: ATOR10TA69 PO (16:42)
== END 2022-03-26 16:25 | disposition home or self-care (01) | DRG 885 ==
LOC: EMS 01:35 → B2X 09:31
PROVIDERS: ADMIT Psychiatry & Neurology Psychiatry; ATTEND Psychiatry & Neurology Psychiatry
DX: F25.9 Schizoaffective disorder, unspecified (principal); F70 Mild intellectual disabilities; R45.851 Suicidal ideations; Z20.822 Contact with and (suspected) exposure to COVID-19; F41.9 Anxiety disorder, unspecified; J44.9 Chronic obstructive pulmonary disease, unspecified; K21.9 Gastro-esophageal reflux disease without esophagitis; K59.00 Constipation, unspecified; Z55.9 Problems related to education and literacy, unspecified; Z59.9 Problem related to housing and economic circumstances, unspecified; Z63.9 Problem related to primary support group, unspecified; Z65.3 Problems related to other legal circumstances; Z90.49 Acquired absence of other specified parts of digestive tract; Z91.14 Patient's other noncompliance with medication regimen; Z91.018 Allergy to other foods
CPT/HCPCS: 80053; 81003; 85025; 99285; G0480; Q9967